=== PATIENT | female | born 1965 | race Caucasian/White ===

== ENCOUNTER 2016-11-12 08:26 | Inpatient (IN) | payer BC ==
[2016-11-12] MEDS ORDERED: HYDROmorphone 1 MG/ML 1 ML SYRINGE IVP STA ×2 (08:47→10:12)
[2016-11-12] MEDS ORDERED: SODIUM CHLORIDE 0.9% 1,000 ML IV STA ×2 (08:47)
[2016-11-12] MEDS ORDERED: ONDANSETRON 4 MG/2 ML VIAL IVP STA (08:47)
--- NOTE | 2016-11-12 08:52 | ED ---
Abdominal Pain HPI - General Chief Complaint: Abdominal Pain Stated Complaint: Abd pain Time Seen by Provider: 11/12/16 08:39 Source: patient, RN notes reviewed Mode of arrival: wheelchair Limitations: no limitations - History of Present Illness Initial Comments: Patient is a 50-year-old female who presents emergency room today with chief complaint of abdominal pain 3 days. She does admit to episodes of nausea vomiting. Admits to pain in the epigastric left upper quadrant that radiates to the back. Patient unable to describe the pain but states it is constant. Patient does admit that it reminds her of pain returns that she's had in the past. Does admit to a history of cholecystectomy. Patient denies any recent fever, chills, shortness of breath, chest pain, back pain, numbness or tingling , dysuria or hematuria, constipation or diarrhea, headaches or visual changes, or any other complaints. - Related Data Home Medications Medication Instructions Recorded Confirmed Loratadine [Claritin] 10 mg PO DAILY 03/20/14 05/04/14 RABEprazole SODIUM [Aciphex] 20 mg PO DAILY 03/20/14 05/04/14 Ovcon 35 1 tab PO QAM 04/30/14 05/04/14 Allergies Allergy/AdvReac Type Severity Reaction Status Date / Time No Known Allergies Allergy Verified 11/12/16 08:37 Review of Systems ROS Statement: Those systems with pertinent positive or pertinent negative responses have been documented in the HPI. ROS Other: All systems not noted in ROS Statement are negative. Past Medical History Past Medical History: GERD/Reflux Additional Past Medical History / Comment(s): pancreatitis History of Any Multi-Drug Resistant Organisms: None Reported Past Surgical History: Appendectomy, Cholecystectomy Past Anesthesia/Blood Transfusion Reactions: No Reported Reaction Past Psychological History: No Psychological Hx Reported Smoking Status: Never smoker Past Alcohol Use History: None Reported Past Drug Use History: None Reported - Past Family History Sister(s) Family Medical History: Cancer Additional Family Medical History / Comment(s): COLON General Exam - General Exam Comments Initial Comments: General: The patient is awake and alert, in no distress, and does not appear acutely ill. Eye: Pupils are equal, round and reactive to light, extra-ocular movements are intact. No nystagmus. There is normal conjunctiva bilaterally. No signs of icterus. Ears, nose, mouth and throat: There are moist mucous membranes and no oral lesions. Neck: The neck is supple, there is no tenderness or JVD. Cardiovascular: There is a regular rate and rhythm. No murmur, rub or gallop is appreciated. Respiratory: Lungs are clear to auscultation, respirations are non-labored, breath sounds are equal. No wheezes, stridor, rales, or rhonchi. Gastrointestinal: No appearance abdomen. Normal bowel sounds. Abdomen soft on palpation. Patient does have mild tenderness in epigastric left upper quadrant. No rebound tenderness. No guarding. No CVA tenderness. Musculoskeletal: Normal ROM, no tenderness. Strength 5/5. Sensation intact. Pulses equal bilaterally 2+. Neurological: A&O x 3. CN II-XII intact, There are no obvious motor or sensory deficits. Coordination appears grossly intact. Speech is normal. Skin: Skin is warm and dry and no rashes or lesions are noted. Psychiatric: Cooperative, appropriate mood & affect, normal judgment. Limitations: no limitations Course Vital Signs 11/12/16 11/12/16 08:36 11:31 Temperature 97.4 F L 98.4 F Pulse Rate 101 H 90 Respiratory 20 16 Rate Blood Pressure 153/86 142/86 O2 Sat by Pulse 98 93 L Oximetry Medical Decision Making - Medical Decision Making Patient's CT does show findings consistent with acute finger tenderness with no areas of decreased enhancement to suggest necrotizing pinky tenderness. 2. Numerous hypoattenuated lesions within the spleen that are too small to accurately characterize and could be artifactual related to phase of enhancement. Case discussed with attending physician to discuss case with admitting physician Dr. Washington - Lab Data Result diagrams: 11/12/16 09:25 11/12/16 09:25 Lab Results 11/12/16 11/12/16 11/12/16 Range/Units 09:14 09:14 09:25 WBC (3.8-10.6) k/uL RBC (3.80-5.40) m/uL Hgb (11.4-16.0) gm/dL Hct (34.0-46.0) % MCV (80.0-100.0) fL MCH (25.0-35.0) pg MCHC (31.0-37.0) g/dL RDW (11.5-15.5) % Plt Count (150-450) k/uL Neutrophils % % Lymphocytes % % Monocytes % % Eosinophils % % Basophils % % Neutrophils # (1.3-7.7) k/uL Lymphocytes # (1.0-4.8) k/uL Monocytes # (0-1.0) k/uL Eosinophils # (0-0.7) k/uL Basophils # (0-0.2) k/uL Sodium 139 (137-145) mmol/L Potassium 3.5 (3.5-5.1) mmol/L Chloride 101 (98-107) mmol/L Carbon Dioxide 22 (22-30) mmol/L Anion Gap 16 mmol/L BUN 10 (7-17) mg/dL Creatinine 0.87 (0.52-1.04) mg/dL Est GFR (MDRD) Af Amer >60 (>60 ml/min/1.73 sqM) Est GFR (MDRD) Non-Af >60 (>60 ml/min/1.73 sqM) Glucose 82 (74-99) mg/dL Calcium 9.4 (8.4-10.2) mg/dL Total Bilirubin 0.6 (0.2-1.3) mg/dL AST 13 L (14-36) U/L ALT 18 (9-52) U/L Alkaline Phosphatase 87 (38-126) U/L Total Protein 7.6 (6.3-8.2) g/dL Albumin 4.0 (3.5-5.0) g/dL Amylase 107 (30-110) U/L Lipase 161 (23-300) U/L Urine Color Yellow Urine Appearance Cloudy H (Clear) Urine pH 5.5 (5.0-8.0) Ur Specific Equality 1.013 (1.001-1.035) Urine Protein Trace H (Negative) Urine Glucose (UA) Negative (Negative) Urine Ketones 4+ H (Negative) Urine Blood Small H (Negative) Urine Nitrite Negative (Negative) Urine Bilirubin Negative (Negative) Urine Urobilinogen <2.0 (<2.0) mg/dL Ur Leukocyte Esterase Moderate H (Negative) Urine RBC 4 (0-5) /hpf Urine WBC 26 H (0-5) /hpf Ur Squamous Epith Cells 7 H (0-4) /hpf Urine Bacteria Many H (None) /hpf Hyaline Casts 4 H (0-2) /lpf Urine Mucus Rare H (None) /hpf Urine HCG, Qual Not Detected (Not Detectd) 11/12/16 Range/Units 09:25 WBC 21.2 H (3.8-10.6) k/uL RBC 4.93 (3.80-5.40) m/uL Hgb 14.8 (11.4-16.0) gm/dL Hct 43.8 (34.0-46.0) % MCV 88.8 (80.0-100.0) fL MCH 30.1 (25.0-35.0) pg MCHC 33.9 (31.0-37.0) g/dL RDW 13.9 (11.5-15.5) % Plt Count 201 (150-450) k/uL Neutrophils % 91 % Lymphocytes % 4 % Monocytes % 3 % Eosinophils % 1 % Basophils % 0 % Neutrophils # 19.3 H (1.3-7.7) k/uL Lymphocytes # 0.8 L (1.0-4.8) k/uL Monocytes # 0.7 (0-1.0) k/uL Eosinophils # 0.2 (0-0.7) k/uL Basophils # 0.0 (0-0.2) k/uL Sodium (137-145) mmol/L Potassium (3.5-5.1) mmol/L Chloride (98-107) mmol/L Carbon Dioxide (22-30) mmol/L Anion Gap mmol/L BUN (7-17) mg/dL Creatinine (0.52-1.04) mg/dL Est GFR (MDRD) Af Amer (>60 ml/min/1.73 sqM) Est GFR (MDRD) Non-Af (>60 ml/min/1.73 sqM) Glucose (74-99) mg/dL Calcium (8.4-10.2) mg/dL Total Bilirubin (0.2-1.3) mg/dL AST (14-36) U/L ALT (9-52) U/L Alkaline Phosphatase (38-126) U/L Total Protein (6.3-8.2) g/dL Albumin (3.5-5.0) g/dL Amylase (30-110) U/L Lipase (23-300) U/L Urine Color Urine Appearance (Clear) Urine pH (5.0-8.0) Ur Specific Equality (1.001-1.035) Urine Protein (Negative) Urine Glucose (UA) (Negative) Urine Ketones (Negative) Urine Blood (Negative) Urine Nitrite (Negative) Urine Bilirubin (Negative) Urine Urobilinogen (<2.0) mg/dL Ur Leukocyte Esterase (Negative) Urine RBC (0-5) /hpf Urine WBC (0-5) /hpf Ur Squamous Epith Cells (0-4) /hpf Urine Bacteria (None) /hpf Hyaline Casts (0-2) /lpf Urine Mucus (None) /hpf Urine HCG, Qual (Not Detectd) Disposition Clinical Impression: Acute pancreatitis Disposition: ADMITTED IP TO THIS HOSP Condition: Good Time of Disposition: 11:43
[2016-11-12 09:43] LABS: Appearance,Urine Cloudy (Clear); Bacteria,Urine Many /hpf; Bilirubin,Urine Negative (Negative); Glucose,Urine (UA) Negative (Negative); Ketones,Urine 4+ (Negative); Leukocyte Esterase,Urine Moderate (Negative); Mucus,Urine Rare /hpf; Nitrite,Urine Negative (Negative); PH, Urine 5.5 (5.0-8.0); Particle Count 17122; Protein,Urine Trace (Negative); RBC,Urine 4 /hpf (0-5); Specific Gravity,Urine 1.013 (1.001-1.035); Squamous Epithelial Cell,Urine 7 /hpf (0-4); UA Billing (MACRO vs. MICRO) MICRO; Urobilinogen,Urine <2.0 mg/dL (<2.0); WBC,Urine 26 /hpf (0-5)
[2016-11-12 09:45] LABS: Basophils % (A) 0 %; CH 30.1; Eosinophils # (A) 0.2 k/uL (0-0.7); Eosinophils % (A) 1 %; HCT 43.8 % (34.0-46.0); HDW 2.76; HGB 14.8 gm/dL (11.4-16.0); Luc # (Auto) 0.22; Luc % (Auto) 1; Lymphocytes # (A) 0.8 k/uL (1.0-4.8); Lymphocytes % (A) 4 %; MCH 30.1 pg (25.0-35.0); MCHC 33.9 g/dL (31.0-37.0); MCV 88.8 fL (80.0-100.0); Mean Platelet Volume 6.8; Monocytes # (A) 0.7 k/uL (0-1.0); Monocytes % (A) 3 %; Neutrophils # (A) 19.3 k/uL (1.3-7.7); Neutrophils % (A) 91 %; RBC 4.93 m/uL (3.80-5.40); RDW 13.9 % (11.5-15.5); WBC 21.2 k/uL (3.8-10.6); WBC (Perox) 20.14
[2016-11-12 09:54] LABS: ALT 18 U/L (9-52); AST 13 U/L (14-36); Alkaline Phosphatase 87 U/L (38-126); Amylase 107 U/L (30-110); Anion Gap 16 mmol/L; Blood Urea Nitrogen 10 mg/dL (7-17); Calcium 9.4 mg/dL (8.4-10.2); Carbon Dioxide 22 mmol/L (22-30); Chloride 101 mmol/L (98-107); Glucose 82 mg/dL (74-99); Non-African American GFR(MDRD) >60 (>60 ml/min/1.73 sqM); Potassium 3.5 mmol/L (3.5-5.1); Sodium 139 mmol/L (137-145); Total Bilirubin 0.6 mg/dL (0.2-1.3); Total Protein 7.6 g/dL (6.3-8.2)
--- NOTE | 2016-11-12 10:03 | XR ---
EXAMINATION TYPE: XR KUB DATE OF EXAM: 11/12/2016 9:39 AM COMPARISON: 03/20/2014 HISTORY: Abdominal pain and vomiting with associated anorexia. History of cholecystectomy. TECHNIQUE: Upright and supine abdominal radiograph were obtained. FINDINGS: Cholecystectomy clips are seen within the right upper quadrant as well as dropped clip over lying the right iliac crest. Bowel gas pattern is nonobstructive with air noted throughout the colon as well as rectum. No dilated bowel or differential air-fluid levels are visualized. No abnormal calc ifications are seen within the abdomen or pelvis. No gross evidence for organomegaly. Liver length is noted within the right low pelvis. IMPRESSION: Nonobstructive bowel gas pattern with no acute intra-abdominal pathology.
[2016-11-12] MEDS ORDERED: RX INFO: IV CONTRAST WAS GIVEN 1 EACH MISC MISCELLANE PRN (10:12)
--- NOTE | 2016-11-12 11:12 | CT ---
EXAMINATION TYPE: CT abdomen pelvis w con DATE OF EXAM: 11/12/2016 10:46 AM HISTORY: Abdominal pain for 3 days. History of pancreatitis. Surgical history includes appendectomy and cholecystectomy. CT DLP: 885.70mGycm Automated Exposure Control for Dose Reduction was Utilized. CONTRAST: CT scan of the abdomen and pelvis is performed with IV Contrast, patient injected with 100 ml mL of O mnipaque 300. COMPARISON: None. FINDINGS: LUNG BASES: Minimal bibasilar subsegmental atelectasis is noted.. LIVER/GB: 1.5 cm hypoattenuated hepatic lesion within the hepatic dome represents a benign hepatic cy st. Remainder of the hepatic parenchyma enhances homogeneously. Cholecystectomy clips reside within t he right upper quadrant. Dropped clip is noted along the right lateral conal fascia. PANCREAS: The pancreas is diffusely enlarged and slightly hypoattenuated with no focal areas of decre ased enhancement. No pancreatic ductal dilation is evident. Mild generalized peripancreatic fat stran ding is seen most pronounced near the lesser curvature of the stomach inferiorly. No peripancreatic f ocal fluid collections are seen. Portal venous vasculature appears patent. No splenic artery pseudoan eurysm is evident. SPLEEN: Numerous areas of hypoattenuation are seen within the spleen that are subcentimeter and too s mall to accurately characterize. The largest of these measures approximately 7 mm and does not measur e Hounsfield units compatible with fluid. ADRENALS: No significant abnormality is seen. KIDNEYS: No significant abnormality is seen. BOWEL: Numerous colonic diverticula are noted without pericolonic fat stranding. UTERUS/ADNEXA: The uterus is lobulated and enlarged with numerous exophytic hypoattenuated masses the largest measuring up to 6.7 cm emanating from the right lateral fundal myometrium. Central high dens ity in the right adnexa may relate to hemorrhage ovarian follicle or be contained within the most sup erior aspect of a pedunculated uterine leiomyoma. This is seen on image 68 of 98 on series 3. LYMPH NODES: No greater than 1cm abdominal or pelvic lymph nodes are appreciated. Few prominent but n ot enlarged periaortic lymph nodes are present. OSSEOUS STRUCTURES: No significant abnormality is seen. No suspicious osseous lesions are seen. OTHER: Diastases recti with a small fat filled umbilical hernia are seen. IMPRESSION: 1. Findings compatible with acute pancreatitis with no areas of decreased enhancement to suggest necr otizing pancreatitis. No focal fluid collections, splenoportal thrombosis, or splenic arterial pseudo aneurysms are present. 2. Numerous hypoattenuated lesions within the spleen that are too small to accurately characterize an d could be artifactual related to phase of enhancement. Correlate with white blood cell count. 3. Macrolobulated uterus, presumably relating to uterine fibroids with focal area of hyperattenuation along the right adnexa. This may relate to hemorrhagic cyst or be contained within a pedunculated ut erine leiomyoma. Pelvic ultrasound could be performed for further evaluation if clinically warranted.
[2016-11-12] MEDS ORDERED: ACETAMINOPHEN TAB 325 MG TAB PO PRN (11:44)
[2016-11-12] MEDS ORDERED: NALOXONE 0.4 MG/ML 1 ML VIAL IV PRN (11:44)
[2016-11-12] MEDS ORDERED: SODIUM CHLORIDE 0.9% 1,000 ML IV ONE (11:44)
[2016-11-12] MEDS ORDERED: ONDANSETRON 4 MG/2 ML VIAL IVP PRN (11:44)
[2016-11-12] MEDS: HYDROmorphone 1 MG/ML 1 ML SYRINGE IV PRN ×3 (14:10→21:39)
[2016-11-12] MEDS ORDERED: ENOXAPARIN 40 MG/0.4 ML SYRINGE SQ SCH (21:00)
[2016-11-12] MEDS: SODIUM CHLORIDE 0.9% 1,000 ML IV SCH (21:10)
[2016-11-13] MEDS: HYDROmorphone 1 MG/ML 1 ML SYRINGE IV PRN (02:35)
[2016-11-13] MEDS: SODIUM CHLORIDE 0.9% 1,000 ML IV SCH ×4 (03:49→21:00)
--- NOTE | 2016-11-13 05:22 | HP ---
DATE OF ADMISSION: 11/12/2016 PRESENTING COMPLAINT: Abdominal pain. HISTORY OF PRESENTING COMPLAINT: This is a very pleasant 50-year-old patient of Dr. Brower. Patient's chronic stable medical conditions include GERD, uterine fibroids, menorrhagia. Patient had a previous episode of pancreatitis, was found to have some gallbladder sludge. Did have a cholecystectomy. Patient for 3 days started having increasing abdominal pain in the epigastric, mid abdomen level. Pain going to the back, nausea or vomiting and finally decided to come in. CT scan confirmed acute pancreatitis. Patient admitted for the same. Denies any alcohol, maybe 1 or 2 drinks a year. Put on IV fluids. REVIEW OF SYSTEMS: CONSTITUTIONAL: Tired. HEENT: None. RESPIRATORY: None. CARDIOVASCULAR: None. GASTROINTESTINAL: As above. GENITOURINARY: Patient has menorrhagia. DERMATOLOGIC: None. HEMATOLOGIC: None. LYMPHATICS: None. PSYCHIATRY: None. NEUROLOGICAL: None. Past history of pancreatitis, GERD, uterine fibroids, menorrhagia. PAST SURGICAL HISTORY: Appendectomy, cholecystectomy, uterine fibroid removal. SOCIAL HISTORY: No smoking. No alcohol. 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 . Family history of colon cancer. HOME MEDICATIONS: 1. AcipHex 20 mg p.o. daily. 2. Ovcon 35 one tablet p.o. daily. 3. Claritin 10 mg daily. ALLERGIES: None. . On examination, temperature 97.9, pulse 86, respiration 19, blood pressure 123/73, pulse ox 95% on room air. GENERAL APPEARANCE: Average built, lying in bed, not in distress. EYES: Pupils equal. Conjunctivae normal. HEENT: Oral cavity normal. NECK: JVD not raised. Mass not palpable. RESPIRATORY: Effort normal. LUNGS: Clear. CARDIOVASCULAR: First and second sounds normal. No edema. ABDOMEN: Epigastric tenderness. No guarding or rigidity. Liver and spleen not palpable. LYMPHATIC: No lymph nodes palpable in neck or axillae. PSYCHIATRY: Alert and oriented x3. Mood and affect normal. NEUROLOGICAL: Pupils equal. Cranial nerves grossly intact. Power and sensation grossly intact. INVESTIGATIONS: White count 21.2, hemoglobin 14.9, increased neutrophils. Potassium 3.5. UA noted. CT scan of the abdomen reporting acute pancreatitis like picture. ASSESSMENT: 1. Acute pancreatitis in a patient who has had prior episode, no precipitating cause. Patient's amylase and lipase was normal, which is ( ) unusual because patient does not have symptoms of chronic pancreatitis, otherwise. 2. Leukocytosis from above. 3. Asymptomatic bacteriuria in ( ) samples and no specific urine symptoms. 4. Chronic gastroesophageal reflux disease. 5. Chronic uterine fibroids. 6. Chronic menorrhagia from fibroids. PLAN: At this point, the patient will be given IV fluids, made n.p.o. except for ice chips. Repeat labs in the morning. Care was discussed in detail with the patient and at bedside. Questions were answered.
[2016-11-13 08:27] LABS: Basophils % (A) 0 %; CH 30.2; CHCM 33.6; Eosinophils # (A) 0.2 k/uL (0-0.7); Eosinophils % (A) 1 %; HCT 36.8 % (34.0-46.0); HDW 2.79; HGB 11.9 gm/dL (11.4-16.0); Luc # (Auto) 0.25; Luc % (Auto) 2; Lymphocytes % (A) 6 %; MCH 29.1 pg (25.0-35.0); MCHC 32.2 g/dL (31.0-37.0); MCV 90.3 fL (80.0-100.0); Mean Platelet Volume 7.1; Monocytes # (A) 0.8 k/uL (0-1.0); Monocytes % (A) 5 %; Neutrophils # (A) 13.9 k/uL (1.3-7.7); Neutrophils % (A) 86 %; RBC 4.08 m/uL (3.80-5.40); RDW 13.9 % (11.5-15.5); WBC 16.1 k/uL (3.8-10.6); WBC (Perox) 17.19
[2016-11-13 08:39] LABS: AST 10 U/L (14-36); Alkaline Phosphatase 68 U/L (38-126); Amylase 37 U/L (30-110); Anion Gap 9 mmol/L; Blood Urea Nitrogen 8 mg/dL (7-17); Calcium 8.1 mg/dL (8.4-10.2); Carbon Dioxide 26 mmol/L (22-30); Chloride 102 mmol/L (98-107); Glucose 92 mg/dL (74-99); Non-African American GFR(MDRD) >60 (>60 ml/min/1.73 sqM); Potassium 3.1 mmol/L (3.5-5.1); Sodium 137 mmol/L (137-145); Total Bilirubin 0.6 mg/dL (0.2-1.3); Total Protein 6.2 g/dL (6.3-8.2)
[2016-11-13 08:46] LABS: ALT 21 U/L (9-52)
[2016-11-13] MEDS: KETOROLAC 30 MG/ML 1 ML VIAL IVP PRN (11:21)
[2016-11-13] MEDS ORDERED: POTASSIUM CHLORIDE ER 20 MEQ TAB.ER PO STA (19:33)
--- NOTE | 2016-11-13 20:12 | CONS ---
DATE OF CONSULTATION: 11/13/2016 REASON FOR CONSULTATION: Abdominal pain. HISTORY OF PRESENT ILLNESS: The patient is a 50-year-old pleasant lady admitted to the hospital because of severe epigastric pain for the last 4 days' duration. The pain continued to progressively get worse, associated with some nausea and vomiting, and yesterday she came into the emergency room and subsequently was admitted to the hospital for further evaluation. She had a similar episode of pain about 3 years ago, at which time she was diagnosed with acute pancreatitis. In the ER she had amylase and lipase done that were within normal limits, but she had a CT of the abdomen and pelvis done that showed the pancreas to be diffusely enlarged with hypoattenuation and mild generalized peripancreatic stranding consistent with acute pancreatitis. This morning she still has some pain, which is better. No further episodes of nausea or vomiting. Her past medical history is significant for: 1. Prior history of pancreatitis 3 years ago. 2. History of gastroesophageal reflux disease, on AcipHex. PAST SURGICAL HISTORY: 1. Appendectomy. 2. Cholecystectomy. MEDICATIONS AT HOME: 1. AcipHex. 2. Claritin. 3. Ovcon. ALLERGIES: NONE. SOCIAL HISTORY: No smoking. Occasional alcohol use. FAMILY HISTORY: Unremarkable. REVIEW OF SYSTEMS: CARDIOPULMONARY: No chest pain or shortness of breath. GENITOURINARY: No dysuria or hematuria. MUSCULOSKELETAL: Unremarkable. SKIN: Unremarkable. ENDOCRINE: Unremarkable. PSYCHIATRIC: Unremarkable. NEUROLOGY: Unremarkable. ENT/VISION: Unremarkable. CONSTITUTIONAL: No recent weight loss. No fever, chills, night sweats. On physical examination, she appears comfortable, in no apparent distress. Vital signs are stable. Blood pressure is 133/65, pulse rate 88, temperature 98.1. HEENT EXAMINATION: Unremarkable. Conjunctivae pink. Sclerae anicteric. Oral cavity with no lesions. NECK: No JVD or lymph node enlargement. Chest was clear to auscultation. HEART: Regular rate and rhythm. ABDOMEN: Soft. There was mild tenderness in the epigastric area. Bowel sounds are positive. No organomegaly. EXTREMITIES: No pedal edema. SKIN: No rashes. NEURO: She is alert and oriented x3. No focal deficits. LABS DONE AT THE TIME OF ADMISSION TO THE HOSPITAL: Amylase and lipase are within normal limits. WBC was 21.2 and today it is 16.1. Hemoglobin is normal. Platelets are normal. ALT, AST, T-bili and alkaline phosphatase are normal. Amylase is 37. Lipase is 80. CT of the abdomen showed pancreas to be diffusely enlarged, consistent with acute pancreatitis. IMPRESSION: This is a lady who presents with severe epigastric pain for the last 4 days' duration and noted to have normal amylase and lipase; however, CT scan did show changes consistent with acute pancreatitis. She had a similar episode about 3 years ago and, according to the patient, she was diagnosed with severe pancreatitis needing 5 days of hospitalization. No history of alcohol abuse. Her serum transaminases are within normal limits. She is status post gallbladder surgery 3 years ago with sludge in the gallbladder. Etiology of pancreatitis at this time is unclear. RECOMMENDATIONS: 1. Start her on clear liquid diet. 2. Repeat labs today. 3. If her symptoms continue to improve, she can be discharged home tomorrow with an outpatient workup for acute recurrent pancreatitis in the near future. In the meantime, I have requested fasting serum triglycerides and IgG4 levels to evaluate for autoimmune pancreatitis. Will follow the patient closely during her hospital stay. Thank you for this consultation.
[2016-11-13] MEDS ORDERED: ENOXAPARIN 40 MG/0.4 ML SYRINGE SQ SCH (21:00)
[2016-11-14] MEDS: KETOROLAC 30 MG/ML 1 ML VIAL IVP PRN (04:32)
--- NOTE | 2016-11-14 05:16 | PN ---
DATE OF SERVICE: 11/13/2016 PRESENTING COMPLAINT: Abdominal pain. INTERVAL HISTORY: This is a 50-year-old female who presented to the emergency department on 11/12/2016 with complaints of increasing abdominal pain in the epigastric and abdominal area for the previous 3 days. Pain described as going to her back, nausea and vomiting. CT scan confirmed acute pancreatitis. Today the patient and patient's at the bedside. Patient appears comfortable, lying in bed, sitting with knees drawn to her chest. No particular reason. No acute distress noted or voiced. Patient say she took some IV pain medications from her nurse for increasing pain to her abdominal area. Review of systems done for constitutional, cardiovascular, GI, pulmonary, with relevant findings as above. CURRENT MEDICATIONS: Acetaminophen, enoxaparin, hydromorphone, ketorolac, ondansetron, normal saline IV fluids. PHYSICAL EXAM: VITAL SIGNS: Temperature 98.6, pulse 82, respirations 19, blood pressure 104/85, oxygen saturation 90% on room air. GENERAL APPEARANCE: Patient lying in bed, appears comfortable. Complains of mild epigastric and left upper quadrant pain. EYES: Pupils equal. Conjunctivae normal. NECK: JVD not raised. Mass not palpable. LUNGS: Breath sounds clear to auscultation bilaterally. RESPIRATORY: Effort normal. Unlabored. CARDIOVASCULAR: S1, S2 normal. Trace edema noted to bilateral feet and legs. ABDOMEN: Soft, tender to palpation to the left upper quadrant, mid epigastric area. PSYCHIATRIC: Alert and oriented x3. Mood and affect normal. INVESTIGATIONS: White blood cell count 16.1, down from 21.2. Potassium 3.1. Calcium 8.1. AST 10. Total protein 6.2. Albumin 3.0. ASSESSMENT: 1. Acute pancreatitis in a patient who has had a prior episode with no precipitating cause. Patient's amylase and lipase is normal, which is somewhat unusual because the patient does not have symptoms of chronic pancreatitis, otherwise. 2. Leukocytosis from above. 3. Asymptomatic ( ) in urine samples and no specific urine symptoms. 4. Chronic gastroesophageal reflux disease. 5. Chronic uterine fibroids. 6. Chronic menorrhagia from fibroids. PLAN: Patient continues to receive IV fluids. Diet has been advanced to clear liquids to be advanced further if patient can tolerate to soft bland, low fat diet. Labs to be repeated in the a.m. Plan of care was discussed in detail with both the patient and the patient's .
[2016-11-14] MEDS: SODIUM CHLORIDE 0.9% 1,000 ML IV SCH (05:45)
[2016-11-14 07:35] VITALS: BP 121/75; PULSE 72; RESP 19; TEMP 97.3
[2016-11-14 09:35] LABS: CH 30.2; CHCM 33.3; HCT 38.5 % (34.0-46.0); HDW 2.94; HGB 12.2 gm/dL (11.4-16.0); MCH 28.8 pg (25.0-35.0); MCHC 31.7 g/dL (31.0-37.0); RBC 4.23 m/uL (3.80-5.40); RDW 13.9 % (11.5-15.5); WBC 9.2 k/uL (3.8-10.6)
[2016-11-14 10:10] LABS: Anion Gap 12 mmol/L; Blood Urea Nitrogen 8 mg/dL (7-17); Calcium 8.3 mg/dL (8.4-10.2); Carbon Dioxide 22 mmol/L (22-30); Chloride 107 mmol/L (98-107); Glucose 146 mg/dL (74-99); Non-African American GFR(MDRD) >60 (>60 ml/min/1.73 sqM); Potassium 3.1 mmol/L (3.5-5.1); Sodium 141 mmol/L (137-145); Triglycerides 75 mg/dL (<150)
--- NOTE | 2016-11-14 12:06 | P.PN ---
Subjective Principal diagnosis: 50 year old admitted with midepigastric upper abdominal pain with normal amylase /lipase LFTs. History of pancreatitis 3 years ago. Radiographic features suggestive of acute pancreatitis. Feels better today. Minimal pain. Triglycerides not elevated. IgG sublass pending. Afebrile. Objective - Vital Signs Vital signs: Vital Signs Temp 97.3 F L 11/14/16 07:00 Pulse 72 11/14/16 07:00 Resp 19 11/14/16 07:00 BP 121/75 11/14/16 07:00 Pulse Ox 95 11/14/16 07:00 Intake & Output 11/13/16 11/14/16 11/14/16 18:59 06:59 18:59 Other: # Voids 1 1 1 # Bowel Movements 0 - Exam General appearance: The patient is alert, oriented, in no acute distress. HET: Head is normocephalic and atraumatic. Pupils are equal and reactive. Oropharynx is clear without lesions. Neck: Supple without lymphadenopathy. Trachea midline. Heart: S1 S2. Regular rate and rhythm. Lungs: No crackles or wheezes are heard. Abdomen: Soft, nontender, nondistended with bowel sounds. No peritoneal signs. No palpable organomegaly or masses. Extremities: Normal skin color and turgor. No cyanosis, rash, ulceration, clubbing, or edema. Radial and pedal pulses are 2/4 bilaterally. Neurological: No focal deficits. Strength and sensation are grossly intact. - Labs CBC & Chem 7: 11/14/16 08:32 11/14/16 08:32 Labs: Abnormal Lab Results - Last 24 Hours (Table) 11/14/16 Range/Units 08:32 Potassium 3.1 L (3.5-5.1) mmol/L Glucose 146 H (74-99) mg/dL Calcium 8.3 L (8.4-10.2) mg/dL Assessment and Plan (1) Acute pancreatitis Narrative/Plan: Radiographic evidence to suggest acute pancreatitis biochemically amylase lipase LFTs within normal limits with history of pancreatitis. Possible autoimmune pancreatitis Status: Acute Plan: 1. Advance diet. 2. Agreeable for DC. 3. RTO 1 week for reevaluation. Assessment and plan of care discussed with Dr. Hardin.
--- NOTE | 2016-11-14 13:47 | PN ---
DATE OF SERVICE: 11/13/2016 ATTENDING NOTE: This patient was seen and examined by me yesterday on 11/13/2016. I agree with the note of my nurse practitioner, Ms. Duenas with changes as below. This is a patient admitted with acute pancreatitis, cause unknown. Overall feeling better. Did tolerate some clear liquids, up to the bathroom. On exam, ABDOMEN: Epigastric mild tenderness. No guarding or rigidity. INVESTIGATIONS: Amylase, lipase was normal. White count is down to 16.1. ASSESSMENT: 1. Acute pancreatitis, idiopathic, leukocytosis is improving. 2. Asymptomatic bacteriuria. PLAN: Care was discussed with the patient. Diet will be slowly advanced. Overall doing better. Questions were answered.
[2016-11-15 11:23] LABS: IgG Subclass 3 20.3 mg/dL (11.0-85.0); IgG Subclass 4 84.2 mg/dL (3.0-175.0)
--- NOTE | 2016-11-15 12:45 | DS ---
DATE OF ADMISSION: 11/12/2016 DATE OF DISCHARGE: 11/14/2016 FINAL DIAGNOSES: 1. Acute idiopathic pancreatitis, present on admission. 2. Leukocytosis from above. 3. Asymptomatic bacteriuria. 4. Chronic gastroesophageal reflux disease. 5. Chronic uterine fibroids. 6. Chronic menorrhagia from fibroids. HOSPITAL COURSE: This patient presented with acute pancreatitis shown by CT scan and doing much better by the time of discharge. Care was discussed in detail with the patient. Patient numbers were good at the time of discharge. Care was discussed in detail including prognosis. The patient will see Dr. Shahbaz Hardin as an outpatient. On examination, lungs are clear. CARDIOVASCULAR: First and second sounds normal. ABDOMEN: Soft, nontender. DISCHARGE MEDICATIONS: 1. AcipHex 20 mg daily. 2. Ovcon 35 one tablet p.o. daily. 3. Claritin 10 mg p.o. daily. DIET: Soft, low-fat. Follow with Dr. Shahbaz Hardin on 12/06/2016. Follow with Dr. Mina Brower on 2016. Discharge planning more than 35 minutes.
== END 2016-11-14 13:57 | disposition home or self-care (01) | DRG 440 ==
LOC: EC 08:26 → 4MS4W 11:41
PROVIDERS: ADMIT Hospitalist; ATTEND Hospitalist
DX: K85.90 Acute pancreatitis without necrosis or infection, unspecified (principal); D25.9 Leiomyoma of uterus, unspecified; K21.9 Gastro-esophageal reflux disease without esophagitis; N92.0 Excessive and frequent menstruation with regular cycle; Z80.0 Family history of malignant neoplasm of digestive organs; Z79.899 Other long term (current) drug therapy
CPT/HCPCS: 36415; 74000; 74177; 80048; 80053; 81001; 81025; 82150; 82787; 83690; 84478; 85025; 85027; 96361; 96374; 96375; 96376; 99285

== ENCOUNTER 2016-12-24 07:53 | Inpatient (IN) | payer BC ==
[2016-12-24] MEDS ORDERED: HYDROmorphone 1 MG/ML 1 ML SYRINGE IVP STA (08:26)
[2016-12-24] MEDS ORDERED: SODIUM CHLORIDE 0.9% 1,000 ML IV STA (08:26)
[2016-12-24] MEDS ORDERED: ONDANSETRON 4 MG/2 ML VIAL IVP STA (08:26)
--- NOTE | 2016-12-24 08:30 | ED ---
Abdominal Pain HPI - General Source: patient, RN notes reviewed Mode of arrival: wheelchair Limitations: no limitations <Key Valadez - Last Filed: 12/24/16 09:25> <Jose G Gomez - Last Filed: 12/24/16 09:32> - General Chief Complaint: Abdominal Pain Stated Complaint: abd pain Time Seen by Provider: 12/24/16 08:22 - History of Present Illness Initial Comments: 51-year-old female presents to the emergency department with a chief of abdominal pain. Patient states she started to develop this abdominal pain on Sunday. Patient states is in the center of her abdomen and radiates to the back. Patient states she has a long history of pancreatitis there currently trying to figure out why she is getting it. Patient states her pain feels much like that so she was concerned. Patient states she's had nausea vomiting with this. Patient denies any diarrhea any fevers. Patient states that she was concerned due to her pain so she thought that she should be evaluated. Patient denies any cough cold or runny nose. Patient states she has had her gallbladder and her appendix removed.Patient denies any recent fever, chills, shortness of breath, chest pain, back pain, numbness or tingling, dysuria or hematuria, constipation or diarrhea, headaches or visual changes, or any other current symptoms. (Key Valadez) - Related Data Home Medications Medication Instructions Recorded Confirmed Loratadine [Claritin] 10 mg PO DAILY 03/20/14 12/24/16 RABEprazole SODIUM [Aciphex] 20 mg PO DAILY 03/20/14 12/24/16 Ovcon 35 1 tab PO QAM 04/30/14 12/24/16 HYDROcodone/APAP 5-325MG [[place] 1 tab PO Q6H PRN 12/24/16 12/24/16 5-325] Ibuprofen [Motrin] 600 mg PO Q6HR PRN 12/24/16 12/24/16 Allergies Allergy/AdvReac Type Severity Reaction Status Date / Time No Known Allergies Allergy Verified 12/24/16 08:32 Review of Systems ROS Other: All systems not noted in ROS Statement are negative. <Key Valadez - Last Filed: 12/24/16 09:25> ROS Other: All systems not noted in ROS Statement are negative. <Jose G Gomez - Last Filed: 12/24/16 09:32> ROS Statement: Those systems with pertinent positive or pertinent negative responses have been documented in the HPI. Past Medical History Past Medical History: GERD/Reflux Additional Past Medical History / Comment(s): pancreatitis History of Any Multi-Drug Resistant Organisms: None Reported Past Surgical History: Appendectomy, Cholecystectomy Additional Past Surgical History / Comment(s): uterine fibroid removed Past Anesthesia/Blood Transfusion Reactions: No Reported Reaction Past Psychological History: No Psychological Hx Reported Smoking Status: Never smoker Past Alcohol Use History: None Reported Past Drug Use History: None Reported - Past Family History Sister(s) Family Medical History: Cancer Additional Family Medical History / Comment(s): COLON <Key Valadez - Last Filed: 12/24/16 09:25> General Exam Limitations: no limitations <Key Valadez - Last Filed: 12/24/16 09:25> <JasonJose G - Last Filed: 12/24/16 09:32> - General Exam Comments Initial Comments: General: The patient is awake and alert, in no distress, and does not appear acutely ill. Eye: Pupils are equal, round and reactive to light, extra-ocular movements are intact; there is normal conjunctiva bilaterally. No signs of icterus. Ears, nose, mouth and throat: There are moist mucous membranes and no oral lesions. Neck: The neck is supple, there is no tenderness. Cardiovascular: There is a regular rate and rhythm. No murmur, rub or gallop is appreciated. Respiratory: Lungs are clear to auscultation, respirations are non-labored, breath sounds are equal. No wheezes, stridor, rales, or rhonchi. Gastrointestinal: Soft, non-distended, epigastric tenderness of the abdomen without masses or organomegaly noted. There is no rebound or guarding present. No CVA tenderness. Bowel sounds are unremarkable. Back: There is no tenderness to palpation in the midline. There is no obvious deformity. No rashes noted. Musculoskeletal: Normal ROM, no tenderness, There is no pedal edema. There is no calf tenderness or swelling. Sensation intact. Pulses equal bilaterally 2+. Neurological: CN II-XII intact, There are no obvious motor or sensory deficits. Coordination appears grossly intact. Speech is normal. Skin: Skin is warm and dry and no rashes or lesions are noted. Psychiatric: Cooperative, appropriate mood & affect, normal judgment. (Key Valadez) Medical Decision Making - Lab Data Result diagrams: 12/24/16 08:20 12/24/16 08:20 - Radiology Data Radiology results: report reviewed, image reviewed <Key Valadez - Last Filed: 12/24/16 09:25> - Lab Data Result diagrams: 12/24/16 08:20 12/24/16 08:20 <Jose G Gomez - Last Filed: 12/24/16 09:32> - Medical Decision Making 51-year-old female presents to the emergency department chief complaint of abdominal pain. At this time patient does appear to have acute pancreatitis. This and we will admit the patient. We did order an ultrasound to be followed up upon by the admitting team. Patient is in agreement with plan. She is feeling better with the medication she had received. We did discuss all her questions. (Key Valadez) Patient reevaluated by myself, Dr. Gomez. Abdomen soft with minimal tenderness at this time. Lab and x-ray reviewed. Case discussed with petition her mother , who will admit for Dr. tanner, covering for . Patient was updated on results and plan. (Jose G Gomez) - Lab Data Lab Results 12/24/16 12/24/16 12/24/16 Range/Units 08:20 08:20 08:20 WBC 21.2 H (3.8-10.6) k/uL RBC 5.00 (3.80-5.40) m/uL Hgb 14.8 (11.4-16.0) gm/dL Hct 44.6 (34.0-46.0) % MCV 89.2 (80.0-100.0) fL MCH 29.6 (25.0-35.0) pg MCHC 33.1 (31.0-37.0) g/dL RDW 14.3 (11.5-15.5) % Plt Count 206 (150-450) k/uL Neutrophils % 92 % Lymphocytes % 5 % Monocytes % 2 % Eosinophils % 1 % Basophils % 0 % Neutrophils # 19.4 H (1.3-7.7) k/uL Lymphocytes # 1.0 (1.0-4.8) k/uL Monocytes # 0.5 (0-1.0) k/uL Eosinophils # 0.2 (0-0.7) k/uL Basophils # 0.0 (0-0.2) k/uL Sodium 138 (137-145) mmol/L Potassium 3.8 (3.5-5.1) mmol/L Chloride 101 (98-107) mmol/L Carbon Dioxide 25 (22-30) mmol/L Anion Gap 12 mmol/L BUN 10 (7-17) mg/dL Creatinine 0.81 (0.52-1.04) mg/dL Est GFR (MDRD) Af Amer >60 (>60 ml/min/1.73 sqM) Est GFR (MDRD) Non-Af >60 (>60 ml/min/1.73 sqM) Glucose 103 H (74-99) mg/dL Calcium 9.1 (8.4-10.2) mg/dL Total Bilirubin 0.7 (0.2-1.3) mg/dL AST 20 (14-36) U/L ALT 19 (9-52) U/L Alkaline Phosphatase 104 (38-126) U/L Total Protein 7.5 (6.3-8.2) g/dL Albumin 4.2 (3.5-5.0) g/dL Amylase 684 H* (30-110) U/L Lipase 2921 H (23-300) U/L Urine Color Yellow Urine Appearance Cloudy H (Clear) Urine pH 5.5 (5.0-8.0) Ur Specific [place] 1.022 (1.001-1.035) Urine Protein Trace H (Negative) Urine Glucose (UA) Negative (Negative) Urine Ketones 2+ H (Negative) Urine Blood Trace H (Negative) Urine Nitrite Negative (Negative) Urine Bilirubin Negative (Negative) Urine Urobilinogen <2.0 (<2.0) mg/dL Ur Leukocyte Esterase Trace H (Negative) Urine RBC 4 (0-5) /hpf Urine WBC 4 (0-5) /hpf Ur Squamous Epith Cells 11 H (0-4) /hpf Urine Bacteria Few H (None) /hpf Urine Mucus Rare H (None) /hpf Disposition Time of Disposition: :26 Decision Date: 12/24/16 Decision Time: : <Key Valadez - Last Filed: 12/24/16 09:25> <Jose G Gomez - Last Filed: 12/24/16 09:32> Clinical Impression: Acute pancreatitis Disposition: ADMITTED IP TO THIS HOSP Condition: Stable Referrals: Mina Brower MD [Primary Care Provider] - 1-2 days
[2016-12-24 08:37] LABS: Basophils % (A) 0 %; CH 30.4; CHCM 34.2; Eosinophils # (A) 0.2 k/uL (0-0.7); Eosinophils % (A) 1 %; HCT 44.6 % (34.0-46.0); HDW 2.67; HGB 14.8 gm/dL (11.4-16.0); Luc # (Auto) 0.14; Luc % (Auto) 1; Lymphocytes % (A) 5 %; MCH 29.6 pg (25.0-35.0); MCHC 33.1 g/dL (31.0-37.0); MCV 89.2 fL (80.0-100.0); Mean Platelet Volume 7.2; Monocytes # (A) 0.5 k/uL (0-1.0); Monocytes % (A) 2 %; Neutrophils # (A) 19.4 k/uL (1.3-7.7); Neutrophils % (A) 92 %; RDW 14.3 % (11.5-15.5); WBC 21.2 k/uL (3.8-10.6); WBC (Perox) 20.21
[2016-12-24 08:40] LABS: Appearance,Urine Cloudy (Clear); Bacteria,Urine Few /hpf; Bilirubin,Urine Negative (Negative); Glucose,Urine (UA) Negative (Negative); Ketones,Urine 2+ (Negative); Leukocyte Esterase,Urine Trace (Negative); Mucus,Urine Rare /hpf; Nitrite,Urine Negative (Negative); PH, Urine 5.5 (5.0-8.0); Particle Count 8621; Protein,Urine Trace (Negative); RBC,Urine 4 /hpf (0-5); Specific Gravity,Urine 1.022 (1.001-1.035); Squamous Epithelial Cell,Urine 11 /hpf (0-4); UA Billing (MACRO vs. MICRO) MICRO; Urobilinogen,Urine <2.0 mg/dL (<2.0); WBC,Urine 4 /hpf (0-5)
[2016-12-24 08:55] LABS: ALT 19 U/L (9-52); AST 20 U/L (14-36); Alkaline Phosphatase 104 U/L (38-126); Anion Gap 12 mmol/L; Blood Urea Nitrogen 10 mg/dL (7-17); Calcium 9.1 mg/dL (8.4-10.2); Carbon Dioxide 25 mmol/L (22-30); Chloride 101 mmol/L (98-107); Glucose 103 mg/dL (74-99); Non-African American GFR(MDRD) >60 (>60 ml/min/1.73 sqM); Potassium 3.8 mmol/L (3.5-5.1); Sodium 138 mmol/L (137-145); Total Bilirubin 0.7 mg/dL (0.2-1.3); Total Protein 7.5 g/dL (6.3-8.2)
[2016-12-24 09:04] LABS: Amylase 684 U/L (30-110)
--- NOTE | 2016-12-24 09:09 | XR ---
EXAMINATION TYPE: XR abdomen 2V DATE OF EXAM: 12/24/2016 COMPARISON: NONE HISTORY: Epigastric TECHNIQUE: 2 abdominal series FINDINGS: The osseous structures are intact. The bowel gas pattern is nonspecific. Lung bases are clear. Calc ifications in the pelvis are likely vascular. Arthropathy of the hips. Surgical clips in the gallblad halley fossa. IMPRESSION: 1. Nonspecific abdomen.
[2016-12-24] MEDS ORDERED: NALOXONE 0.4 MG/ML 1 ML VIAL IV PRN (09:26)
--- NOTE | 2016-12-24 10:14 | US ---
EXAMINATION TYPE: US gallbladder DATE OF EXAM: 12/24/2016 COMPARISON: NONE CLINICAL HISTORY: Pain. hx: cholecystectomy EXAM MEASUREMENTS: Liver Length: 17.8 cm Gallbladder Wall: Surgically absent CBD: 0.5 cm Right Kidney: 10.2 x 4.3 x 5.3 cm Limited due to bowel gas. Pancreas: wnl Liver: wnl Gallbladder: Surgically absent Evidence for sonographic Sanches's sign: No CBD: wnl Right Kidney: wnl IMPRESSION: Postcholecystectomy changes.
[2016-12-24] MEDS: SODIUM CHLORIDE 0.9% 1,000 ML IV SCH ×2 (10:15→21:03)
[2016-12-24 10:44] VITALS: BMI 28.0
[2016-12-24] MEDS: HYDROmorphone 1 MG/ML 1 ML SYRINGE IV PRN ×4 (11:21→20:59)
[2016-12-24] MEDS: ONDANSETRON 4 MG/2 ML VIAL IVP PRN (16:42)
[2016-12-25] MEDS: ONDANSETRON 4 MG/2 ML VIAL IVP PRN ×3 (00:31→17:23)
[2016-12-25] MEDS: HYDROmorphone 1 MG/ML 1 ML SYRINGE IV PRN ×7 (00:32→23:29)
--- NOTE | 2016-12-25 03:39 | P.CONS ---
History of Present Illness - Reason for Consult Consult date: 12/24/16 - History of Present Illness The patient is a 51-year-old female who presented to the emergency department with a chief of abdominal pain. Patient states she started to develop this abdominal pain on SundayDecember 22. Patient states the pain is felt in the center of her abdomen and radiates to the back. She had nausea and vomiting as well. The patient was found to have elevated amylase and lipase and was admitted for further management of her pancreatitis. The patient had 2 prior episodes of pancreatitis. One around 3 years ago and a recent episode in November of this year. On this last hospitalization, her amylase and lipase were normal but the CT of the abdomen showed evidence of pancreatitis and she had clinical symptoms. The patient was subsequently referred as outpatient to the [facility] where she met one day prior to this admission Dr Surya Hampton for has scheduled her for an endoscopic ultrasound on 01/16/2017 further workup of possible autoimmune pancreatitis. The patient had normal IgG 4 levels in November at 84.2 and he is considering the possibility of type II autoimmune pancreatitis. The patient had prior cholecystectomy and there is no history of alcohol dependency and has not been exposed to any new medications. She denied any fevers, chills or any chest pains or shortness of breath. Review of Systems General: Denied fever, chills or unintentional weight loss Neurologic: Denies headaches, double vision or other neurologic complaints Cardiopulmonary: No chest pains, shortness of breath or palpitations Gastrointestinal: See present illness above, has history of reflux Endocrine: No diabetes or thyroid disease Genitourinary: No hematuria, dysuria or frequency Musculoskeletal: History of fibromyalgia Hematologic: No anemia or bleeding tendency Psychiatric: No anxiety or depression Past Medical History Past Medical History: Blood Disorder, Eye Disorder, GERD/Reflux, Pneumonia Additional Past Medical History / Comment(s): pancreatitis, low platelet counts , 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 Pylori History of Any Multi-Drug Resistant Organisms: None Reported Past Surgical History: Appendectomy, Breast Surgery, Cholecystectomy Additional Past Surgical History / Comment(s): uterine fibroid removed, lumpectomy left benign Past Anesthesia/Blood Transfusion Reactions: No Reported Reaction Past Psychological History: No Psychological Hx Reported Smoking Status: Never smoker - Past Family History Father Family Medical History: Cancer Additional Family Medical History / Comment(s): esophageal Mother Family Medical History: CVA/TIA Sister(s) Family Medical History: Cancer Additional Family Medical History / Comment(s): COLON Medications and Allergies Home Medications Medication Instructions Recorded Confirmed Type Loratadine [Claritin] 10 mg PO DAILY 03/20/14 12/24/16 History RABEprazole SODIUM [Aciphex] 20 mg PO DAILY 03/20/14 12/24/16 History Ovcon 35 1 tab PO QAM 04/30/14 12/24/16 History HYDROcodone/APAP 5-325MG [[place] 1 tab PO Q6H PRN 12/24/16 12/24/16 History 5-325] Ibuprofen [Motrin] 600 mg PO Q6HR PRN 12/24/16 12/24/16 History Allergies Allergy/AdvReac Type Severity Reaction Status Date / Time No Known Allergies Allergy Verified 12/24/16 08:32 Physical Exam Vitals: Vital Signs Temp Pulse Resp BP Pulse Ox 12/24/16 10:13 98.3 F 72 18 138/83 100 12/24/16 07:55 97.8 F 82 20 142/89 98 Intake and Output 12/23/16 12/24/16 12/24/16 22:59 06:59 14:59 Other: Voiding Method Toilet Weight 83.5 kg Patient Weight 12/25/16 06:59 Weight 83.5 kg General: Appears stated age, very pleasant in no acute distress Head and neck: Normocephalic and atraumatic, conjunctivae pink and sclerae not icteric, mucous membranes moist and pink. No masses in the neck or tracheal shifts Lungs: Clear to auscultation with no dullness to percussion Heart: Regular, no abnormal sounds, murmurs, gallops or friction rubs Abdomen: Soft. Mild tenderness in epigastric area on deep palpation. No guarding or rebound. Bowel sounds present Extremities: No clubbing, cyanosis or edema Neurologic: Alert and oriented 3, cranial nerves grossly intact. No gross sensory or motor abnormalities Results CBC & Chem 7: 12/24/16 08:20 12/24/16 08:20 Labs: Abnormal Lab Results - Last 24 Hours (Table) 12/24/16 12/24/16 12/24/16 Range/Units 08:20 08:20 08:20 WBC 21.2 H (3.8-10.6) k/uL Neutrophils # 19.4 H (1.3-7.7) k/uL Glucose 103 H (74-99) mg/dL Amylase 684 H* (30-110) U/L Lipase 2921 H (23-300) U/L Urine Appearance Cloudy H (Clear) Urine Protein Trace H (Negative) Urine Ketones 2+ H (Negative) Urine Blood Trace H (Negative) Ur Leukocyte Esterase Trace H (Negative) Ur Squamous Epith Cells 11 H (0-4) /hpf Urine Bacteria Few H (None) /hpf Urine Mucus Rare H (None) /hpf Assessment and Plan Plan: This 51-year-old female has chronic pancreatitis possibly autoimmune in nature despite her normal IgG4. Her workup is in progress and is scheduled for endoscopic ultrasound next month for the purposes of obtaining biopsies. The patient's condition appears to be improving with current supportive measures. I agree with your current management. No suggestion of complicated course and I anticipate that she will continue her recovery and be discharged to have further workup completed as outpatient. I will continue to follow do with interest.
[2016-12-25] MEDS: SODIUM CHLORIDE 0.9% 1,000 ML IV SCH ×2 (06:41→16:22)
--- NOTE | 2016-12-25 06:44 | HP ---
DATE OF ADMISSION: 12/24/2016 PRESENTING COMPLAINT: Abdominal pain, nausea, vomiting. HISTORY OF PRESENTING COMPLAINT: This is a very pleasant 51-year-old patient of Dr. Brower. Chronic stable medical conditions include GERD, uterine fibroids, menorrhagia. Patient has had previous episodes of pancreatitis and autoimmune pancreatitis was ruled out. Patient also had a cholecystectomy. Patient around midnight yesterday started to have severe epigastric pain, nausea, vomiting, found again to have acute pancreatitis. Admitted for the same. Patient recently was at [facility], saw a specialist there and patient is supposed to have endoscopic ultrasound on January 16. The patient's pain controlled with IV pain medications, IV fluids. at the bedside. The patient rarely drinks alcohol. REVIEW OF SYSTEMS: CONSTITUTIONAL: Tired. HEENT: None. RESPIRATORY: None. CARDIOVASCULAR: None. GASTROINTESTINAL: As above. GENITOURINARY: Menorrhagia. DERMATOLOGICAL: None. HEMATOLOGICAL: None. LYMPHATIC: None. PSYCHIATRY: None. NEUROLOGICAL: None. Past history of pancreatitis, GERD, uterine fibroids, menorrhagia. PAST SURGICAL HISTORY: Appendectomy, cholecystectomy, uterine fibroid. SOCIAL HISTORY: No smoking. No alcohol. 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 . Family history of colon cancer. HOME MEDICATIONS: 1. AcipHex 20 mg a day. 2. Ovcon-35 one tablet p.o. daily. 3. Claritin 10 mg p.o. daily. 4. Motrin 600 mg q.6 p.r.n. 5. [place] 5 one tablet q.6 p.r.n. ALLERGIES: None. ON EXAMINATION: VITAL SIGNS ON PRESENTATION: Temperature 97.8, pulse 82, respirations 20, blood pressure 142/89, pulse ox 98% on room air. GENERAL APPEARANCE: Average build, lying in bed, uncomfortable. EYES: Pupils equal. Conjunctivae normal. HENT: Oral cavity normal. NECK: JVD not raised. Mass not palpable. RESPIRATORY: Effort normal. Lungs are clear. CARDIOVASCULAR: First and second sounds normal. No edema. ABDOMEN: Epigastric tenderness. No guarding or rigidity. Liver and spleen not palpable. LYMPHATIC: No lymph node palpable in neck or axillae. PSYCHIATRY: Alert and oriented x3. Mood and affect slightly anxious appearing. NEUROLOGICAL: Pupils equal. Cranial nerves grossly intact. Power and sensation grossly intact. INVESTIGATIONS: White count 21.2, hemoglobin 14.8. Potassium 3.8. Amylase 684, lipase 2921. ASSESSMENT: 1. Acute severe recurrent pancreatitis in whom autoimmune pancreatitis was ruled out previously. Patient is due for endoscopic ultrasound at [facility] on January 16. 2. Leukocytosis from above. 3. Gastroesophageal reflux disease. 4. Chronic uterine fibroids. 5. Menorrhagia from fibroids. PLAN: Patient getting IV fluids. Follow labs closely. Care was discussed with the patient and . GI was consulted.
[2016-12-25] MEDS: ENOXAPARIN 40 MG/0.4 ML SYRINGE SQ SCH (07:50)
[2016-12-25] MEDS: LORATADINE 10 MG TAB PO SCH (07:50)
[2016-12-25] MEDS: PANTOPRAZOLE 40 MG TABLET PO SCH (07:50)
[2016-12-25] MEDS: NORETHINDRONE PO SCH (07:51)
[2016-12-25] MEDS: ETHINYL ESTRADIOL PO SCH (07:51)
[2016-12-25 07:57] LABS: Basophils % (A) 0 %; CH 30.8; CHCM 33.7; Eosinophils # (A) 0.2 k/uL (0-0.7); Eosinophils % (A) 1 %; HCT 40.2 % (34.0-46.0); HDW 2.64; HGB 13.3 gm/dL (11.4-16.0); Luc # (Auto) 0.19; Luc % (Auto) 1; Lymphocytes # (A) 0.9 k/uL (1.0-4.8); Lymphocytes % (A) 5 %; MCH 30.2 pg (25.0-35.0); MCV 91.7 fL (80.0-100.0); Mean Platelet Volume 6.9; Monocytes # (A) 0.5 k/uL (0-1.0); Monocytes % (A) 3 %; Neutrophils # (A) 16.9 k/uL (1.3-7.7); Neutrophils % (A) 90 %; RBC 4.38 m/uL (3.80-5.40); WBC 18.7 k/uL (3.8-10.6)
[2016-12-25 08:20] LABS: ALT 20 U/L (9-52); AST 16 U/L (14-36); Alkaline Phosphatase 83 U/L (38-126); Amylase 134 U/L (30-110); Anion Gap 13 mmol/L; Blood Urea Nitrogen 9 mg/dL (7-17); Calcium 8.4 mg/dL (8.4-10.2); Carbon Dioxide 21 mmol/L (22-30); Chloride 102 mmol/L (98-107); Glucose 82 mg/dL (74-99); Non-African American GFR(MDRD) >60 (>60 ml/min/1.73 sqM); Potassium 3.6 mmol/L (3.5-5.1); Sodium 136 mmol/L (137-145); Total Bilirubin 0.7 mg/dL (0.2-1.3); Total Protein 6.5 g/dL (6.3-8.2)
--- NOTE | 2016-12-25 22:56 | P.PN ---
Progress Note - Text DATE OF SERVICE: 12/25/2016 PRESENTING COMPLAINT: Abdominal pain nausea vomiting INTERVAL HISTORY: This patient was admitted with acute severe recurrent pancreatitis. Today appears comfortable, lying in bed at the bedside. States pain wells is well controlled on current medications. Having less pain and not having to use much pain medication. Asking about starting a diet. REVIEW OF SYSTEMS: Done for constitutional ,cardiovascular, GI, pulmonary with relevant findings as above. CURRENT MEDICATIONS Lovenox, Dilaudid, Claritin, Zofran, Protonix. PHYSICAL EXAM VITAL SIGNS: Temperature 98.3, pulse 96, respiratory rate 14, blood pressure 126/72, oxygen saturation 95% on room air. GENERAL APPEARANCE: . Lying in bed, not in distress. EYES: Pupils equal. Conjunctiva normal. NECK: JVD not raised. Mass not palpable. RESPIRATORY: Respiratory effort normal. Lungs clear to auscultation. CARDIOVASCULAR: First and second sounds normal. No edema. ABDOMEN: Soft. Liver and spleen not palpable. Tenderness to the right upper quadrant and midepigastric area. No mass palpable. PSYCHIATRY: Alert and oriented x3. Mood and affect normal. INVESTIGATIONS: CBC 18.7, sodium 136, amylase 134, lipase 166. ASSESSMENT: Acute severe recurrent pancreatitis in a patient who autoimmune pancreatitis was ruled out previously. Plan for endoscopic ultrasound at [facility] on January 16. Leukocytosis from above. Gastroesophageal reflux disease. Chronic uterine fibroids. Menorrhagia from fibroids. PLAN: Continue IV fluids and pain medication, amylase and lipase have essentially normalized. GI services is in agreement with the current treatment plan. We will advance diet as patient can tolerate and continue to follow labs. Discharge planning in the next 24-48 hours. We'll continue to monitor closely CASING TESTER statement: Patient was seen and examined by nurse practitioner Angela Duenas and all elements of the case discussed with attending Dr. Washington
[2016-12-26] MEDS: SODIUM CHLORIDE 0.9% 1,000 ML IV SCH ×3 (02:01→21:08)
[2016-12-26] MEDS: HYDROmorphone 1 MG/ML 1 ML SYRINGE IV PRN ×5 (04:37→23:09)
[2016-12-26] MEDS: ONDANSETRON 4 MG/2 ML VIAL IVP PRN ×3 (04:37→21:10)
[2016-12-26] MEDS: ENOXAPARIN 40 MG/0.4 ML SYRINGE SQ SCH (08:16)
[2016-12-26] MEDS: PANTOPRAZOLE 40 MG TABLET PO SCH (08:16)
[2016-12-26] MEDS: LORATADINE 10 MG TAB PO SCH (08:16)
[2016-12-26] MEDS: NORETHINDRONE PO SCH (08:16)
[2016-12-26] MEDS: ETHINYL ESTRADIOL PO SCH (08:16)
[2016-12-26 09:06] LABS: Anion Gap 13 mmol/L; Blood Urea Nitrogen 8 mg/dL (7-17); Calcium 8.3 mg/dL (8.4-10.2); Carbon Dioxide 23 mmol/L (22-30); Chloride 99 mmol/L (98-107); Glucose 130 mg/dL (74-99); Non-African American GFR(MDRD) >60 (>60 ml/min/1.73 sqM); Potassium 3.2 mmol/L (3.5-5.1); Sodium 135 mmol/L (137-145)
--- NOTE | 2016-12-26 12:09 | PN ---
DATE OF SERVICE: 12/25/2016 ATTENDING NOTE: This patient was seen and examined by me. I reviewed the note of my nurse practitioner, Ms. Duenas. Discussed, reviewed additional findings as below. This is a patient with presented with acute severe recurrent pancreatitis, abdominal pain is better, up in the hallway, did sit up in lounger, tried some clear liquids. at the bedside. ( ). On examination: ABDOMEN: Soft. Mild tenderness. Lungs are clear. INVESTIGATIONS: Amylase 134, lipase 166. ASSESSMENT: Acute severe recurrent pancreatitis in a patient who previously autoimmune pancreatitis was ruled out, pending further workup at [facility]. PLAN: Patient will be advanced to full liquids. Care was discussed with the patient and . Continue to encourage, see how the patient does. Hopefully can be discharged in 24 hours.
[2016-12-26] MEDS: POTASSIUM CHLORIDE ER 20 MEQ TAB.ER PO SCH ×2 (18:08→21:08)
--- NOTE | 2016-12-26 20:11 | P.PN ---
Progress Note - Text DATE OF SERVICE: 12/26/2016 PRESENTING COMPLAINT: Abdominal pain nausea vomiting INTERVAL HISTORY: This patient was admitted with acute severe recurrent pancreatitis. Today appears uncomfortable complaining of more acute abdominal pain than yesterday as well as epigastric pain, lying in bed at the bedside. Has tried not to take IV pain medications but just had a dose. Has some difficulty tolerating her diet today. Ambulatory in the room and [address]. REVIEW OF SYSTEMS: Done for constitutional ,cardiovascular, GI, pulmonary with relevant findings as above. CURRENT MEDICATIONS Lovenox, Dilaudid, Claritin, Zofran, Protonix. PHYSICAL EXAM VITAL SIGNS: Temperature 97.1, pulse 87, respiratory rate 18, blood pressure 126/78, oxygen saturation 97% on room air. GENERAL APPEARANCE: . Lying in bed, uncomfortable. EYES: Pupils equal. Conjunctiva normal. NECK: JVD not raised. Mass not palpable. RESPIRATORY: Respiratory effort normal. Lungs clear to auscultation. CARDIOVASCULAR: First and second sounds normal. No edema. ABDOMEN: Soft. Liver and spleen not palpable. Tenderness to the right upper quadrant and midepigastric area. No mass palpable. PSYCHIATRY: Alert and oriented x3. Mood and affect normal. INVESTIGATIONS: Sodium 135, potassium 3.2 Accu-Cheks noted. ASSESSMENT: Acute severe recurrent pancreatitis in a patient who autoimmune pancreatitis was ruled out previously. Plan for endoscopic ultrasound at [facility] on January 16. Leukocytosis from above. Gastroesophageal reflux disease. Chronic uterine fibroids. Menorrhagia from fibroids. PLAN: Continue IV fluids and pain medication, awaiting today's amylase and lipase values. GI services is in agreement with the current treatment plan. We will advance diet as patient can tolerate and continue to follow labs. Discharge planning in the next 24-48 hours. We'll continue to monitor closely BUSINESS PROCESS ARCHITECT statement: Patient was seen and examined by nurse practitioner Anegla Duenas and all elements of the case discussed with attending Dr. Washington
[2016-12-26 21:12] LABS: Amylase <30 U/L (30-110); Potassium 3.3 mmol/L (3.5-5.1)
[2016-12-27 01:53] VITALS: PULSE 80
[2016-12-27] MEDS: HYDROmorphone 1 MG/ML 1 ML SYRINGE IV PRN ×2 (02:46→06:49)
[2016-12-27] MEDS: ONDANSETRON 4 MG/2 ML VIAL IVP PRN (06:51)
[2016-12-27 07:36] VITALS: BP 120/71; RESP 16; TEMP 97.3
[2016-12-27] MEDS: ETHINYL ESTRADIOL PO SCH (07:40)
[2016-12-27] MEDS: SODIUM CHLORIDE 0.9% 1,000 ML IV SCH (07:40)
[2016-12-27] MEDS: ENOXAPARIN 40 MG/0.4 ML SYRINGE SQ SCH (07:40)
[2016-12-27] MEDS: PANTOPRAZOLE 40 MG TABLET PO SCH (07:40)
[2016-12-27] MEDS: NORETHINDRONE PO SCH (07:40)
[2016-12-27] MEDS: LORATADINE 10 MG TAB PO SCH (07:40)
[2016-12-27 08:27] LABS: Basophils % (A) 0 %; CH 30.6; CHCM 33.6; Eosinophils # (A) 0.4 k/uL (0-0.7); Eosinophils % (A) 3 %; HCT 38.9 % (34.0-46.0); HDW 2.87; HGB 12.6 gm/dL (11.4-16.0); Luc # (Auto) 0.23; Luc % (Auto) 2; Lymphocytes # (A) 1.3 k/uL (1.0-4.8); Lymphocytes % (A) 11 %; MCH 29.5 pg (25.0-35.0); MCHC 32.3 g/dL (31.0-37.0); MCV 91.4 fL (80.0-100.0); Mean Platelet Volume 7.1; Monocytes # (A) 0.6 k/uL (0-1.0); Monocytes % (A) 5 %; Neutrophils # (A) 8.8 k/uL (1.3-7.7); Neutrophils % (A) 78 %; RBC 4.25 m/uL (3.80-5.40); RDW 14.1 % (11.5-15.5); WBC 11.3 k/uL (3.8-10.6); WBC (Perox) 11.65
[2016-12-27 08:43] LABS: Amylase <30 U/L (30-110); Anion Gap 9 mmol/L; Blood Urea Nitrogen 6 mg/dL (7-17); Calcium 8.4 mg/dL (8.4-10.2); Carbon Dioxide 26 mmol/L (22-30); Chloride 102 mmol/L (98-107); Glucose 116 mg/dL (74-99); Non-African American GFR(MDRD) >60 (>60 ml/min/1.73 sqM); Potassium 3.6 mmol/L (3.5-5.1); Sodium 137 mmol/L (137-145)
--- NOTE | 2016-12-27 11:20 | P.PN ---
Subjective Principal diagnosis: Pancreatitis 51 year old female with recurrent pancreatitis felt to be possibly autoimmune in nature. Scheduled to be evaluated a tertiary center [facility] next month for EUS. Feels better today. Anticipating discharge. Afebrile. Lipase amylase within normal limits. Objective - Vital Signs Vital signs: Vital Signs Temp 97.3 F L 12/27/16 07:00 Pulse 80 12/27/16 07:00 Resp 16 12/27/16 07:00 BP 120/71 12/27/16 07:00 Pulse Ox 95 12/27/16 07:00 Intake & Output 12/26/16 12/27/16 12/27/16 18:59 06:59 18:59 Intake Total 250 925 Balance 250 925 Intake: Oral 250 925 Other: Voiding Method Toilet # Voids 3 2 - Exam General appearance: The patient is alert, oriented, in no acute distress. HET: Head is normocephalic and atraumatic. Pupils are equal and reactive. Oropharynx is clear without lesions. Neck: Supple without lymphadenopathy. Trachea midline. Heart: S1 S2. Regular rate and rhythm. Lungs: No crackles or wheezes are heard. Abdomen: Soft, mild midepigastric tenderness, nondistended with bowel sounds. No peritoneal signs. No palpable organomegaly or masses. Extremities: Normal skin color and turgor. No cyanosis, rash, ulceration, clubbing, or edema. Radial and pedal pulses are 2/4 bilaterally. Neurological: No focal deficits. Strength and sensation are grossly intact. - Labs CBC & Chem 7: 12/27/16 07:54 12/27/16 07:54 Labs: Abnormal Lab Results - Last 24 Hours (Table) 12/26/16 12/27/16 12/27/16 Range/Units 20:35 07:54 07:54 WBC 11.3 H (3.8-10.6) k/uL Neutrophils # 8.8 H (1.3-7.7) k/uL Potassium 3.3 L (3.5-5.1) mmol/L BUN 6 L (7-17) mg/dL Glucose 116 H (74-99) mg/dL Amylase <30 L <30 L (30-110) U/L Assessment and Plan (1) Acute pancreatitis Narrative/Plan: Possible autoimmune Status: Acute Plan: 1. Discharge per medicine. No further workup at this time. Follow up at [facility] January 16 for EUS. Assessment and plan a care discussed with Dr. Berman
--- NOTE | 2016-12-27 16:19 | PN ---
DATE OF SERVICE: 12/26/2016 ATTENDING NOTE: This patient was seen and examined by me on 12/26/16. I reviewed the note of my nurse practitioner Ms. Duenas, discussed and reviewed. Additional findings below. Patient was admitted with acute severe recurrent pancreatitis; had been doing well, but today patient's feels more abdominal discomfort and nausea. Patient was put on a full-liquid diet. is at the bedside. On examination, abdomen is tender. Patient not feeling well. ASSESSMENT: Acute recurrent pancreatitis. When I saw the patient, the patient's pancreatic labs were pending. I told the patient to back off on the diet. Will have GI reevaluate the patient and hold off the discharge.
--- NOTE | 2016-12-29 15:54 | DS ---
DATE OF ADMISSION: 12/24/2016 DATE OF DISCHARGE: 12/27/2016 FINAL DIAGNOSES: 1. Acute recurrent pancreatitis rule out autoimmune pancreatitis. 2. Plan for endoscopic ultrasound at [facility]. 3. Leukocytosis. 4. History of gastroesophageal reflux disease. 5. Chronic uterine fibroids. 6. Menorrhagia from fibroids. DISCHARGE DISPOSITION: The patient will be discharged in a stable condition with guarded prognosis. HISTORY OF PRESENT ILLNESS: This 51 -year-old woman was admitted with features of acute severe pancreatitis, recurrent in nature. The patient apparently had an evaluation at [facility] including endoscopic ultrasound and possible biopsy. The patient improved significantly. On exam vital signs stable. CARDIOVASCULAR: S1, S2. Abdomen soft. Central nervous system: No focal deficits. Amylase, lipase levels were normalized at less than 30 and 58. The patient will be discharged in stable condition with guarded prognosis with the following advice and medications: 1. Diet is cardiac low-fat. 2. Follow with Dr. Brower in two to three days. 3. Follow up with [facility] as recommended. 4. Hydrocodone 5 mg q.6 p.r.n. 5. Claritin 10 mg daily. 6. Zofran 4 mg q.8 p.r.n. 7. Ovcon 1 tablet in the morning. 8. Protonix 40 mg daily.
== END 2016-12-27 14:12 | disposition home or self-care (01) | DRG 440 ==
LOC: EC 07:53 → 4MS4W 09:29
PROVIDERS: ADMIT Hospitalist; ATTEND Hospitalist
DX: K85.90 Acute pancreatitis without necrosis or infection, unspecified (principal); D25.9 Leiomyoma of uterus, unspecified; K21.9 Gastro-esophageal reflux disease without esophagitis; K86.1 Other chronic pancreatitis; N92.0 Excessive and frequent menstruation with regular cycle; Z79.899 Other long term (current) drug therapy
CPT/HCPCS: 36415; 74020; 76705; 80048; 80053; 81001; 82150; 83690; 84132; 85025; 87086; 96361; 96374; 96375; 99285

== ENCOUNTER 2017-01-18 05:11 | Inpatient (IN) | payer BC ==
[2017-01-18] MEDS ORDERED: ONDANSETRON 4 MG/2 ML VIAL IVP STA ×2 (05:37→06:25)
[2017-01-18 05:40] LABS: Basophils % (A) 0 %; CH 29.4; CHCM 34.3; Eosinophils # (A) 0.3 k/uL (0-0.7); Eosinophils % (A) 2 %; HCT 40.5 % (34.0-46.0); HDW 2.92; HGB 14.1 gm/dL (11.4-16.0); Luc # (Auto) 0.18; Luc % (Auto) 1; Lymphocytes # (A) 1.5 k/uL (1.0-4.8); Lymphocytes % (A) 8 %; MCH 29.9 pg (25.0-35.0); MCHC 34.8 g/dL (31.0-37.0); Mean Platelet Volume 7.6; Monocytes # (A) 0.7 k/uL (0-1.0); Monocytes % (A) 4 %; Neutrophils % (A) 85 %; RBC 4.72 m/uL (3.80-5.40); RDW 14.2 % (11.5-15.5); WBC 17.6 k/uL (3.8-10.6); WBC (Perox) 18.09
[2017-01-18 05:42] LABS: MCV 85.9 fL (80.0-100.0)
[2017-01-18 05:49] LABS: Appearance,Urine Clear (Clear); Bacteria,Urine Occasional /hpf; Bilirubin,Urine Negative (Negative); Glucose,Urine (UA) Negative (Negative); Ketones,Urine 2+ (Negative); Leukocyte Esterase,Urine Negative (Negative); Mucus,Urine Rare /hpf; Nitrite,Urine Negative (Negative); PH, Urine 5.5 (5.0-8.0); Particle Count 3890; Protein,Urine Negative (Negative); RBC,Urine 1 /hpf (0-5); Specific Gravity,Urine 1.012 (1.001-1.035); Squamous Epithelial Cell,Urine 3 /hpf (0-4); UA Billing (MACRO vs. MICRO) MICRO; Urobilinogen,Urine <2.0 mg/dL (<2.0); WBC,Urine 1 /hpf (0-5)
[2017-01-18 06:00] LABS: ALT 26 U/L (9-52); AST 18 U/L (14-36); Alkaline Phosphatase 81 U/L (38-126); Anion Gap 12 mmol/L; Blood Urea Nitrogen 8 mg/dL (7-17); Calcium 9.2 mg/dL (8.4-10.2); Carbon Dioxide 24 mmol/L (22-30); Chloride 103 mmol/L (98-107); Glucose 95 mg/dL (74-99); Non-African American GFR(MDRD) >60 (>60 ml/min/1.73 sqM); Potassium 3.8 mmol/L (3.5-5.1); Sodium 139 mmol/L (137-145)
[2017-01-18 06:07] LABS: Amylase 543 U/L (30-110)
[2017-01-18] MEDS ORDERED: SODIUM CHLORIDE 0.9% 500 ML IV STA (06:25)
[2017-01-18] MEDS ORDERED: HYDROmorphone 1 MG/ML 1 ML SYRINGE IVP STA (06:25)
--- NOTE | 2017-01-18 06:32 | ED ---
Abdominal Pain HPI - General Chief Complaint: Abdominal Pain Stated Complaint: ABD PAIN Time Seen by Provider: 01/18/17 05:22 Source: patient Mode of arrival: wheelchair Limitations: no limitations - History of Present Illness Initial Comments: This patient is a 51-year-old woman with history of previous pancreatitis who presents with pain that she states similar previous episodes. The pain is located in the epigastric area, aching, severe intensity. She has not noted any relieving factors or worsening. she did try her prescription analgesics without much relief. She has also had some dry heaves tonight. Patient states she has not had a bowel movement since Sunday but she has not had much to eat either. She has not noted any change in urination. No vaginal discharge. The patient did have an endoscopic ultrasound with pancreas biopsy performed on January 16 at the [facility]. Complaint: abdominal pain -: hour(s) Location: epigastric Radiation: none Migration to: no migration Severity: severe Quality: aching Consistency: constant Improves With: nothing Worsens With: nothing Associated Symptoms: nausea, vomiting Treatments Prior to Arrival: prescription analgesics - Related Data Home Medications Medication Instructions Recorded Confirmed Loratadine [Claritin] 10 mg PO DAILY 03/20/14 01/18/17 Ovcon 35 1 tab PO QAM 04/30/14 01/18/17 Previous Rx's Medication Instructions Recorded HYDROcodone/APAP 5-325MG [Harris 1 tab PO Q6H PRN #20 12/27/16 5-325] Ondansetron [Zofran] 4 mg PO Q8HR PRN #30 tab 12/27/16 Pantoprazole [Protonix] 40 mg PO AC-BRKFST #30 tab 12/27/16 Allergies Allergy/AdvReac Type Severity Reaction Status Date / Time No Known Allergies Allergy Verified 01/18/17 05:17 Review of Systems ROS Statement: Those systems with pertinent positive or pertinent negative responses have been documented in the HPI. ROS Other: All systems not noted in ROS Statement are negative. Constitutional: Denies: fever, chills Respiratory: Denies: cough, dyspnea Cardiovascular: Denies: chest pain, palpitations, edema, syncope Gastrointestinal: Reports: as per HPI, abdominal pain, nausea, vomiting, constipation. Denies: diarrhea, melena, hematochezia Genitourinary: Denies: dysuria, frequency, hematuria, discharge Musculoskeletal: Denies: back pain Skin: Denies: rash Neurological: Denies: headache Past Medical History Past Medical History: Blood Disorder, Eye Disorder, GERD/Reflux, Pneumonia Additional Past Medical History / Comment(s): pancreatitis, low platelet counts , 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 Pylori History of Any Multi-Drug Resistant Organisms: None Reported Past Surgical History: Appendectomy, Breast Surgery, Cholecystectomy Additional Past Surgical History / Comment(s): uterine fibroid removed, lumpectomy left benign Past Anesthesia/Blood Transfusion Reactions: No Reported Reaction Past Psychological History: No Psychological Hx Reported Smoking Status: Never smoker Past Alcohol Use History: None Reported Past Drug Use History: None Reported - Past Family History Father Family Medical History: Cancer Additional Family Medical History / Comment(s): esophageal Mother Family Medical History: CVA/TIA Sister(s) Family Medical History: Cancer Additional Family Medical History / Comment(s): COLON General Exam Limitations: no limitations General appearance: alert, in no apparent distress Head exam: Present: atraumatic, normocephalic Eye exam: Present: normal appearance. Absent: scleral icterus, conjunctival injection Respiratory exam: Present: normal lung sounds bilaterally. Absent: respiratory distress, wheezes, rales, rhonchi, stridor Cardiovascular Exam: Present: regular rate, normal rhythm, normal heart sounds. Absent: systolic murmur, diastolic murmur, rubs, gallop GI/Abdominal exam: Present: soft, tenderness, normal bowel sounds. Absent: distended, guarding, rebound, rigid, mass, pulsatile mass, hernia Extremities exam: Present: normal inspection, normal capillary refill. Absent: pedal edema, calf tenderness Back exam: Present: normal inspection. Absent: CVA tenderness (R), CVA tenderness (L) Skin exam: Present: warm, dry, intact, normal color. Absent: rash Course Vital Signs 01/18/17 01/18/17 05:15 06:31 Temperature 98.7 F Pulse Rate 89 71 Respiratory 18 17 Rate Blood Pressure 139/87 128/81 O2 Sat by Pulse 99 Oximetry Medical Decision Making - Lab Data Result diagrams: 01/18/17 05:29 01/18/17 05:29 Lab Results 01/18/17 01/18/17 01/18/17 Range/Units 05:29 05:29 05:30 WBC 17.6 H (3.8-10.6) k/uL RBC 4.72 (3.80-5.40) m/uL Hgb 14.1 (11.4-16.0) gm/dL Hct 40.5 (34.0-46.0) % MCV 85.9 D (80.0-100.0) fL MCH 29.9 (25.0-35.0) pg MCHC 34.8 (31.0-37.0) g/dL RDW 14.2 (11.5-15.5) % Plt Count 167 (150-450) k/uL Neutrophils % 85 % Lymphocytes % 8 % Monocytes % 4 % Eosinophils % 2 % Basophils % 0 % Neutrophils # 15.0 H (1.3-7.7) k/uL Lymphocytes # 1.5 (1.0-4.8) k/uL Monocytes # 0.7 (0-1.0) k/uL Eosinophils # 0.3 (0-0.7) k/uL Basophils # 0.0 (0-0.2) k/uL Sodium 139 (137-145) mmol/L Potassium 3.8 (3.5-5.1) mmol/L Chloride 103 (98-107) mmol/L Carbon Dioxide 24 (22-30) mmol/L Anion Gap 12 mmol/L BUN 8 (7-17) mg/dL Creatinine 0.90 (0.52-1.04) mg/dL Est GFR (MDRD) Af Amer >60 (>60 ml/min/1.73 sqM) Est GFR (MDRD) Non-Af >60 (>60 ml/min/1.73 sqM) Glucose 95 (74-99) mg/dL Calcium 9.2 (8.4-10.2) mg/dL Total Bilirubin 1.0 (0.2-1.3) mg/dL AST 18 (14-36) U/L ALT 26 (9-52) U/L Alkaline Phosphatase 81 (38-126) U/L Total Protein 7.0 (6.3-8.2) g/dL Albumin 3.9 (3.5-5.0) g/dL Amylase 543 H* (30-110) U/L Lipase 3836 H (23-300) U/L Urine Color Yellow Urine Appearance Clear (Clear) Urine pH 5.5 (5.0-8.0) Ur Specific [place] 1.012 (1.001-1.035) Urine Protein Negative (Negative) Urine Glucose (UA) Negative (Negative) Urine Ketones 2+ H (Negative) Urine Blood Trace H (Negative) Urine Nitrite Negative (Negative) Urine Bilirubin Negative (Negative) Urine Urobilinogen <2.0 (<2.0) mg/dL Ur Leukocyte Esterase Negative (Negative) Urine RBC 1 (0-5) /hpf Urine WBC 1 (0-5) /hpf Ur Squamous Epith Cells 3 (0-4) /hpf Urine Bacteria Occasional H (None) /hpf Urine Mucus Rare H (None) /hpf Disposition Clinical Impression: Acute pancreatitis Disposition: ADMITTED IP TO THIS HOSP Condition: Fair Referrals: Mina Brower MD [Primary Care Provider] - 1-2 days
[2017-01-18] MEDS ORDERED: NALOXONE 0.4 MG/ML 1 ML VIAL IV PRN (06:45)
[2017-01-18] MEDS ORDERED: HYDROcodone/APAP 5-325MG 1 EACH TAB PO PRN (06:45)
[2017-01-18] MEDS ORDERED: ONDANSETRON 4 MG/2 ML VIAL IVP PRN (06:45)
[2017-01-18] MEDS: SODIUM CHLORIDE 0.9% 1,000 ML IV SCH ×2 (07:57→14:40)
[2017-01-18] MEDS ORDERED: OVCON PO SCH (09:00)
[2017-01-18] MEDS: PANTOPRAZOLE 40 MG TABLET PO SCH (09:39)
[2017-01-18] MEDS: FAMOTIDINE 20 MG TAB PO SCH ×2 (09:39→21:05)
[2017-01-18] MEDS: LORATADINE 10 MG TAB PO SCH (09:39)
[2017-01-18] MEDS: ENOXAPARIN 40 MG/0.4 ML SYRINGE SQ SCH (09:40)
[2017-01-18] MEDS: HYDROmorphone 1 MG/ML 1 ML SYRINGE IV PRN ×5 (09:40→22:44)
[2017-01-18 09:52] VITALS: BMI 26.6
--- NOTE | 2017-01-18 10:24 | P.CONS ---
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 Recently evaluated at [facility] on 01/16/2017 status post EUS biopsies pending. White count 17.6. Hemoglobin 14.1. Hematocrit 40.5. BUN 8. Creatinine 0.9. CO2 24. Calcium 9.2. LFTs normal. Amylase 543. Lipase 3836. Denies fever chills hematemesis hematochezia melena. Review of Systems General: Denied fever, chills or unintentional weight loss Neurologic: Denies headaches, double vision or other neurologic complaints Cardiopulmonary: No chest pains, shortness of breath or palpitations Gastrointestinal: See present illness above, has history of reflux Endocrine: No diabetes or thyroid disease Genitourinary: No hematuria, dysuria or frequency Musculoskeletal: History of fibromyalgia Hematologic: No anemia or bleeding tendency Psychiatric: No anxiety or depression All systems: negative (The HPI) Past Medical History Past Medical History: Blood Disorder, Eye Disorder, GERD/Reflux, Pneumonia Additional Past Medical History / Comment(s): pancreatitis, low platelet counts , 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 Pylori History of Any Multi-Drug Resistant Organisms: None Reported Past Surgical History: Appendectomy, Breast Surgery, Cholecystectomy Additional Past Surgical History / Comment(s): uterine fibroid removed, lumpectomy left benign Past Anesthesia/Blood Transfusion Reactions: No Reported Reaction Past Psychological History: No Psychological Hx Reported Smoking Status: Never smoker Past Alcohol Use History: None Reported Past Drug Use History: None Reported - Past Family History Father Family Medical History: Cancer Additional Family Medical History / Comment(s): esophageal Mother Family Medical History: CVA/TIA Sister(s) Family Medical History: Cancer Additional Family Medical History / Comment(s): COLON Medications and Allergies Home Medications Medication Instructions Recorded Confirmed Type Loratadine [Claritin] 10 mg PO DAILY 03/20/14 01/18/17 History Ovcon 35 1 tab PO QAM 04/30/14 01/18/17 History Ascorbic Acid [Vitamin C] 500 mg PO DAILY 01/18/17 01/18/17 History Cholecalciferol [Vitamin D3] 1,000 unit PO DAILY 01/18/17 01/18/17 History Curcumin 1 tab PO DAILY 01/18/17 01/18/17 History Cyanocobalamin [Vitamin B-12] 500 mcg PO DAILY 01/18/17 01/18/17 History Grape Seed Oil 1 cap PO DAILY 01/18/17 01/18/17 History RABEprazole SODIUM [Aciphex] 20 mg PO DAILY 01/18/17 01/18/17 History Allergies Allergy/AdvReac Type Severity Reaction Status Date / Time No Known Allergies Allergy Verified 01/18/17 07:16 Physical Exam Vitals: Vital Signs Temp Pulse Pulse Resp BP BP Pulse Ox 01/18/17 08:01 98.3 F 73 16 139/81 93 L 01/18/17 06:31 71 17 128/81 01/18/17 05:15 98.7 F 89 18 139/87 99 Intake and Output 01/17/17 01/18/17 01/18/17 22:59 06:59 14:59 Other: Weight 79.379 kg 79.379 kg Patient Weight 01/19/17 06:59 Weight 79.379 kg NGeneral appearance: The patient is alert, oriented, in no acute distress. HET: Head is normocephalic and atraumatic. Pupils are equal and reactive. Oropharynx is clear without lesions. Neck: Supple without lymphadenopathy. Trachea midline. Heart: S1 S2. Regular rate and rhythm. Lungs: No crackles or wheezes are heard. Abdomen: Soft, midepigastric tenderness, nondistended with bowel sounds. No peritoneal signs. No palpable organomegaly or masses. Extremities: Normal skin color and turgor. No cyanosis, rash, ulceration, clubbing, or edema. Radial and pedal pulses are 2/4 bilaterally. Neurological: No focal deficits. 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 Status: Acute Plan: 1. Symptomatic and supportive measures. We'll follow with you. 2. Ultrasound abdomen rule out pseudocyst. Thank you for this kind referral and the opportunity to participate in the care of your patient. This consultation was discussed with Dr. Berman. The impression and plan of care have been directed as dictated.
--- NOTE | 2017-01-18 11:49 | US ---
EXAMINATION TYPE: US abdomen limited DATE OF EXAM: 01/18/2017 COMPARISON: Gallbladder ultrasound December 24, 2016. CT abdomen and pelvis November 12, 2016. CLINICAL HISTORY: pancreatitis r/o pseudocyst. Pancreatitis, epigastric pain, nausea and vomiting, ch olecystectomy EXAM MEASUREMENTS: Liver Length: 16.7 cm Gallbladder Wall: Surgically absent CBD: 0.5 cm Right Kidney: 10.1 x 3.9 x 4.3 cm Pancreas: tail obscured by overlying bowel Liver: heterogeneous Gallbladder: Surgically absent Evidence for sonographic Sanches's sign: no CBD: appears wnl Right Kidney: no evidence of hydronephrosis or mass Visualized portion of pancreas shows no worrisome mass or ductal dilatation. A 1.2 cm low dense lesio n probable simple cyst left hepatic dome on CT is not clearly seen on ultrasound. Gallbladder is surg ically absent. IMPRESSION: Visualized portion of pancreas is unremarkable on ultrasound.
[2017-01-18] MEDS: METOCLOPRAMIDE 5 MG/ML 2 ML VIAL IVP PRN ×2 (14:39→21:05)
--- NOTE | 2017-01-18 18:04 | P.HPIM ---
<Angela Duenas - Last Filed: 01/18/17 17:39> History of Present Illness H&P Date: 01/18/17 Chief Complaint: Abdominal pain, nausea This is a very pleasant 51-year-old female patient of Dr. Brower. Chronic stable medical conditions include GERD, uterine fibroids, menorrhagia. Patient has had previous episodes of pancreatitis.last was about a month ago. Patient presented to the emergency department with acute abdominal pain for the past day with elevated pancreatic enzymes. Patient was recently evaluated at [facility] on 01/16/2017 status post UES biopsies are pending to rule out type II autoimmune pancreatitis. Review of Systems GEN.: [None] EYES: [None] HEENT: [None] NECK: [None] RESPIRATORY: [None] CARDIOVASCULAR: [None] GASTROINTESTINAL: [Nausea vomiting abdominal pain GENITOURINARY: [None] MUSCULOSKELETAL: [None] LYMPHATICS: [None] HEMATOLOGICAL: [None] PSYCHIATRY: [None] NEUROLOGICAL: [None] Past Medical History Past Medical History: Blood Disorder, Eye Disorder, GERD/Reflux, Pneumonia Additional Past Medical History / Comment(s): pancreatitis, low platelet counts , 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 Pylori History of Any Multi-Drug Resistant Organisms: None Reported Past Surgical History: Appendectomy, Breast Surgery, Cholecystectomy Additional Past Surgical History / Comment(s): uterine fibroid removed, lumpectomy left benign Past Anesthesia/Blood Transfusion Reactions: No Reported Reaction Past Psychological History: No Psychological Hx Reported Smoking Status: Never smoker Past Alcohol Use History: None Reported Past Drug Use History: None Reported - Past Family History Father Family Medical History: Cancer Additional Family Medical History / Comment(s): esophageal Mother Family Medical History: CVA/TIA Sister(s) Family Medical History: Cancer Additional Family Medical History / Comment(s): COLON Medications and Allergies Home Medications Medication Instructions Recorded Confirmed Type Loratadine [Claritin] 10 mg PO DAILY 03/20/14 01/18/17 History Ovcon 35 1 tab PO QAM 04/30/14 01/18/17 History Ascorbic Acid [Vitamin C] 500 mg PO DAILY 01/18/17 01/18/17 History Cholecalciferol [Vitamin D3] 1,000 unit PO DAILY 01/18/17 01/18/17 History Curcumin 1 tab PO DAILY 01/18/17 01/18/17 History Cyanocobalamin [Vitamin B-12] 500 mcg PO DAILY 01/18/17 01/18/17 History Grape Seed Oil 1 cap PO DAILY 01/18/17 01/18/17 History RABEprazole SODIUM [Aciphex] 20 mg PO DAILY 01/18/17 01/18/17 History Allergies Allergy/AdvReac Type Severity Reaction Status Date / Time No Known Allergies Allergy Verified 01/18/17 07:16 Physical Exam Vitals: Vital Signs Temp Pulse Pulse Resp BP BP Pulse Ox 01/18/17 16:00 87 18 01/18/17 15:00 99.0 F 87 18 137/83 96 01/18/17 08:01 98.3 F 73 16 139/81 93 L 01/18/17 06:31 71 17 128/81 01/18/17 05:15 98.7 F 89 18 139/87 99 Intake and Output 01/18/17 01/18/17 01/18/17 06:59 14:59 22:59 Other: # Voids 1 1 Weight 79.379 kg 79.379 kg 79.379 kg Patient Weight 01/19/17 06:59 Weight 79.379 kg VITAL SIGNS: [Temperature 98.3, pulse 73, respiratory rate 16, blood pressure 139/81, oxygen saturation 93% on room air. BMI noted] GENERAL: [Average built, sitting up, uncomfortable ]. EYES: [Pupils equal. Conjunctiva rudolph]l. HEENT: [External appearance of nose and ears normal, oral cavity grossly normal] . NECK: [JVD not raised; masses not palpable]. HEART: [First and second heart sounds are normal; no edema]. LUNGS:[ Respiratory rate normal; clear to auscultation]. ABDOMEN: [Soft, tenderness to mid epigastric area and right upper quadrant and , liver spleen not palpable, no masses palpable]. LYMPHATICS: [No lymph nodes palpable in the axilla and neck]. PSYCH: [Alert and oriented x3; mood and affect rudolph]l. NEUROLOGICAL: [Cranial nerves grossly intact; no facial asymmetry, power and sensation grossly intact]. Results CBC & Chem 7: 01/18/17 05:29 01/18/17 05:29 Labs: Abnormal Lab Results - Last 24 Hours (Table) 01/18/17 01/18/1701/18/17 Range/Units 05:29 05:29 05:30 WBC 17.6 H (3.8-10.6) k/uL Neutrophils # 15.0 H (1.3-7.7) k/uL Amylase 543 H* (30-110) U/L Lipase 3836 H (23-300) U/L Urine Ketones 2+ H (Negative) Urine Blood Trace H (Negative) Urine Bacteria Occasional H (None) /hpf Urine Mucus Rare H (None) /hpf Thrombosis Risk Factor Assmnt - DVT/VTE Prophylaxis DVT/VTE Prophylaxis: Contraindicated - See note - Choose All That Apply Each Factor Represents 1 point: Age 41-60 years, Obesity (BMI >25) Thrombosis Risk Factor Assessment Total Risk Factor Score: 2 Thrombosis Risk Factor Assessment Level: Low Risk Assessment and Plan Plan: ASSESSMENT: -Acute severe recurrent pancreatitis in a patient where autoimmune pancreatitis was ruled out previously, recent [facility] evaluation 01/16/2017 -Leukocytosis secondary to #1 -Gastroesophageal reflux disease -Chronic uterine fibroids -Menorrhagia from fibroids. PLAN: Continue IV pain medication, IV fluids, nothing by mouth status. Abdominal ultrasound to rule out pseudocyst. Plan of care discussed with patient the bedside she is in agreement. We'll continue to follow closely <Odilon Washington - Last Filed: 01/18/17 23:31> Physical Exam Vitals: Vital Signs Temp Pulse Pulse Resp BP BP Pulse Ox 01/18/17 16:00 87 18 01/18/17 15:00 99.0 F 87 18 137/83 96 01/18/17 08:01 98.3 F 73 16 139/81 93 L 01/18/17 06:31 71 17 128/81 01/18/17 05:15 98.7 F 89 18 139/87 99 Intake and Output 01/18/17 01/18/17 01/19/17 14:59 22:59 06:59 Other: # Voids 1 1 Weight 79.379 kg 79.379 kg Patient Weight 01/19/17 06:59 Weight 79.379 kg Results CBC & Chem 7: 01/18/17 05:29 01/18/17 05:29 Labs: Abnormal Lab Results - Last 24 Hours (Table) 07/13/17 07/13/17 07/13/17 Range/Units 05:29 05:29 05:30 WBC 17.6 H (3.8-10.6) k/uL Neutrophils # 15.0 H (1.3-7.7) k/uL Amylase 543 H* (30-110) U/L Lipase 3836 H (23-300) U/L Urine Ketones 2+ H (Negative) Urine Blood Trace H (Negative) Urine Bacteria Occasional H (None) /hpf Urine Mucus Rare H (None) /hpf Assessment and Plan Plan: Attending note: Date of service-01/18/2017 This patient was seen and examined by me. Reviewed the H&P off bypatient was Henrique. Discussed additional finding as below This is a patient with recurrent pancreatitis just had ultrasonic ultrasound endoscopy of the pancreas at [facility]. Following that started with increasing abdominal pain nausea vomiting. Found to have acute pancreatitis On examination Afebrile, pulse 83, respiration 18, blood pressure 139/81, pulse of 92% room air Abdomen epigastric tenderness no guarding or rigidity, psych AO 3 Investigations Amylase 543, lipase 3836 Assessment and plan: -Acute pancreatitis following endoscopic ultrasound of the pancreas in a patient known to have recurrent peritonitis -Leukocytosis secondary to #1 GERD Chronic uterine fibroids causing menorrhagia Plan patient made nothing by mouth. Getting IV fluids, pain control and place. Care was discussed with patient.
[2017-01-18] MEDS: ONDANSETRON 4 MG/2 ML VIAL IVP PRN (18:33)
[2017-01-19] MEDS: SODIUM CHLORIDE 0.9% 1,000 ML IV SCH ×3 (00:11→18:11)
[2017-01-19] MEDS: ONDANSETRON 4 MG/2 ML VIAL IVP PRN ×4 (00:11→21:18)
[2017-01-19] MEDS: METOCLOPRAMIDE 5 MG/ML 2 ML VIAL IVP PRN ×3 (04:55→18:06)
[2017-01-19] MEDS: HYDROmorphone 1 MG/ML 1 ML SYRINGE IV PRN ×6 (04:56→21:18)
[2017-01-19] MEDS: FAMOTIDINE 20 MG TAB PO SCH ×2 (08:11→21:18)
[2017-01-19] MEDS: PANTOPRAZOLE 40 MG TABLET PO SCH (08:11)
[2017-01-19] MEDS: ENOXAPARIN 40 MG/0.4 ML SYRINGE SQ SCH (08:12)
[2017-01-19] MEDS: LORATADINE 10 MG TAB PO SCH (08:12)
--- NOTE | 2017-01-19 10:01 | P.PN ---
Subjective Principal diagnosis: Pancreatitis 51-year-old female admitted with acute on chronic pancreatitis possible type II autoimmune. Recent EUS 01/16/2017 at [facility]. Still reports abdominal pain somewhat improved. Unable to tolerate clear liquids without increased nausea or emesis. Afebrile. Lipase improved 832. Objective - Vital Signs Vital signs: Vital Signs Temp 97.9 F 01/19/17 07:00 Pulse 83 01/19/17 07:00 Resp 16 01/19/17 07:00 BP 134/79 01/19/17 07:00 Pulse Ox 96 01/18/17 23:00 Intake & Output 01/18/17 01/19/17 01/19/17 18:59 06:59 18:59 Weight 79.379 kg Other: # Voids 1 1 - Exam General appearance: The patient is alert, oriented, in no acute distress. HET: Head is normocephalic and atraumatic. Pupils are equal and reactive. Oropharynx is clear without lesions. Neck: Supple without lymphadenopathy. Trachea midline. Heart: S1 S2. Regular rate and rhythm. Lungs: No crackles or wheezes are heard. Abdomen: Soft, midepigastric tenderness, nondistended with bowel sounds. No peritoneal signs. No palpable organomegaly or masses. Extremities: Normal skin color and turgor. No cyanosis, rash, ulceration, clubbing, or edema. Radial and pedal pulses are 2/4 bilaterally. Neurological: No focal deficits. Strength and sensation are grossly intact. 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 Status: Acute Plan: 1. Supportive measures. IV hydration. Continue clear liquids and advance as tolerated. Patient will follow-up [facility] for biopsy results. Assessment and plan a care discussed with Dr. Berman
[2017-01-19 11:02] LABS: Basophils % (A) 0 %; CH 28.9; CHCM 33.5; Eosinophils # (A) 0.3 k/uL (0-0.7); Eosinophils % (A) 2 %; HCT 34.8 % (34.0-46.0); HDW 2.92; HGB 12.2 gm/dL (11.4-16.0); Luc # (Auto) 0.21; Luc % (Auto) 1; Lymphocytes # (A) 1.2 k/uL (1.0-4.8); Lymphocytes % (A) 8 %; MCH 30.3 pg (25.0-35.0); MCV 86.6 fL (80.0-100.0); Mean Platelet Volume 8.3; Monocytes # (A) 0.7 k/uL (0-1.0); Monocytes % (A) 5 %; Neutrophils # (A) 12.9 k/uL (1.3-7.7); Neutrophils % (A) 84 %; RBC 4.02 m/uL (3.80-5.40); RDW 14.2 % (11.5-15.5); WBC 15.4 k/uL (3.8-10.6); WBC (Perox) 16.69
--- NOTE | 2017-01-19 17:56 | P.PN ---
<Angela Duenas - Last Filed: 01/19/17 17:56> Progress Note - Text DATE OF SERVICE: 01/19/2017 PRESENTING COMPLAINT: Abdominal pain, nausea INTERVAL HISTORY: 51-year-old female who presented with acute abdominal pain secondary to pancreatitis. 01/19/2017: Patient continues to complain of nausea, unable to tolerate clear liquid diet, tenderness to abdomen, pain medication helps as does antinausea medication. REVIEW OF SYSTEMS: Done for constitutional ,cardiovascular, GI, pulmonary with relevant findings as above. CURRENT MEDICATIONS Lovenox, Pepcid, Dilaudid, Claritin, Reglan, Zofran, Protonix. PHYSICAL EXAM VITAL SIGNS: Temperature 97.9, pulse 83, respiratory rate 16, blood pressure 134/79, oxygen saturation 97% on room air. GENERAL APPEARANCE: Lying in bed, not in distress however appears uncomfortable. EYES: Pupils equal. Conjunctiva normal. NECK: JVD not raised. Mass not palpable. RESPIRATORY: Respiratory effort normal. Lungs clear to auscultation. CARDIOVASCULAR: First and second sounds normal. No edema. ABDOMEN: Soft. Tenderness noted to right upper quadrant and midepigastric area ,Liver and spleen not palpable. No tenderness. No mass palpable. PSYCHIATRY: Alert and oriented x3. Mood and affect normal. INVESTIGATIONS: White blood cell count 15.4, lipase 832 ASSESSMENT: -Acute severe recurrent pancreatitis in a patient where autoimmune pancreatitis was ruled out previously, recent [facility] evaluation 01/16/2017 -Leukocytosis secondary to #1 -Gastroesophageal reflux disease -Chronic uterine fibroids, menorrhagia from fibroids. PLAN: We will continue clear liquid diet, and IV fluids pain control, encourage patient to move about. Plan of care discussed with patient and questions were answered we'll follow closely. LOOM CHANGEOVER OPERATOR statement: Patient was seen and examined by nurse practitioner Angela Duenas and all elements of the case discussed with attending Dr. Washington <Odilon Washington - Last Filed: 01/19/17 19:59> Progress Note - Text Attending note. Date of service-01/19/2017 This patient was seen and examined by me . I reviewed the note of my nurse practitioner, Ms. Duenas. Discussed with her, additional findings as below. Abdominal pain is better. Some nausea still present. Has been out of bed. Did tolerate some clear liquids. On examination: Afebrile, decreased epigastric tenderness, no guarding or rigidity Investigations: White count 15.4, platelets is 138, lipase a 32 Assessment and plan: Acute severe recurrent pancreatitis in a patient status post endoscopic ultrasound followed by another episode, with clinical improvement. Told the patient to be up and about, continue with fluids. Advance diet as tolerated
[2017-01-20] MEDS: METOCLOPRAMIDE 5 MG/ML 2 ML VIAL IVP PRN ×2 (00:47→08:45)
[2017-01-20] MEDS: HYDROmorphone 1 MG/ML 1 ML SYRINGE IV PRN ×4 (00:47→12:17)
[2017-01-20] MEDS: ONDANSETRON 4 MG/2 ML VIAL IVP PRN ×2 (05:22→12:17)
[2017-01-20] MEDS: SODIUM CHLORIDE 0.9% 1,000 ML IV SCH ×3 (05:30→17:03)
[2017-01-20] MEDS: FAMOTIDINE 20 MG TAB PO SCH ×2 (08:44→20:39)
[2017-01-20] MEDS: PANTOPRAZOLE 40 MG TABLET PO SCH (08:44)
[2017-01-20] MEDS: LORATADINE 10 MG TAB PO SCH (08:44)
[2017-01-20] MEDS: ENOXAPARIN 40 MG/0.4 ML SYRINGE SQ SCH (08:45)
[2017-01-20 09:07] LABS: ALT 24 U/L (9-52); AST 14 U/L (14-36); Alkaline Phosphatase 71 U/L (38-126); Amylase 48 U/L (30-110); Anion Gap 12 mmol/L; Blood Urea Nitrogen 5 mg/dL (7-17); Calcium 8.3 mg/dL (8.4-10.2); Carbon Dioxide 21 mmol/L (22-30); Chloride 102 mmol/L (98-107); Glucose 61 mg/dL (74-99); Non-African American GFR(MDRD) >60 (>60 ml/min/1.73 sqM); Potassium 3.3 mmol/L (3.5-5.1); Sodium 135 mmol/L (137-145); Total Bilirubin 0.9 mg/dL (0.2-1.3); Total Protein 5.7 g/dL (6.3-8.2)
[2017-01-20] MEDS ORDERED: POTASSIUM CHLORIDE ER 20 MEQ TAB.ER PO STA (12:30)
[2017-01-20] MEDS ORDERED: traMADol 50 MG TAB PO PRN (13:02)
[2017-01-20] MEDS: traMADol 50 MG TAB PO PRN ×3 (16:02→23:12)
--- NOTE | 2017-01-20 19:00 | P.PN ---
Progress Note - Text DATE OF SERVICE: 01/20/2017 PRESENTING COMPLAINT: Abdominal pain, nausea INTERVAL HISTORY: 51-year-old female who presented with acute abdominal pain secondary to pancreatitis. 01/19/2017: Patient continues to complain of nausea, unable to tolerate clear liquid diet, tenderness to abdomen, pain medication helps as does antinausea medication. 01/20/2017: Patient complains of pain and nausea, is now able to tolerate some clear liquids, encourage patient to be up ambulating as this will help her feel better, amylase and lipase are normalized, patient also instructed to be off of the IV pain meds and to try orals. REVIEW OF SYSTEMS: Done for constitutional ,cardiovascular, GI, pulmonary with relevant findings as above. CURRENT MEDICATIONS Lovenox, Pepcid, Claritin, Reglan, Zofran, Protonix. PHYSICAL EXAM VITAL SIGNS: Temperature 98.5, pulse 92, respiratory rate 16, blood pressure 141/80, oxygen saturation 98% on room air. GENERAL APPEARANCE: Lying in bed, not in distress however appears uncomfortable. EYES: Pupils equal. Conjunctiva normal. NECK: JVD not raised. Mass not palpable. RESPIRATORY: Respiratory effort normal. Lungs clear to auscultation. CARDIOVASCULAR: First and second sounds normal. No edema. ABDOMEN: Soft. Tenderness noted to right upper quadrant and midepigastric area ,Liver and spleen not palpable. No tenderness. No mass palpable. PSYCHIATRY: Alert and oriented x3. Mood and affect normal. INVESTIGATIONS: Sodium 135, potassium 3.3, amylase 48, lipase 63. ASSESSMENT: -Acute severe recurrent pancreatitis in a patient status post endoscopic ultrasound followed by another episode with clinical improvement -Leukocytosis secondary to #1 -Gastroesophageal reflux disease -Chronic uterine fibroids, menorrhagia from fibroids. -Hypokalemia secondary to vomiting/GI losses. PLAN: We will continue clear liquid diet, advance as tolerated and IV fluids oral pain control, potassium supplemented encourage patient to move about. Plan of care discussed with patient and questions were answered we'll follow closely. LITHOGRAPHIC PRESS OPERATOR statement: Patient was seen and examined by nurse practitioner Angela Duenas and all elements of the case discussed with attending Dr. Washington
[2017-01-21] MEDS: SODIUM CHLORIDE 0.9% 1,000 ML IV SCH ×2 (04:21→08:37)
--- NOTE | 2017-01-21 08:19 | P.PN ---
Subjective The patient is a 51-year-old female who was admitted with pancreatitis few days after having had an EUS with pancreas biopsy part of the workup of chronic relapsing pancreatitis. She had elevated amylase and lipase and normal pancreas on US. The patient had 3 prior episodes of pancreatitis. One around 3 years ago and two recent episode in November and December of this year. On her hospitalization in November , her amylase and lipase were normal but the CT of the abdomen showed evidence of pancreatitis and she had clinical symptoms. The patient was subsequently referred as outpatient to the [facility] where she was seen by Dr Surya Hampton who has scheduled her for an endoscopic ultrasound on 01/16/2017 further workup of possible autoimmune pancreatitis. The patient had normal IgG 4 levels in November at 84.2 and he was considering the possibility of type II autoimmune pancreatitis. The patient had prior cholecystectomy and there is no history of alcohol dependency and has not been exposed to any new medications. The patient found out through the portal that her biopsy was not consistent with autoimmune hepatitis. She has some nausea today, but tolerating liquids. No vomiting. Objective - Vital Signs Vital signs: Vital Signs Temp 98.5 F 01/20/17 07:00 Pulse 92 01/20/17 07:00 Resp 16 01/20/17 07:00 BP 141/80 01/20/17 07:00 Pulse Ox 98 01/20/17 07:00 Intake & Output 01/19/17 01/20/17 01/20/17 18:59 06:59 18:59 Other: Voiding Method Toilet # Voids 2 1 1 - Exam General appearance: The patient is alert, oriented, in no acute distress. HET: Head is normocephalic and atraumatic. Pupils are equal and reactive. Oropharynx is clear without lesions. Neck: Supple without lymphadenopathy. Trachea midline. Heart: S1 S2. Lungs: No crackles or wheezes are heard. Abdomen: Soft, nontender, nondistended with bowel sounds. No peritoneal signs. No palpable organomegaly or masses. Extremities: Normal skin color and turgor. No cyanosis, rash, ulceration, clubbing, or edema. Radial and pedal pulses are 2/4 bilaterally. Neurological: No focal deficits. Strength and sensation are grossly intact. - Labs CBC & Chem 7: 01/19/17 07:18 01/20/17 07:46 Labs: Abnormal Lab Results - Last 24 Hours (Table) 01/19/17 01/20/17 Range/Units 07:18 07:46 WBC 15.4 H (3.8-10.6) k/uL Plt Count 138 L (150-450) k/uL Neutrophils # 12.9 H (1.3-7.7) k/uL Sodium 135 L (137-145) mmol/L Potassium 3.3 L (3.5-5.1) mmol/L Carbon Dioxide 21 L (22-30) mmol/L BUN 5 L (7-17) mg/dL Glucose 61 L (74-99) mg/dL Calcium 8.3 L (8.4-10.2) mg/dL Total Protein 5.7 L (6.3-8.2) g/dL Albumin 3.0 L (3.5-5.0) g/dL Assessment and Plan Plan: 51-year old female with chronic relapsing pancreatitis, probably idiopathic in light of the negative biopsy for autoimmune hepatitis. Will continue supportive measures and follow with interest.
[2017-01-21] MEDS: PANTOPRAZOLE 40 MG TABLET PO SCH (08:36)
[2017-01-21] MEDS: ENOXAPARIN 40 MG/0.4 ML SYRINGE SQ SCH (08:36)
[2017-01-21] MEDS: FAMOTIDINE 20 MG TAB PO SCH (08:36)
[2017-01-21] MEDS: LORATADINE 10 MG TAB PO SCH (08:36)
[2017-01-21] MEDS: traMADol 50 MG TAB PO PRN (08:37)
[2017-01-21 09:27] LABS: Basophils % (A) 0 %; CH 29.8; CHCM 33.5; Eosinophils # (A) 0.7 k/uL (0-0.7); Eosinophils % (A) 9 %; HCT 35.7 % (34.0-46.0); HDW 3.01; HGB 11.9 gm/dL (11.4-16.0); Luc # (Auto) 0.19; Luc % (Auto) 3; Lymphocytes # (A) 1.2 k/uL (1.0-4.8); Lymphocytes % (A) 16 %; MCH 29.7 pg (25.0-35.0); MCHC 33.2 g/dL (31.0-37.0); MCV 89.3 fL (80.0-100.0); Mean Platelet Volume 7.7; Monocytes # (A) 0.4 k/uL (0-1.0); Monocytes % (A) 5 %; Neutrophils # (A) 4.9 k/uL (1.3-7.7); Neutrophils % (A) 67 %; RDW 14.4 % (11.5-15.5); WBC 7.4 k/uL (3.8-10.6); WBC (Perox) 7.45
[2017-01-21 09:30] LABS: Amylase <30 U/L (30-110); Anion Gap 7 mmol/L; Blood Urea Nitrogen 4 mg/dL (7-17); Calcium 8.4 mg/dL (8.4-10.2); Carbon Dioxide 26 mmol/L (22-30); Chloride 105 mmol/L (98-107); Glucose 124 mg/dL (74-99); Non-African American GFR(MDRD) >60 (>60 ml/min/1.73 sqM); Potassium 3.5 mmol/L (3.5-5.1); Sodium 138 mmol/L (137-145)
--- NOTE | 2017-01-21 10:02 | PN ---
DATE OF SERVICE: 01/20/2017 ATTENDING NOTE: This patient seen and examined by me. Reviewed the note of my nurse practitioner, Ms. Multani. Discussed her findings below. The patient is status post pancreatitis, falling, endoscopic ultrasound. Abdominal pain is much improved. Amylase and lipase nearly back to normal. On exam, decreased abdominal tenderness. Patient doing better. The patient's sister and are at the bedside. INVESTIGATIONS: Amylase and lipase normal. ASSESSMENT: Acute pancreatitis secondary to endoscopic ultrasound. Patient does inform me today that she was told it is not the immunological type. PLAN: Patient will be switched over from IV Dilaudid to p.o. Ultram as that itself may be causing nausea. Patient encouraged to be up and about. Diet will be advanced to soft bland, see how she fairs. AMARI
[2017-01-21] MEDS ORDERED: POTASSIUM CHLORIDE ER 20 MEQ TAB.ER PO STA (13:08)
[2017-01-21 14:13] VITALS: BP 151/74; PULSE 82; RESP 16; TEMP 98.5
--- NOTE | 2017-01-22 12:21 | DS ---
DATE OF ADMISSION: 01/18/2017 DATE OF DISCHARGE: 01/21/2017 FINAL DIAGNOSES: 1. Acute severe recurrent pancreatitis in a patient status post endoscopic ultrasound. 2. Leukocytosis secondary to #1. 3. Gastroesophageal reflux disease. 4. Chronic uterine fibroids causing menorrhagia. 5. Hypokalemia secondary to vomiting. HOSPITAL COURSE: This is a patient who is having pancreatitis worked up at [facility], just underwent an endoscopic ultrasound as expected, underwent a bout of acute pancreatitis. Amylase, lipase was 543 and 3836 at the time of admission. Did come down to normal by the time of discharge. Patient is tolerating her soft bland diet by the time of discharge. On examination, abdomen soft, nontender. Patient is afebrile. Normal white count. Care was discussed with the patient and family at the bedside. DISCHARGE MEDICATIONS: 1. Claritin 10 mg p.o. daily. 2. Ovcon 35 mg tablet daily. 3. Vitamin 3 five hundred mg daily. 4. Vitamin D3 one thousand units p.o. daily. 5. Curcumin 1 tablet p.o. daily. 6. Vitamin B12 five hundred mcg p.o. daily. 7. Grapeseed oil 1 capsule p.o. daily. 8. Aciphex 20 mg p.o. daily. Follow up with Dr. Brower in 3 days. Patient is to follow up with her GI specialist in [place] as scheduled. [facility]
== END 2017-01-21 15:08 | disposition home or self-care (01) | DRG 440 ==
LOC: EC 05:11 → 4MS4W 06:45
PROVIDERS: ADMIT Hospitalist; ATTEND Hospitalist
DX: K85.90 Acute pancreatitis without necrosis or infection, unspecified (principal); D25.9 Leiomyoma of uterus, unspecified; K21.9 Gastro-esophageal reflux disease without esophagitis; K86.1 Other chronic pancreatitis; E87.6 Hypokalemia; N92.0 Excessive and frequent menstruation with regular cycle; Z87.11 Personal history of peptic ulcer disease; Z90.49 Acquired absence of other specified parts of digestive tract; Z79.899 Other long term (current) drug therapy
CPT/HCPCS: 36415; 76705; 80048; 80053; 81001; 82150; 83690; 85025

== ENCOUNTER 2018-03-13 13:06 | Inpatient (IN) | payer BC, OTHER ==
--- NOTE | 2018-03-13 14:15 | XR ---
EXAMINATION TYPE: XR KUB DATE OF EXAM: 03/13/2018 CLINICAL DATA: 52-year-old female with abdominal pain, [facility] COMPARISON: 11/12/2016 FINDINGS: Lung bases are clear. No evidence for free intraperitoneal air. There are small mid abdominal small bowel air-fluid levels. No dilated bowel loops. Air and stool is present throughout the colon extending distally to the rectum. Mild overall stool burden. Cholecystectomy clips. A dropped clip in the right abdomen. Vascular calcifications in the pelvis are unchanged. IMPRESSION: 1. Mild stool burden. A few small air-fluid levels in the mid abdomen probably transient or could rep resent a regional ileus/enteritis. 2.No evidence of bowel obstruction or free intraperitoneal air.
[2018-03-13] MEDS ORDERED: SODIUM CHLORIDE 0.9% 1,000 ML IV STA ×2 (14:19→16:50)
[2018-03-13] MEDS ORDERED: MORPHINE SULFATE 4 MG/ML SYRINGE IV STA (14:19)
[2018-03-13] MEDS ORDERED: ONDANSETRON 4 MG/2 ML VIAL IVP STA (14:19)
[2018-03-13] MEDS ORDERED: FAMOTIDINE 20 MG/2 ML VIAL IV STA (14:19)
--- NOTE | 2018-03-13 14:21 | ED ---
General Adult HPI - General Chief complaint: Abdominal Pain Stated complaint: abd pain Time Seen by Provider: 03/13/18 13:56 Source: patient, family, RN notes reviewed Mode of arrival: wheelchair Limitations: no limitations - History of Present Illness Initial comments: Patient's a 52-year-old female significant past medical history for pancreatitis does come presented to the emergency room today with a chief complaint of increased abdominal pain that started yesterday. Patient does admit that she's had episodes of nausea vomiting. Does admit to pain in the epigastric area. She states the symptoms are consistent with pancreatitis that she's had in the past. She states she's been to specialist and they have not been able to diagnose the cause of finger tenderness. Patient states her last flareup was approximately a year ago. Patient denies any other complaints or symptoms. Patient denies any recent fever, chills, shortness of breath, chest pain, numbness or tingling, dysuria or hematuria, constipation or diarrhea, headaches or visual changes, or any other complaints. - Related Data Home Medications Medication Instructions Recorded Confirmed Loratadine [Claritin] 10 mg PO DAILY 03/20/14 03/13/18 Ascorbic Acid [Vitamin C] 500 mg PO DAILY 01/18/17 03/13/18 Cholecalciferol [Vitamin D3] 1,000 unit PO DAILY 01/18/17 03/13/18 Cyanocobalamin [Vitamin B-12] 500 mcg PO DAILY 01/18/17 03/13/18 RABEprazole SODIUM [Aciphex] 20 mg PO DAILY 01/18/17 03/13/18 Estradiol [Divigel] 1 packet TOPICAL DAILY 03/13/18 03/13/18 Ibuprofen [Motrin Ib] 800 mg PO Q6H PRN 03/13/18 03/13/18 Ondansetron [Zofran] 4 mg PO Q8HR PRN 03/13/18 03/13/18 Allergies Allergy/AdvReac Type Severity Reaction Status Date / Time No Known Allergies Allergy Verified 03/13/18 14:10 Review of Systems ROS Statement: Those systems with pertinent positive or pertinent negative responses have been documented in the HPI. ROS Other: All systems not noted in ROS Statement are negative. 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 Pylori History of Any Multi-Drug Resistant Organisms: None Reported Past Surgical History: Appendectomy, Breast Surgery, Cholecystectomy, Hysterectomy Additional Past Surgical History / Comment(s): uterine fibroid removed, lumpectomy left benign Past Anesthesia/Blood Transfusion Reactions: No Reported Reaction Past Psychological History: No Psychological Hx Reported Smoking Status: Never smoker Past Alcohol Use History: None Reported Past Drug Use History: None Reported - Past Family History Father Family Medical History: Cancer Additional Family Medical History / Comment(s): esophageal Mother Family Medical History: CVA/TIA Sister(s) Family Medical History: Cancer Additional Family Medical History / Comment(s): COLON General Exam - General Exam Comments Initial Comments: General: The patient is awake and alert, in no distress, and does not appear acutely ill. Eye: Pupils are equal, round and reactive to light. Extra-ocular movements are intact. No nystagmus. There is normal conjunctiva bilaterally. No signs of icterus. Ears, nose, mouth and throat: There are moist mucous membranes and no oral lesions. Neck: The neck is supple, there is no tenderness or JVD. Cardiovascular: There is a regular rate and rhythm. No murmur, rub or gallop is appreciated. Respiratory: Lungs are clear to auscultation, respirations are non-labored, breath sounds are equal. No wheezes, stridor, rales, or rhonchi. Gastrointestinal: Abdomen soft on palpation. Patient does have tenderness epigastric. No rebound, guarding or CVA tenderness. Musculoskeletal: Normal ROM, no tenderness. Sensation intact. Strength 5/5. Pulses equal bilaterally 2+. Neurological: A&O x 3. CN II-XII intact, There are no obvious motor or sensory deficits. Coordination appears grossly intact. Speech is normal. Skin: Skin is warm and dry and no rashes or lesions are noted. Psychiatric: Cooperative, appropriate mood & affect, normal judgment. Limitations: no limitations Course Vital Signs 03/13/18 03/13/18 13:38 15:36 Temperature 98.7 F 98.4 F Pulse Rate 76 63 Respiratory 18 18 Rate Blood Pressure 122/80 130/69 O2 Sat by Pulse 100 99 Oximetry Medical Decision Making - Medical Decision Making Patient reexamined at this time does admit to improvement after medications given here in the emergency room. Still experiencing some discomfort to the epigastric area. Patient states is symptoms are consistent with her pancreatitis. Patient labs been reviewed and showed 19,000 white count. Lipase is mildly elevated in the 400s. Patient's CT the abdomen and pelvis does reveal evidence 1. Hypodense head and proximal body of the pancreas. Mild pericarditis should be considered. Intracranial mass is considered less likely as read by radiologist a troponin. Patient unable to tolerate by mouth liquids. Will be admitted to hospitalist doctor, - Lab Data Result diagrams: 03/13/18 14:01 03/13/18 14:01 Lab Results 03/13/18 03/13/18 03/13/18 Range/Units 14: 14:01 14:39 WBC 19.5 H (3.8-10.6) k/uL RBC 4.94 (3.80-5.40) m/uL Hgb 14.4 (11.4-16.0) gm/dL Hct 44.2 (34.0-46.0) % MCV 89.5 (80.0-100.0) fL MCH 29.2 (25.0-35.0) pg MCHC 32.6 (31.0-37.0) g/dL RDW 13.5 (11.5-15.5) % Plt Count 152 (150-450) k/uL Neutrophils % 89 % Lymphocytes % 6 % Monocytes % 4 % Eosinophils % 1 % Basophils % 0 % Neutrophils # 17.2 H (1.3-7.7) k/uL Lymphocytes # 1.1 (1.0-4.8) k/uL Monocytes # 0.8 (0-1.0) k/uL Eosinophils # 0.2 (0-0.7) k/uL Basophils # 0.0 (0-0.2) k/uL Sodium 135 L (137-145) mmol/L Potassium 4.7 (3.5-5.1) mmol/L Chloride 98 (98-107) mmol/L Carbon Dioxide 26 (22-30) mmol/L Anion Gap 11 mmol/L BUN 9 (7-17) mg/dL Creatinine 0.65 (0.52-1.04) mg/dL Est GFR (CKD-EPI)AfAm >90 (>60 ml/min/1.73 sqM) Est GFR (CKD-EPI)NonAf >90 (>60 ml/min/1.73 sqM) Glucose 100 H (74-99) mg/dL Calcium 8.8 (8.4-10.2) mg/dL Total Bilirubin 0.9 (0.2-1.3) mg/dL AST 35 (14-36) U/L ALT 24 (9-52) U/L Alkaline Phosphatase 75 (38-126) U/L Total Protein 7.7 (6.3-8.2) g/dL Albumin 4.2 (3.5-5.0) g/dL Amylase 134 H (30-110) U/L Lipase 417 H (23-300) U/L Urine Color Yellow Urine Appearance Clear (Clear) Urine pH 6.5 (5.0-8.0) Ur Specific [place] 1.014 (1.001-1.035) Urine Protein Negative (Negative) Urine Glucose (UA) Negative (Negative) Urine Ketones 1+ H (Negative) Urine Blood Negative (Negative) Urine Nitrite Negative (Negative) Urine Bilirubin Negative (Negative) Urine Urobilinogen <2.0 (<2.0) mg/dL Ur Leukocyte Esterase Trace H (Negative) Urine RBC 7 H (0-5) /hpf Urine WBC 1 (0-5) /hpf Ur Squamous Epith Cells 2 (0-4) /hpf Urine Bacteria Rare H (None) /hpf Urine Mucus Occasional H (None) /hpf Disposition Clinical Impression: Acute pancreatitis Disposition: ADMITTED IP TO THIS [facility] Condition: Good Is patient prescribed a controlled substance at d/c from ED?: No Referrals: Mina Brower MD [Primary Care Provider] - 1-2 days Time of Disposition: 16:24
[2018-03-13 14:24] LABS: Basophils % (A) 0 %; Eosinophils # (A) 0.2 k/uL (0-0.7); Eosinophils % (A) 1 %; HCT 44.2 % (34.0-46.0); HGB 14.4 gm/dL (11.4-16.0); Lymphocytes # (A) 1.1 k/uL (1.0-4.8); Lymphocytes % (A) 6 %; MCH 29.2 pg (25.0-35.0); MCHC 32.6 g/dL (31.0-37.0); MCV 89.5 fL (80.0-100.0); Mean Platelet Volume 7.3; Monocytes # (A) 0.8 k/uL (0-1.0); Monocytes % (A) 4 %; Neutrophils # (A) 17.2 k/uL (1.3-7.7); Neutrophils % (A) 89 %; Platelet Count 152 k/uL (150-450); RBC 4.94 m/uL (3.80-5.40); RDW 13.5 % (11.5-15.5); WBC 19.5 k/uL (3.8-10.6)
[2018-03-13 14:34] LABS: ALT 24 U/L (9-52); AST 35 U/L (14-36); Albumin 4.2 g/dL (3.5-5.0); Alkaline Phosphatase 75 U/L (38-126); Amylase 134 U/L (30-110); Anion Gap 11 mmol/L; Blood Urea Nitrogen 9 mg/dL (7-17); Calcium 8.8 mg/dL (8.4-10.2); Carbon Dioxide 26 mmol/L (22-30); Chloride 98 mmol/L (98-107); Glucose 100 mg/dL (74-99); Lipase 417 U/L (23-300); Sodium 135 mmol/L (137-145); Total Bilirubin 0.9 mg/dL (0.2-1.3); Total Protein 7.7 g/dL (6.3-8.2)
[2018-03-13 14:50] LABS: Potassium 4.7 mmol/L (3.5-5.1)
[2018-03-13 14:50] LABS: Appearance,Urine Clear (Clear); Bacteria,Urine Rare /hpf; Bilirubin,Urine Negative (Negative); Blood,Urine Negative (Negative); Color,Urine Yellow; Glucose,Urine (UA) Negative (Negative); Ketones,Urine 1+ (Negative); Leukocyte Esterase,Urine Trace (Negative); Mucus,Urine Occasional /hpf; Nitrite,Urine Negative (Negative); PH, Urine 6.5 (5.0-8.0); Protein,Urine Negative (Negative); RBC,Urine 7 /hpf (0-5); Specific Gravity,Urine 1.014 (1.001-1.035); Squamous Epithelial Cell,Urine 2 /hpf (0-4); Urobilinogen,Urine <2.0 mg/dL (<2.0); WBC,Urine 1 /hpf (0-5)
--- NOTE | 2018-03-13 15:44 | CT ---
EXAMINATION TYPE: CT abdomen pelvis w con DATE OF EXAM: 03/13/2018 COMPARISON: 11/12/2016 INDICATION: Abdominal pain, history of pancreatitis DLP: 509.0 mGycm, Automated exposure control for dose reduction was used. CONTRAST: 100 mL of Isovue 300. Study performed without Oral Contrast TECHNIQUE: Axial images were obtained from above the diaphragm to the pubic rami in the axial plane a t 5 mm thick sections. Reconstructed images are reviewed on the computer in the coronal plane. FINDINGS: Limited CT sections are obtained the lung bases. Mild infiltrate is at the right lung base most like ly compressive atelectasis.. CT ABDOMEN: Liver: There is a 1.9 cm cyst in the superior right lobe liver measuring 15 Hounsfield units. Liver o therwise appears unremarkable. Spleen: Subtle hypodensity within the mid spleen Pancreas: Head and proximal body the pancreas is slightly hypodense in relation to the remaining port ions of the spleen. Correlate for acute pancreatitis. Inflammatory changes adjacent are not identifie d. Underlying mass is not excluded. However, no biliary dilatation is identified. No pancreatic duct dilatation is evident. Adrenal glands: The adrenal glands are normal. Gallbladder: Surgically absent Kidneys: No masses are evident. No hydronephrosis is present. No cysts are present. Delayed images were obtained through the kidneys, which remain unremarkable. Aorta: Normal Inferior vena cava: Normal. CT PELVIS: Loops of bowel within the abdomen and pelvis are normal. There are a few diverticuli within the s igmoid colon. Studies performed without oral contrast limiting bowel evaluation. Appendix: Not visualized Urinary bladder: Normal. Genitourinary structures: Uterus is absent. Adnexal regions appear unremarkable Osseous structures: No suspicious lytic or sclerotic lesions. There is a sclerotic area within the ri ght iliac wing sacroiliac joint. IMPRESSIONS: 1. Hypodense head and proximal body of the pancreas. Mild pancreatitis should be considered. Infiltr ative mass is considered less likely
[2018-03-13] MEDS ORDERED: NALOXONE 0.4 MG/ML 1 ML VIAL IV PRN (16:26)
[2018-03-13] MEDS ORDERED: ONDANSETRON 4 MG/2 ML VIAL IVP PRN (16:26)
[2018-03-13] MEDS: MORPHINE SULFATE 4 MG/ML SYRINGE IV PRN ×2 (16:54→21:08)
--- NOTE | 2018-03-13 22:32 | HP ---
HISTORY AND PHYSICAL DATE OF ADMISSION: 03/13/2018 DATE OF SERVICE: 03/13/2018. PRESENTING COMPLAINT: Abdominal pain. HISTORY OF PRESENTING COMPLAINT: This is a very pleasant 52-year-old patient of Dr. Brower. Chronic stable medical conditions include GERD and recurrent pancreatitis. The patient did go down to [facility] and had an endoscopic ultrasound and that did rule out autoimmune pancreatitis. She is now being labeled as idiopathic pancreatitis. Patient's last episode was about a year ago. Patient now presents with one day of increasing abdominal pain, nausea, vomiting, some chills; admitted for the same. Patient did get IV pain medication in the ER. REVIEW OF SYSTEMS: CONSTITUTIONAL: Tired, chills. HEENT: None. RESPIRATORY: None. CARDIOVASCULAR: None. GASTROINTESTINAL: As above. GENITOURINARY: None. MUSCULOSKELETAL: None. DERMATOLOGICAL: None. HEMATOLOGICAL: None. LYMPHATICS: None. PSYCHIATRY: None. NEUROLOGICAL: None. PAST MEDICAL HISTORY: 1. Idiopathic pancreatitis. 2. GERD. PAST SURGICAL HISTORY: 1. Appendectomy. 2. Cholecystectomy. 3. Hysterectomy for uterine fibroids. SOCIAL HISTORY: No smoking. No alcohol. 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 . FAMILY HISTORY: Colon cancer. HOME MEDICATIONS: 1. AcipHex 20 mg p.o. daily. 2. Zofran 4 mg q.8 p.r.n. 3. Claritin 10 mg p.o. daily. 4. Divigel 1 packet topically daily. 5. Vitamin B12 500 mcg p.o. daily. 6. Vitamin D3 1000 units p.o. daily. 7. Vitamin C 500 mg p.o. daily. ALLERGIES: NONE. PHYSICAL EXAMINATION: VITAL SIGNS ON PRESENTATION: Temperature 98.7, pulse 76, respiration 18, blood pressure 120/80, pulse ox 100% on room air. GENERAL APPEARANCE: Average build. Lying in bed, tired-appearing. EYES: Pupils equal. Conjunctivae normal. HEENT: External appearance of nose and ears normal. Oral cavity normal. NECK: JVD not raised. Mass not palpable. RESPIRATORY: Effort normal. Lungs are clear. CARDIOVASCULAR: First and second sounds normal. No edema. ABDOMEN: Epigastric tenderness. Liver and spleen not palpable. LYMPHATIC: No lymph node palpable in neck or axillae. PSYCHIATRY: Alert and oriented x3. Mood and affect normal. NEUROLOGICAL: Pupils equal. Cranial nerves grossly intact. Power and sensation grossly intact. INVESTIGATIONS: White count 19.5, hemoglobin 14.4, potassium 4.7. BUN and creatinine are normal. Amylase 134, lipase 417. CT scan of the abdomen and pelvis shows evidence of pancreatitis. ASSESSMENT: 1. Acute recurrent pancreatitis, now labeled as idiopathic. 2. Leukocytosis secondary to above. 3. Gastroesophageal reflux disease. PLAN: Patient is put on IV fluids, IV pain medications. Home medications will be resumed. Patient is currently n.p.o. Care was discussed with the patient. Questions were answered. MMODL / IJN: [id number] /
[2018-03-14] MEDS: MORPHINE SULFATE 4 MG/ML SYRINGE IV PRN ×6 (01:01→21:50)
[2018-03-14] MEDS: ONDANSETRON 4 MG/2 ML VIAL IVP PRN ×4 (01:09→18:57)
[2018-03-14] MEDS: ESTRADIOL TOPICAL SCH (08:06)
[2018-03-14] MEDS: PANTOPRAZOLE 40 MG TABLET PO SCH (08:07)
[2018-03-14] MEDS: ENOXAPARIN 40 MG/0.4 ML SYRINGE SQ SCH (08:07)
[2018-03-14 08:20] LABS: Basophils % (A) 0 %; Eosinophils # (A) 0.1 k/uL (0-0.7); Eosinophils % (A) 1 %; HCT 38.8 % (34.0-46.0); Lymphocytes # (A) 1.3 k/uL (1.0-4.8); Lymphocytes % (A) 8 %; MCH 30.2 pg (25.0-35.0); MCHC 33.5 g/dL (31.0-37.0); MCV 90.1 fL (80.0-100.0); Mean Platelet Volume 7.3; Monocytes # (A) 0.8 k/uL (0-1.0); Monocytes % (A) 5 %; Neutrophils # (A) 14.6 k/uL (1.3-7.7); Neutrophils % (A) 86 %; Platelet Count 142 k/uL (150-450); RBC 4.31 m/uL (3.80-5.40); RDW 13.5 % (11.5-15.5)
[2018-03-14 08:47] LABS: ALT 29 U/L (9-52); AST 22 U/L (14-36); Albumin 3.3 g/dL (3.5-5.0); Alkaline Phosphatase 65 U/L (38-126); Amylase 60 U/L (30-110); Anion Gap 9 mmol/L; Blood Urea Nitrogen 10 mg/dL (7-17); Calcium 8.3 mg/dL (8.4-10.2); Carbon Dioxide 24 mmol/L (22-30); Chloride 104 mmol/L (98-107); Glucose 85 mg/dL (74-99); Lipase 85 U/L (23-300); Potassium 3.7 mmol/L (3.5-5.1); Sodium 137 mmol/L (137-145); Total Bilirubin 0.5 mg/dL (0.2-1.3); Total Protein 6.1 g/dL (6.3-8.2)
--- NOTE | 2018-03-14 12:32 | P.CONS ---
History of Present Illness - Reason for Consult Consult date: 03/14/18 Pancreatitis Requesting physician: Odilon Washington - Chief Complaint abdominal pain - History of Present Illness 52-year-old female with a history of idiopathic pancreatitis first episode about 5 years ago 2012 when she underwent cholecystectomy for biliary dyskinesia HIDA 7 % unsure if she had gallbladder sludge or stones. Pancreatitis has been previously investigated at [facility] in 2017 w/ negative EUS. Admitted with acute upper back midepigastric abdominal pain 2 days with mild elevation of pancreatic enzymes. Last exacerbation of pancreatitis about 4 months ago at home did not require hospitalizatoin. Admission Lipase 417. Amylase 134. Today amylase and lipase have normalized. LFTs within normal limits. Denies fever chills hematemesis hematemesis or melena. White count 19.5 presently 17. Hemoglobin 13. Platelet 142. BUN 9. Creatinine 0.6. Calcium 8.8. In regards to [facility] evaluation last year ERCP was not advised and she is unsure if an MRI was ever performed. CT abdomen and pelvis hypodense head and proximal body of the pancreas mild pancreatic head should be considered. Infiltrative mass considered less likely. Review of Systems Constitutional: Denies fever, chills, sweats, weight gain, or loss. HEENT: Negative for migraines, blurred vision or loss, earaches, drainage, tinnitus, oral mucosal lesions, dysphagia, or odynophagia. CARDIAC: Negative for chest pain, arrhythmias, or palpitation. RESPIRATORY: Negative for shortness of breath, hemoptysis, cough, or sputum production. GI: See HPI for pertinent findings. : Negative for hematuria, urgency, frequency, polyuria, or dysuria. GYNc: Denies possibility of . Negative vaginal discharge. MUSCULOSKELETAL: Negative for muscle aches, swelling, arthritis, and arthralgias. NEUROLOGIC: Negative for stroke or TIA. ENDOCRINE: Negative for thyroid problems. SKIN: Negative for rash or itching. 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 Pylori History of Any Multi-Drug Resistant Organisms: None Reported Past Surgical History: Appendectomy, Breast Surgery, Cholecystectomy, Hysterectomy Additional Past Surgical History / Comment(s): uterine fibroid removed, lumpectomy left benign Past Anesthesia/Blood Transfusion Reactions: No Reported Reaction Past Psychological History: No Psychological Hx Reported Smoking Status: Never smoker Past Alcohol Use History: None Reported Past Drug Use History: None Reported - Past Family History Father Family Medical History: Cancer Additional Family Medical History / Comment(s): esophageal Mother Family Medical History: CVA/TIA Sister(s) Family Medical History: Cancer Additional Family Medical History / Comment(s): COLON Medications and Allergies Home Medications Medication Instructions Recorded Confirmed Type Loratadine [Claritin] 10 mg PO DAILY 03/20/14 03/13/18 History Ascorbic Acid [Vitamin C] 500 mg PO DAILY 01/18/17 03/13/18 History Cholecalciferol [Vitamin D3] 1,000 unit PO DAILY 01/18/17 03/13/18 History Cyanocobalamin [Vitamin B-12] 500 mcg PO DAILY 01/18/17 03/13/18 History RABEprazole SODIUM [Aciphex] 20 mg PO DAILY 01/18/17 03/13/18 History Estradiol [Divigel] 1 packet TOPICAL DAILY 03/13/18 03/13/18 History Ibuprofen [Motrin Ib] 800 mg PO Q6H PRN 03/13/18 03/13/18 History Ondansetron [Zofran] 4 mg PO Q8HR PRN 03/13/18 03/13/18 History Allergies Allergy/AdvReac Type Severity Reaction Status Date / Time No Known Allergies Allergy Verified 03/13/18 14:10 Physical Exam Vitals: Vital Signs Temp Pulse Pulse Resp BP BP Pulse Ox 03/14/18 06:10 99.6 F 78 16 117/66 96 03/13/18 23:00 98.6 F 73 16 117/66 96 03/13/18 20:35 98.7 F 68 14 118/70 98 03/13/18 17:24 98.4 F 66 16 126/79 99 03/13/18 16:52 98.4 F 62 16 146/90 99 03/13/18 15:36 98.4 F 63 18 130/69 99 03/13/18 13:38 98.7 F 76 18 122/80 100 Intake and Output 03/13/18 03/14/18 03/14/18 22:59 06:59 14:59 Other: Voiding Method Toilet # Voids 2 1 # Emeses 1 General appearance: The patient is alert, oriented, in no acute distress. HET: Head is normocephalic and atraumatic. Pupils are equal and reactive. Oropharynx is clear without lesions. Neck: Supple without lymphadenopathy. Trachea midline. Heart: S1 S2. Regular rate and rhythm. Lungs: No crackles or wheezes are heard. Abdomen: Soft, mild midepigastric tenderness, nondistended with bowel sounds. No peritoneal signs. No palpable organomegaly or masses. Extremities: Normal skin color and turgor. No cyanosis, rash, ulceration, clubbing, or edema. Radial and pedal pulses are 2/4 bilaterally. Neurological: No focal deficits. Strength and sensation are grossly intact. Results CBC & Chem 7: 03/14/18 08:00 03/14/18 08:00 Labs: Abnormal Lab Results - Last 24 Hours (Table) 03/13/18 03/13/18 03/13/18 Range/Units 14:01 14:01 14:39 WBC 19.5 H (3.8-10.6) k/uL Plt Count (150-450) k/uL Neutrophils # 17.2 H (1.3-7.7) k/uL Sodium 135 L (137-145) mmol/L Glucose 100 H (74-99) mg/dL Calcium (8.4-10.2) mg/dL Total Protein (6.3-8.2) g/dL Albumin (3.5-5.0) g/dL Amylase 134 H (30-110) U/L Lipase 417 H (23-300) U/L Urine Ketones 1+ H (Negative) Ur Leukocyte Esterase Trace H (Negative) Urine RBC 7 H (0-5) /hpf Urine Bacteria Rare H (None) /hpf Urine Mucus Occasional H (None) /hpf 03/14/18 03/14/18 Range/Units 08:00 08:00 WBC 17.0 H (3.8-10.6) k/uL Plt Count 142 L (150-450) k/uL Neutrophils # 14.6 H (1.3-7.7) k/uL Sodium (137-145) mmol/L Glucose (74-99) mg/dL Calcium 8.3 L (8.4-10.2) mg/dL Total Protein 6.1 L (6.3-8.2) g/dL Albumin 3.3 L (3.5-5.0) g/dL Amylase (30-110) U/L Lipase (23-300) U/L Urine Ketones (Negative) Ur Leukocyte Esterase (Negative) Urine RBC (0-5) /hpf Urine Bacteria (None) /hpf Urine Mucus (None) /hpf CT scan - abdomen: report reviewed (Dr. Dan) Assessment and Plan (1) Acute pancreatitis Narrative/Plan: 52-year-old female with a history of cholecystectomy for bilary dyskinesia questionable stones sludge, idiopathic pancreatitis previously investigated at [facility] with unremarkable EUS. Presents with 2 day history of upper abdominal mid epigastric abdominal pain with mild elevation of pancreatic enzymes since resolved with normal LFTs consistent with acute pancreatitis. Current Visit: Yes Status: Acute Code(s): K85.90 - ACUTE PANCREATITIS WITHOUT NECROSIS OR INFECTION, UNSP SNOMED Code(s): 391183817 Plan: 1. IV hydration 125 mL an hour. Clear liquid diet. Symptomatic supportive measures. Patient could benefit from outpatient MRI pancreas if one has not been previously done. Will follow with you. Thank you for this kind referral and the opportunity to participate in the care of your patient. This consultation was discussed with Dr. Dan. The impression and plan of care have been directed as dictated.
[2018-03-14] MEDS: SODIUM CHLORIDE 0.9% 1,000 ML IV SCH ×2 (14:08→21:52)
[2018-03-15] MEDS: ONDANSETRON 4 MG/2 ML VIAL IVP PRN (01:53)
[2018-03-15] MEDS: MORPHINE SULFATE 4 MG/ML SYRINGE IV PRN ×2 (01:55→12:05)
--- NOTE | 2018-03-15 05:57 | PN ---
PROGRESS NOTE DATE OF SERVICE: 03/14/2018 PRESENTING COMPLAINT: Abdominal pain. INTERVAL HISTORY: This patient presented with flare-up of acute recurrent pancreatitis, felt to be idiopathic. Patient did tolerate some clear liquids today. Some improvement of abdominal pain, less nausea. Has been out of bed. REVIEW OF SYSTEMS: Done for constitutional, cardiovascular, GI, pulmonary; relevant findings as above. CURRENT MEDICATIONS: Current medications are reviewed that include IV fluids. PHYSICAL EXAMINATION: On examination, afebrile, pulse 78, respiration 16, blood pressure 119/65, pulse ox 99% on room air. GENERAL APPEARANCE: Sitting up on bed, appears better. EYES: Pupils equal. Conjunctivae normal. HENT: External appearance of nose and ears normal. Oral cavity normal. NECK: JVD not raised. Mass not palpable. RESPIRATORY: Effort normal. Lungs are clear. CARDIOVASCULAR: First and second sounds normal. No edema. ABDOMEN: Epigastric tenderness decreased. No guarding or rigidity. Liver and spleen not palpable. PSYCHIATRY: Alert and oriented x3. Mood and affect normal. INVESTIGATIONS: White count 17, potassium 3.7. Amylase and lipase normal. ASSESSMENT: 1. Acute recurrent pancreatitis, now labeled as idiopathic with clinical improvement with down to normal. 2. Leukocytosis secondary to above. 3. Gastroesophageal reflux disease. PLAN: Continue current medication and treatment plan. The patient did start with clear liquids this afternoon, see how she does. Encouraged to ambulate. MMODL / IJN: [id number] /
[2018-03-15] MEDS: SODIUM CHLORIDE 0.9% 1,000 ML IV SCH ×2 (06:16→14:39)
[2018-03-15 07:10] VITALS: BP 110/77; PULSE 69; RESP 16; TEMP 97.5
[2018-03-15] MEDS: ENOXAPARIN 40 MG/0.4 ML SYRINGE SQ SCH (08:21)
[2018-03-15] MEDS: PANTOPRAZOLE 40 MG TABLET PO SCH (08:21)
[2018-03-15] MEDS: ESTRADIOL TOPICAL SCH (08:22)
--- NOTE | 2018-03-15 11:34 | P.PN ---
Subjective Progress Note Date: 03/15/18 Principal diagnosis: Acute on chronic idiopathic pancreatitis 52-year-old female with a history of long-standing acute on chronic idiopathic pancreatitis EUS 2017. Reports improvement in pain. Pancreatic enzymes normalized. Tolerating clear liquids. Objective - Vital Signs Vital signs: Vital Signs Temp 97.5 F L 03/15/18 07:00 Pulse 69 03/15/18 07:00 Resp 16 03/15/18 07:00 BP 110/77 03/15/18 07:00 Pulse Ox 99 03/15/18 07:00 Intake & Output 03/14/18 03/15/18 03/15/18 18:59 06:59 18:59 Other: Voiding Method Toilet # Voids 2 1 - Exam General appearance: The patient is alert, oriented, in no acute distress. HET: Head is normocephalic and atraumatic. Pupils are equal and reactive. Oropharynx is clear without lesions. Neck: Supple without lymphadenopathy. Trachea midline. Heart: S1 S2. Regular rate and rhythm. Lungs: No crackles or wheezes are heard. Abdomen: Soft, mild midepigastric tenderness, nondistended with bowel sounds. No peritoneal signs. No palpable organomegaly or masses. Extremities: Normal skin color and turgor. No cyanosis, rash, ulceration, clubbing, or edema. Radial and pedal pulses are 2/4 bilaterally. Neurological: No focal deficits. Strength and sensation are grossly intact. - Labs CBC & Chem 7: 03/14/18 08:00 03/14/18 08:00 Assessment and Plan (1) Acute pancreatitis Narrative/Plan: 52-year-old female with a history of cholecystectomy for bilary dyskinesia questionable stones sludge, idiopathic pancreatitis previously investigated at [facility] with unremarkable EUS. Presents with 2 day history of upper abdominal mid epigastric abdominal pain with mild elevation of pancreatic enzymes since resolved with normal LFTs consistent with acute pancreatitis. Current Visit: Yes Status: Acute Code(s): K85.90 - ACUTE PANCREATITIS WITHOUT NECROSIS OR INFECTION, UNSP SNOMED Code(s): 039601989 Plan: 1. Dr. Dan recommends inpatient MRI pancreas with and without contrast before discharge. Patient may be discharged after MRI is completed. Advance to low-fat diet after MRI. Return to office in 3-4 weeks for reevaluation. Assessment and plan a care discussed with Dr. Dan
--- NOTE | 2018-03-15 12:51 | CT ---
CT CHEST FOR PULMONARY EMBOLISM. EXAMINATION TYPE: CT angio chest DATE OF EXAM: 03/15/2018 INDICATION: SOB CT DLP: 302.6 mGycm, Automated exposure control for dose reduction was used. CONTRAST: Patient injected with 100 mL of Isovue 370. COMPARISON: CT abdomen pelvis 03/13/2018 TECHNIQUE: CT of the chest is performed on a spiral scan at 2 mm thick sections. Study is performed with intravenous contrast timed for evaluation for pulmonary embolism. This will limit additional po rtions of the evaluation. 3-D MIP images reconstructed by the technologist are reviewed on the compu ter in the coronal and sagittal planes. FINDINGS: No persistent filling defects are evident to suggest an acute pulmonary embolism. No mediastinal or hilar adenopathy enlarged by CT criteria is evident. The ascending aorta diameter at the level of the main pulmonary artery is 3.6 cm. The main pulmonary artery diameter at the bifur cation is 2.7 cm. No suspicious masses or consolidations are evident. Some mild compressive atelectasis appears to be t o within the dependent portions of the lung bases bilaterally. Limited CT sections are obtained through the upper abdomen. There is a 2.4 cm hypodensity within the superior medial right lobe liver measuring 22 Hounsfield units. IMPRESSIONS: 1. No acute pulmonary embolism. 2. Hepatic cyst previously identified.
--- NOTE | 2018-03-15 17:42 | MR ---
EXAMINATION TYPE: MR pancreas wo/w con DATE OF EXAM: 03/15/2018 COMPARISON: HISTORY: chronic pancreatitis CONTRAST: Standard multiplanar, multisequence MRI departmental protocol utilizing 7.5 mL intravenous Gadavist g adolinium contrast. FINDINGS: There is a 2 cm cystic area in the anterior right lobe of the liver.. Bile ducts are not di lated. There are numerous small cystic areas in the spleen. There is mild infiltrate and pleural reac tion at the right posterior lung base. There is no pericardial effusion. There is no pleural effusion . Pancreatic duct is not dilated. There is however some bulkiness of the posterior aspect of the panc reatic head that measures 3.3 cm. There is mixed signal pattern with areas of cystic change. These me asure up to 5 mm. There is slight increased enhancement of this area compared to the remainder of the pancreas. There is no adrenal mass. Kidneys have normal size and contour. There is no hydronephrosis. There is no sign of retroperitoneal adenopathy. IMPRESSION: There is some bulkiness of the posterior pancreatic head that is nonspecific. There is inhomogeneous enhancement and minimal cystic change. I would consider both focal pancreatitis as well as tumor. Fol low-up is recommended. The lack of any significant surrounding fluid is more suggestive of tumor. Mild pleural reaction at the right lung base.
--- NOTE | 2018-03-17 08:37 | DS ---
DISCHARGE SUMMARY DATE OF ADMISSION: 03/13/18. DATE OF DISCHARGE: 03/15/18. FINAL DIAGNOSES: 1. Acute recurrent pancreatitis now labeled as idiopathic. 2. Leukocytosis due to above. 3. Gastroesophageal reflux disease. HOSPITAL COURSE: This patient has had recurrent pancreatitis yet again with presentation as above. The patient has been down at [facility] where she had an ultrasound biopsy and ruled out idiopathic pancreatitis. The patient had a MRI before leaving that will be reviewed by Dr. Dan in the clinical context. Patient was doing better at the time of discharge. Abdomen pain had greatly resolved. Patient is tolerating a diet. On examination, afebrile. Blood pressure 110/77, pulse 69. Abdomen: Soft, nontender. The patient's pancreatic enzymes have come back to normal. Pancreatic MRI results will be done in the clinical context by Dr. Dan. DISCHARGE MEDICATIONS: 1. Claritin 10 mg a day. 2. Vitamin C 500 mg a day. 3. Vitamin D3 1000 units p.o. daily. 4. Vitamin B12 500 mcg p.o. daily. 5. AcipHex 20 mg p.o. daily. 6. Divigel 1 packet topical daily. 7. Motrin 800 mg q.6h p.r.n. 8. Zofran 4 mg q.8h p.r.n. Follow with Dr. Mina Brower in [place] on 03/18/18, Dr. William Dan on 04/09/18. Diet low-fat. Care was discussed with the patient and . MMODL / IJN: [id number] /
== END 2018-03-15 17:15 | disposition home or self-care (01) | DRG 440 ==
LOC: EC 13:06 → 4MS4W 16:25
PROVIDERS: ADMIT Hospitalist; ATTEND Hospitalist
DX: K85.00 Idiopathic acute pancreatitis without necrosis or infection (principal); K86.1 Other chronic pancreatitis; K21.9 Gastro-esophageal reflux disease without esophagitis; Z79.899 Other long term (current) drug therapy; Z87.01 Personal history of pneumonia (recurrent); Z87.11 Personal history of peptic ulcer disease; Z86.19 Personal history of other infectious and parasitic diseases; Z90.49 Acquired absence of other specified parts of digestive tract; Z90.710 Acquired absence of both cervix and uterus; Z80.0 Family history of malignant neoplasm of digestive organs; Z82.3 Family history of stroke
CPT/HCPCS: 36415; 71275; 74018; 74177; 74183; 80053; 81001; 82150; 83690; 85025; 93005; 96361; 96374; 96375; 96376; 99285

== ENCOUNTER → 2018-05-02 | Outpatient (CLI) | payer OTHER ==
[2018-05-02 15:53] LABS: Amylase 56 U/L (23-121); Lipase 27 U/L (14-63)
== END | disposition home or self-care (01) ==
LOC: LABWHC1 07:18
DX: K86.1 Other chronic pancreatitis (principal)
CPT/HCPCS: 36415; 82150; 83690; 86301

== ENCOUNTER → 2018-05-20 | Outpatient (CLI) | payer OTHER ==
--- NOTE | 2018-05-20 09:16 | MR ---
EXAMINATION TYPE: MR pancreas wo/w con DATE OF EXAM: 05/20/2018 COMPARISON: MRI pancreas March 15, 2018. CT abdomen and pelvis March 13, 2018 and older CTs. HISTORY: Chronic pancreatitis per order. CONTRAST: Standard multiplanar, multisequence MRI departmental protocol utilizing 8.5 mL intravenous Gadavist g adolinium contrast. FINDINGS: PANCREAS: There is marked improvement in size and definition of pancreas versus older CTs, there is l ess bulkiness and haziness of the margins. Pancreatic duct is visualized but not suspiciously enlarge d. Slight prominence in the head and uncinate process remains present with heterogeneity but no new s uspicious solid or cystic masses identified. There is stable thin-walled cyst or cystic lesion involv ing posterior aspect of the mid to distal body without abnormal enhancement measuring roughly 9 x 6 m m x 9 axial image 22 and coronal image 16. This is not significantly changed in size or appearance fr om prior MRI. No new suspicious lesions are evident. No new surrounding fluid or enhancement is noted . OTHER: There is redemonstration of 1.7 cm simple appearing cyst left hepatic lobe centrally axial danay ge 33. There is stable subcentimeter peripheral cyst right hepatic lobe axial image 31. Gallbladder i s noted surgically absent. No biliary dilatation is present. Lung bases are clear. Kidneys and both adrenal glands appear stable and unremarkable. Spleen overall redemonstrates heterogeneity with multiple T2 hyperintense lesions majority subcentime ter in size some demonstrate enhancement with filling suggesting hemangiomas some demonstrate nonenha ncement consistent with thin-walled cysts, there is a delayed rim-enhancing lesion in the posterior m edial aspect of uncertain etiology seen best area 701 image 320 measuring 1.1 cm. No suspicious bowel dilatation is present. No concerning abdominal fluid collection is seen. Osseous structures are intact. IMPRESSION: Improvement in overall diffuse bulkiness from 2014 CT. Some persistent fullness in the head region is unchanged from most recent studies. Correlate clinically for IgG4 related disease. Consider annual M RI surveillance. Nonspecific splenic lesions may be related to IgG4 process.
== END ==
LOC: RADMRIMAIN 05:56
DX: K86.1 Other chronic pancreatitis (principal)
CPT/HCPCS: 74183; A9585

== ENCOUNTER 2018-08-27 07:03 | Inpatient (IN) | payer OTHER ==
[2018-08-27] MEDS ORDERED: MORPHINE SULFATE 4 MG/ML SYRINGE IV STA ×2 (07:19→09:05)
[2018-08-27] MEDS ORDERED: SODIUM CHLORIDE 0.9% 1,000 ML IV STA (07:19)
[2018-08-27] MEDS ORDERED: ONDANSETRON 4 MG/2 ML VIAL IVP STA ×2 (07:19→09:05)
--- NOTE | 2018-08-27 07:22 | ED ---
General Adult HPI - General Chief complaint: Abdominal Pain Stated complaint: abd pain, vomiting Time Seen by Provider: 08/27/18 07:16 Source: patient, RN notes reviewed, old records reviewed Mode of arrival: wheelchair Limitations: no limitations - History of Present Illness Initial comments: Patient 52-year-old female significant past medical history of pink or tenderness, presented to the emergency room today with a chief complaint of abdominal pain that started last approximate 6 PM. Does admit to episodes nausea vomiting. Denies any signs of blood. Patient does admit that the symptoms feel consistent with pink or tenderness that she's had in the past. She states her last flare up was back in March 2018. Patient states history of idiopathic pancreatitis. She does admit to previous cholecystectomy. Denies any other complaints or symptoms at this time. Patient denies any recent fever, chills, shortness of breath, chest pain, back pain, numbness or tingling, headaches or visual changes, or any other complaints. - Related Data Home Medications Medication Instructions Recorded Confirmed Loratadine [Claritin] 10 mg PO DAILY 03/20/14 08/27/18 Ascorbic Acid [Vitamin C] 500 mg PO DAILY 01/18/17 08/27/18 Cholecalciferol [Vitamin D3] 1,000 unit PO DAILY 01/18/17 08/27/18 Cyanocobalamin [Vitamin B-12] 500 mcg PO DAILY 01/18/17 08/27/18 RABEprazole SODIUM [Aciphex] 20 mg PO DAILY 01/18/17 08/27/18 Estradiol [Divigel] 1 gm TOPICAL DAILY 03/13/18 08/27/18 Allergies Allergy/AdvReac Type Severity Reaction Status Date / Time No Known Allergies Allergy Verified 08/27/18 08:58 Review of Systems ROS Statement: Those systems with pertinent positive or pertinent negative responses have been documented in the HPI. ROS Other: All systems not noted in ROS Statement are negative. 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 Pylori History of Any Multi-Drug Resistant Organisms: None Reported Past Surgical History: Appendectomy, Breast Surgery, Cholecystectomy, Hysterectomy Additional Past Surgical History / Comment(s): uterine fibroid removed, lumpectomy left benign Past Anesthesia/Blood Transfusion Reactions: No Reported Reaction Past Psychological History: No Psychological Hx Reported Smoking Status: Never smoker Past Alcohol Use History: None Reported Past Drug Use History: None Reported - Past Family History Father Family Medical History: Cancer Additional Family Medical History / Comment(s): esophageal Mother Family Medical History: CVA/TIA Sister(s) Family Medical History: Cancer Additional Family Medical History / Comment(s): COLON General Exam - General Exam Comments Initial Comments: General: The patient is awake and alert, in no distress, and does not appear acutely ill. Eye: There is normal conjunctiva bilaterally. No signs of icterus. Ears, nose, mouth and throat: There are moist mucous membranes and no oral lesions. Neck: The neck is supple, there is no tenderness or JVD. Cardiovascular: There is a regular rate and rhythm. No murmur, rub or gallop is appreciated. Respiratory: Lungs are clear to auscultation, respirations are non-labored, breath sounds are equal. No wheezes, stridor, rales, or rhonchi. Gastrointestinal: Abdomen soft on palpation. Patient does have tenderness epigastric mild tenderness left upper quadrant. No rebound, guarding or CVA tenderness. Musculoskeletal: Normal ROM, no tenderness. Neurological: A&O x 3. CN II-XII intact, There are no obvious motor or sensory deficits. Coordination appears grossly intact. Speech is normal. Skin: Skin is warm and dry and no rashes or lesions are noted. Psychiatric: Cooperative, appropriate mood & affect, normal judgment. Limitations: no limitations Course Vital Signs 08/27/18 07:08 Temperature 97.8 F Pulse Rate 64 Respiratory 18 Rate Blood Pressure 121/86 O2 Sat by Pulse 99 Oximetry Medical Decision Making - Medical Decision Making Patient's amylase lipase are elevated here in the emergency room. She been diagnosed with pancreatitis in the past. Patient did have an MRI in May this past year. Patient's white count elevated 16,000. Pain is in the upper abdomen consistent with panic attacks that she's had before. Patient will be admitted to the hospital continued on IV fluids and pain medication. - Lab Data Result diagrams: 08/27/18 07:27 08/27/18 07:27 Lab Results 08/27/18 08/27/18 08/27/18 Range/Units 07:27 07:27 07:35 WBC 16.2 H (3.8-10.6) k/uL RBC 4.88 (3.80-5.40) m/uL Hgb 14.6 (11.4-16.0) gm/dL Hct 44.2 (34.0-46.0) % MCV 90.5 (80.0-100.0) fL MCH 29.9 (25.0-35.0) pg MCHC 33.1 (31.0-37.0) g/dL RDW 13.7 (11.5-15.5) % Plt Count 141 L (150-450) k/uL Neutrophils % 90 % Lymphocytes % 5 % Monocytes % 4 % Eosinophils % 1 % Basophils % 0 % Neutrophils # 14.6 H (1.3-7.7) k/uL Lymphocytes # 0.8 L (1.0-4.8) k/uL Monocytes # 0.6 (0-1.0) k/uL Eosinophils # 0.1 (0-0.7) k/uL Basophils # 0.0 (0-0.2) k/uL Sodium 139 (137-145) mmol/L Potassium 3.9 (3.5-5.1) mmol/L Chloride 102 (98-107) mmol/L Carbon Dioxide 27 (22-30) mmol/L Anion Gap 10 mmol/L BUN 16 (7-17) mg/dL Creatinine 0.72 (0.52-1.04) mg/dL Est GFR (CKD-EPI)AfAm >90 (>60 ml/min/1.73 sqM) Est GFR (CKD-EPI)NonAf >90 (>60 ml/min/1.73 sqM) Glucose 123 H (74-99) mg/dL Calcium 9.1 (8.4-10.2) mg/dL Total Bilirubin 0.7 (0.2-1.3) mg/dL AST 17 (14-36) U/L ALT 23 (9-52) U/L Alkaline Phosphatase 89 (38-126) U/L Total Protein 7.2 (6.3-8.2) g/dL Albumin 4.1 (3.5-5.0) g/dL Amylase 708 H* (30-110) U/L Lipase 5199 H (23-300) U/L Urine Color Yellow Urine Appearance Cloudy H (Clear) Urine pH 7.5 (5.0-8.0) Ur Specific [place] 1.025 (1.001-1.035) Urine Protein 1+ H (Negative) Urine Glucose (UA) Negative (Negative) Urine Ketones 1+ H (Negative) Urine Blood Negative (Negative) Urine Nitrite Negative (Negative) Urine Bilirubin Negative (Negative) Urine Urobilinogen <2.0 (<2.0) mg/dL Ur Leukocyte Esterase Small H (Negative) Urine WBC 4 (0-5) /hpf Ur Squamous Epith Cells 6 H (0-4) /hpf Urine Bacteria Occasional H (None) /hpf Urine Mucus Rare H (None) /hpf Disposition Clinical Impression: Acute pancreatitis Disposition: ADMITTED IP TO THIS HOSP Condition: Stable Is patient prescribed a controlled substance at d/c from ED?: No Referrals: Mina Brower MD [Primary Care Provider] - 1-2 days Time of Disposition: 09:05
[2018-08-27 07:52] LABS: Appearance,Urine Cloudy (Clear); Bacteria,Urine Occasional /hpf; Bilirubin,Urine Negative (Negative); Blood,Urine Negative (Negative); Color,Urine Yellow; Glucose,Urine (UA) Negative (Negative); Ketones,Urine 1+ (Negative); Leukocyte Esterase,Urine Small (Negative); Mucus,Urine Rare /hpf; Nitrite,Urine Negative (Negative); PH, Urine 7.5 (5.0-8.0); Protein,Urine 1+ (Negative); Specific Gravity,Urine 1.025 (1.001-1.035); Squamous Epithelial Cell,Urine 6 /hpf (0-4); Urobilinogen,Urine <2.0 mg/dL (<2.0); WBC,Urine 4 /hpf (0-5)
[2018-08-27 08:00] LABS: Basophils % (A) 0 %; Eosinophils # (A) 0.1 k/uL (0-0.7); Eosinophils % (A) 1 %; HCT 44.2 % (34.0-46.0); HGB 14.6 gm/dL (11.4-16.0); Lymphocytes # (A) 0.8 k/uL (1.0-4.8); Lymphocytes % (A) 5 %; MCH 29.9 pg (25.0-35.0); MCHC 33.1 g/dL (31.0-37.0); MCV 90.5 fL (80.0-100.0); Mean Platelet Volume 7.5; Monocytes # (A) 0.6 k/uL (0-1.0); Monocytes % (A) 4 %; Neutrophils # (A) 14.6 k/uL (1.3-7.7); Neutrophils % (A) 90 %; Platelet Count 141 k/uL (150-450); RBC 4.88 m/uL (3.80-5.40); RDW 13.7 % (11.5-15.5); WBC 16.2 k/uL (3.8-10.6)
[2018-08-27 08:20] LABS: ALT 23 U/L (9-52); AST 17 U/L (14-36); Albumin 4.1 g/dL (3.5-5.0); Alkaline Phosphatase 89 U/L (38-126); Anion Gap 10 mmol/L; Blood Urea Nitrogen 16 mg/dL (7-17); Calcium 9.1 mg/dL (8.4-10.2); Carbon Dioxide 27 mmol/L (22-30); Chloride 102 mmol/L (98-107); Glucose 123 mg/dL (74-99); Potassium 3.9 mmol/L (3.5-5.1); Sodium 139 mmol/L (137-145); Total Bilirubin 0.7 mg/dL (0.2-1.3); Total Protein 7.2 g/dL (6.3-8.2)
[2018-08-27 08:45] LABS: Amylase 708 U/L (30-110); Lipase 5199 U/L (23-300)
[2018-08-27] MEDS ORDERED: MORPHINE SULFATE 4 MG/ML SYRINGE IV PRN (09:13)
[2018-08-27] MEDS ORDERED: NALOXONE 0.4 MG/ML 1 ML VIAL IV PRN (09:13)
[2018-08-27] MEDS ORDERED: ONDANSETRON 4 MG/2 ML VIAL IVP PRN (09:13)
[2018-08-27] MEDS: SODIUM CHLORIDE 0.9% 1,000 ML IV ONE (09:30)
[2018-08-27] MEDS ORDERED: PANTOPRAZOLE 40 MG/10 ML VIAL IVP ONE (13:02)
[2018-08-27] MEDS: ONDANSETRON 4 MG/2 ML VIAL IVP PRN ×3 (13:59→21:10)
[2018-08-27] MEDS: HYDROmorphone 1 MG/ML 1 ML SYRINGE IVP PRN ×2 (13:59→18:59)
[2018-08-27 15:43] VITALS: BMI 30.6
--- NOTE | 2018-08-27 18:47 | P.HPIM ---
History of Present Illness H&P Date: 08/27/18 Chief Complaint: Abdominal pain with nausea and vomiting , history of recurrent pancreatitis The patient is a 52-year-old female with a past medical history of GERD and recurrent idiopathic pancreatitis presents to the ER via private vehicle with her with chief complaint of severe epigastric pain. The patient reports she began having moderate epigastric pain associated with nausea and vomiting yesterday gradually progressing in severity up to a 10 out of 10, the patient reports the inability to keep food or liquids down. She denies any history of alcohol intake or abuse, though she reports previously having her gallbladder removed. Apparently she has been previously worked up at the [facility] and had endoscopic ultrasound and was told to follow-up with her local GI DrBilly Oseguera. The patient has had several hospitalizations for recurrent pancreatitis. Review of records indicates patient's previous MRI of the pancreas indicated improvement in the overall bulkiness with some persistent fullness in the head region That was unchanged. Suggesting possible correlation for IGG related disease with consideration for annual MRI surveillance In the ER workup was consistent with elevated serum lipase of 5199. In a leukocytosis of 16.2. 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 Pylori History of Any Multi-Drug Resistant Organisms: None Reported Past Surgical History: Appendectomy, Breast Surgery, Cholecystectomy, Hysterectomy Additional Past Surgical History / Comment(s): uterine fibroid removed, lumpectomy left benign Past Anesthesia/Blood Transfusion Reactions: No Reported Reaction Past Psychological History: No Psychological Hx Reported Smoking Status: Never smoker Past Alcohol Use History: None Reported Past Drug Use History: None Reported - Past Family History Father Family Medical History: Cancer Additional Family Medical History / Comment(s): esophageal Mother Family Medical History: CVA/TIA Sister(s) Family Medical History: Cancer Additional Family Medical History / Comment(s): COLON Medications and Allergies Home Medications Medication Instructions Recorded Confirmed Type Loratadine [Claritin] 10 mg PO DAILY 03/20/14 08/27/18 History Ascorbic Acid [Vitamin C] 500 mg PO DAILY 01/18/17 08/27/18 History Cholecalciferol [Vitamin D3] 1,000 unit PO DAILY 01/18/17 08/27/18 History Cyanocobalamin [Vitamin B-12] 500 mcg PO DAILY 01/18/17 08/27/18 History RABEprazole SODIUM [Aciphex] 20 mg PO DAILY 01/18/17 08/27/18 History Estradiol [Divigel] 1 gm TOPICAL DAILY 03/13/18 08/27/18 History Allergies Allergy/AdvReac Type Severity Reaction Status Date / Time No Known Allergies Allergy Verified 08/27/18 13:21 Physical Exam Vitals: Vital Signs Temp Pulse Pulse Resp BP BP Pulse Ox 08/27/18 11:25 98.6 F 67 18 113/74 96 08/27/18 10:55 98.8 F 69 18 128/79 98 08/27/18 09:15 97.8 F 63 18 127/88 99 08/27/18 07:08 97.8 F 64 18 121/86 99 Intake and Output 08/26/18 08/27/18 08/27/18 22:59 06:59 14:59 Other: Weight 83.915 kg Constitutional: No acute distress, conversant, pleasant Eyes: Anicteric sclerae, moist conjunctiva, no lid-lag, PERRLA ENMT: NC/AT,Oropharynx clear, no erythema, exudates Neck:Supple, FROM, no masses, or JVD, No carotid bruits; No thyromegaly Lungs: Clear to auscultation, Clear to percussion, Normal respiratory effort, no accessory muscle use Cardiovascular: Heart regular in rate and rhythm, No murmurs, gallops, or rubs no peripheral edema Abdominal: Soft tender to palpation around the umbilicus up to the mid epigastrium, nom distended, no guarding, no rebound or rigidity, hypoactive bowel sounds Skin: Normal temperature, tone, texture, turgor, No induration No subcutaneous nodules, No rash, lesions, No ulcers Extremities:No digital cyanosis No clubbing, Pedal pulses intact and symmetrical Radial pulses intact and symmetrical Normal gait and station, No calf tenderness Psychiatric: Alert and oriented to person, place and time, Appropriate affect Intact judgement Neuro: Muscles Strength 5/5 in all 4 extremities, Sensation to light touch grossly present throughout, Cranial nerves II-XII grossly intact. No focal sensory deficits Results CBC & Chem 7: 08/28/18 07:04 08/28/18 07:04 Labs: Abnormal Lab Results - Last 24 Hours (Table) 08/27/18 08/27/18 08/27/18 Range/Units 07:27 07:27 07:35 WBC 16.2 H (3.8-10.6) k/uL Plt Count 141 L (150-450) k/uL Neutrophils # 14.6 H (1.3-7.7) k/uL Lymphocytes # 0.8 L (1.0-4.8) k/uL Glucose 123 H (74-99) mg/dL Amylase 708 H* (30-110) U/L Lipase 5199 H (23-300) U/L Urine Appearance Cloudy H (Clear) Urine Protein 1+ H (Negative) Urine Ketones 1+ H (Negative) Ur Leukocyte Esterase Small H (Negative) Ur Squamous Epith Cells 6 H (0-4) /hpf Urine Bacteria Occasional H (None) /hpf Urine Mucus Rare H (None) /hpf Assessment and Plan (1) Idiopathic acute pancreatitis Current Visit: Yes Status: Acute Code(s): K85.00 - IDIOPATHIC ACUTE PANCREATITIS WITHOUT NECROSIS OR INFECTION SNOMED Code(s): 334351831 (2) Leukocytosis Current Visit: Yes Status: Acute Code(s): D72.829 - ELEVATED WHITE BLOOD CELL COUNT, UNSPECIFIED SNOMED Code(s): 160039935 Plan: The patient is admitted anticipated greater than 2 midnight stay with acute recurrent idiopathic pancreatitis. The patient is made nothing by mouth started on IV fluids with supportive therapy with Zofran and IV Dilaudid for nausea and an analgesic therapy respectively. Serum lipase 5199 we'll continue to follow, previous MRI reviewed. Plan to consult GI Dr. Berman for any ongoing recommendations. Noted leukocytosis in the setting of acute pancreatitis likely due to acute phase stress response, patient currently afebrile. We'll continue to follow her clinical course and monitor. CODE STATUS Full code Anticipated discharge 2-3 days Discussed medical care with patient and DVT prophylaxis SCDs/Lovenox and GI prophylaxis Protonix IV
[2018-08-28] MEDS: SODIUM CHLORIDE 0.9% 1,000 ML IV ONE (00:31)
[2018-08-28] MEDS: ONDANSETRON 4 MG/2 ML VIAL IVP PRN ×4 (01:06→14:49)
[2018-08-28] MEDS: HYDROmorphone 1 MG/ML 1 ML SYRINGE IVP PRN ×7 (01:06→21:59)
[2018-08-28 07:33] LABS: Basophils % (A) 0 %; Eosinophils # (A) 0.1 k/uL (0-0.7); Eosinophils % (A) 0 %; HCT 39.9 % (34.0-46.0); HGB 13.3 gm/dL (11.4-16.0); Lymphocytes # (A) 0.7 k/uL (1.0-4.8); Lymphocytes % (A) 4 %; MCH 30.6 pg (25.0-35.0); MCHC 33.4 g/dL (31.0-37.0); MCV 91.4 fL (80.0-100.0); Mean Platelet Volume 7.7; Monocytes % (A) 5 %; Neutrophils # (A) 16.9 k/uL (1.3-7.7); Neutrophils % (A) 90 %; Platelet Count 126 k/uL (150-450); RBC 4.36 m/uL (3.80-5.40); RDW 13.7 % (11.5-15.5); WBC 18.8 k/uL (3.8-10.6)
[2018-08-28 07:46] LABS: ALT 23 U/L (9-52); AST 17 U/L (14-36); Albumin 3.3 g/dL (3.5-5.0); Alkaline Phosphatase 74 U/L (38-126); Anion Gap 7 mmol/L; Blood Urea Nitrogen 13 mg/dL (7-17); Calcium 8.2 mg/dL (8.4-10.2); Carbon Dioxide 25 mmol/L (22-30); Chloride 105 mmol/L (98-107); Glucose 86 mg/dL (74-99); Potassium 3.7 mmol/L (3.5-5.1); Sodium 137 mmol/L (137-145); Total Bilirubin 0.7 mg/dL (0.2-1.3); Total Protein 6.2 g/dL (6.3-8.2)
[2018-08-28 07:54] LABS: Lipase 2108 U/L (23-300)
[2018-08-28] MEDS: PANTOPRAZOLE 40 MG/10 ML VIAL IVP SCH (09:01)
[2018-08-28] MEDS: ENOXAPARIN 40 MG/0.4 ML SYRINGE SQ SCH (09:24)
--- NOTE | 2018-08-28 11:29 | P.PN ---
Subjective Progress Note Date: 08/28/18 Patient seen and examined at bedside, reporting that pain is only controlled for approximately 3 hours, reports that her vomiting has resolved but still having persistent nausea. Currently does not have an appetite. Denies any subjective fevers or chills. Objective - Vital Signs Vital signs: Vital Signs Temp 99.8 F H 08/28/18 08:07 Pulse 90 08/28/18 08:07 Resp 20 08/28/18 08:07 BP 105/64 08/28/18 08:07 Pulse Ox 94 L 08/28/18 08:07 Intake & Output 08/27/18 08/28/18 08/28/18 18:59 06:59 18:59 Output Total 60 Balance -60 Weight 83.915 kg Output: Emesis 60 Other: # Voids 2 - Exam Constitutional: No acute distress, conversant, pleasant Eyes: Anicteric sclerae, moist conjunctiva, no lid-lag, PERRLA ENMT: NC/AT,Oropharynx clear, no erythema, exudates Neck:Supple, FROM, no masses, or JVD, No carotid bruits; No thyromegaly Lungs: Clear to auscultation, Clear to percussion, Normal respiratory effort, no accessory muscle use Cardiovascular: Heart regular in rate and rhythm, No murmurs, gallops, or rubs no peripheral edema Abdominal: Soft ttp in epigastric area, hypoactive bowel sounds Skin: Normal temperature, tone, texture, turgor, No induration No subcutaneous nodules, No rash, lesions, No ulcers Extremities:No digital cyanosis No clubbing, Pedal pulses intact and symmetrical Radial pulses intact and symmetrical Normal gait and station, No calf tenderness Psychiatric: Alert and oriented to person, place and time, Appropriate affect Intact judgement Neuro: Muscles Strength 5/5 in all 4 extremities, Sensation to light touch grossly present throughout, Cranial nerves II-XII grossly intact. No focal sensory deficits - Labs CBC & Chem 7: 08/28/18 07:04 08/28/18 07:04 Labs: Abnormal Lab Results - Last 24 Hours (Table) 08/28/18 08/28/18 Range/Units 07:04 07:04 WBC 18.8 H (3.8-10.6) k/uL Plt Count 126 L (150-450) k/uL Neutrophils # 16.9 H (1.3-7.7) k/uL Lymphocytes # 0.7 L (1.0-4.8) k/uL Calcium 8.2 L (8.4-10.2) mg/dL Total Protein 6.2 L (6.3-8.2) g/dL Albumin 3.3 L (3.5-5.0) g/dL Lipase 2108 H (23-300) U/L Assessment and Plan (1) Idiopathic acute pancreatitis Narrative/Plan: * Continue current treatment and maintain nothing by mouth status lipase trending down from 5199 to 2108 * GI consult pending * Increased Dilaudid frequency to 1 mg every 3 hours when necessary * Continue with the Zofran and IV fluids Current Visit: Yes Status: Acute Code(s): K85.00 - IDIOPATHIC ACUTE PANCREATITIS WITHOUT NECROSIS OR INFECTION SNOMED Code(s): 505118683 (2) Leukocytosis Narrative/Plan: * Likely acute phase reactant patient afebrile we'll continue to monitor * We'll check a chest x-ray Current Visit: Yes Status: Acute Code(s): D72.829 - ELEVATED WHITE BLOOD CELL COUNT, UNSPECIFIED SNOMED Code(s): 427481512 Plan: Disposition * Continue current treatment plan lipase is trending in the right direction, plan to advance diet and patient's nausea has resolved * Anticipated discharge 1-2 days
[2018-08-28] MEDS: SODIUM CHLORIDE 0.9% 1,000 ML IV SCH ×2 (13:22→22:00)
[2018-08-28] MEDS ORDERED: SCOPOLAMINE 1.5MG/72HR PATCH TRANSDERM STA (15:20)
--- NOTE | 2018-08-28 15:21 | P.CONS ---
History of Present Illness - Reason for Consult Consult date: 08/28/18 Pancreatitis Requesting physician: Brandi Sellers - Chief Complaint Abdominal pain - History of Present Illness 52 year female with a history of long-standing acute on chronic idiopathic pancreatitis previously evaluated at [facility] with EUS, cholecystectomy admitted with acute abdominal pain elevated pancreatic enzymes. Lipase 5199. Amylase 708. LFTs normal. Presently lipase is 2108. White count 18.8. Hemoglobin 13.3. Platelet 126. BUN 16. Creatinine 0.7. Glucose 123. MRI pancreas May 2018 improvement in overall diffuse bulkiness from previous CT in 2013. Persistent fullness in the head region of the pancreas unchanged from previous studies. Correlate for IgG4 related disease. Review of Systems Constitutional: Denies fever, chills, sweats, weight gain, or loss. HEENT: Negative for migraines, blurred vision or loss, earaches, drainage, tinnitus, oral mucosal lesions, dysphagia, or odynophagia. CARDIAC: Negative for chest pain, arrhythmias, or palpitation. RESPIRATORY: Negative for shortness of breath, hemoptysis, cough, or sputum production. GI: See HPI for pertinent findings. : Negative for hematuria, urgency, frequency, polyuria, or dysuria. GYNc: Negative vaginal discharge. MUSCULOSKELETAL: Negative for muscle aches, swelling, arthritis, and arthralgias. NEUROLOGIC: Negative for stroke or TIA. ENDOCRINE: Negative for thyroid problems. SKIN: Negative for rash or itching. 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 Pylori History of Any Multi-Drug Resistant Organisms: None Reported Past Surgical History: Appendectomy, Breast Surgery, Cholecystectomy, Hysterectomy Additional Past Surgical History / Comment(s): uterine fibroid removed, lumpectomy left benign Past Anesthesia/Blood Transfusion Reactions: No Reported Reaction Past Psychological History: No Psychological Hx Reported Smoking Status: Never smoker Past Alcohol Use History: None Reported Past Drug Use History: None Reported - Past Family History Father Family Medical History: Cancer Additional Family Medical History / Comment(s): esophageal Mother Family Medical History: CVA/TIA Sister(s) Family Medical History: Cancer Additional Family Medical History / Comment(s): COLON Medications and Allergies Home Medications Medication Instructions Recorded Confirmed Type Loratadine [Claritin] 10 mg PO DAILY 03/20/14 08/27/18 History Ascorbic Acid [Vitamin C] 500 mg PO DAILY 01/18/17 08/27/18 History Cholecalciferol [Vitamin D3] 1,000 unit PO DAILY 01/18/17 08/27/18 History Cyanocobalamin [Vitamin B-12] 500 mcg PO DAILY 01/18/17 08/27/18 History RABEprazole SODIUM [Aciphex] 20 mg PO DAILY 01/18/17 08/27/18 History Estradiol [Divigel] 1 gm TOPICAL DAILY 03/13/18 08/27/18 History Allergies Allergy/AdvReac Type Severity Reaction Status Date / Time No Known Allergies Allergy Verified 08/27/18 13:21 Physical Exam Vitals: Vital Signs Temp Pulse Resp BP Pulse Ox 08/28/18 08:07 99.8 F H 90 20 105/64 94 L 08/28/18 01:03 98.5 F 74 16 121/80 96 08/27/18 19:58 99.2 F 70 20 123/81 94 L 08/27/18 15:50 98.1 F 70 14 108/69 95 08/27/18 11:25 98.6 F 67 18 113/74 96 General appearance: The patient is alert, oriented, in no acute distress. HET: Head is normocephalic and atraumatic. Pupils are equal and reactive. Oropharynx is clear without lesions. Neck: Supple without lymphadenopathy. Trachea midline. Heart: S1 S2. Regular rate and rhythm. Lungs: No crackles or wheezes are heard. Abdomen: Soft, mild midepigastric tenderness, nondistended with bowel sounds. No peritoneal signs. No palpable organomegaly or masses. Extremities: Normal skin color and turgor. No cyanosis, rash, ulceration, clubbing, or edema. Radial and pedal pulses are 2/4 bilaterally. Neurological: No focal deficits. Strength and sensation are grossly intact. Results CBC & Chem 7: 08/28/18 07:04 08/28/18 07:04 Labs: Abnormal Lab Results - Last 24 Hours (Table) 08/28/18 08/28/18 Range/Units 07:04 07:04 WBC 18.8 H (3.8-10.6) k/uL Plt Count 126 L (150-450) k/uL Neutrophils # 16.9 H (1.3-7.7) k/uL Lymphocytes # 0.7 L (1.0-4.8) k/uL Calcium 8.2 L (8.4-10.2) mg/dL Total Protein 6.2 L (6.3-8.2) g/dL Albumin 3.3 L (3.5-5.0) g/dL Lipase 2108 H (23-300) U/L Assessment and Plan (1) Idiopathic acute pancreatitis Current Visit: Yes Status: Acute Code(s): K85.00 - IDIOPATHIC ACUTE PANCREATITIS WITHOUT NECROSIS OR INFECTION SNOMED Code(s): 148284661 Plan: 1. We'll repeat IgG subclass 1-4. SHELBIE. Daily chemistries pancreatic enzymes CBC. Ice chips as tolerated. Patient is reporting moderate nausea without emesis. Antinausea medications will provide scopolamine patch in addition to Zofran. 2. Ultrasound rule out pseudocyst. Thank you for this kind referral and the opportunity to participate in the care of your patient. This consultation was discussed with Dr. Dan. The impression and plan of care have been directed as dictated.
--- NOTE | 2018-08-28 16:37 | XR ---
EXAMINATION TYPE: XR chest 2V DATE OF EXAM: 08/28/2018 COMPARISON: 09/17/2013 HISTORY: Leukocytosis TECHNIQUE: Frontal and lateral views of the chest are obtained. FINDINGS: There is no heart failure nor confluent pneumonic infiltrate. There is coarse interstitial density in the left lower lobe. There is no pleural effusion. Bony thorax is intact. IMPRESSION: Mild interstitial pneumonia left lower lobe is the same or increased compared to old exa m. There is clearing of the mild atelectasis right lung base compared to old exam.
[2018-08-28] MEDS: ONDANSETRON 4 MG/2 ML VIAL IVP SCH (19:12)
[2018-08-29] MEDS: ONDANSETRON 4 MG/2 ML VIAL IVP SCH ×5 (00:46→19:00)
[2018-08-29] MEDS: HYDROmorphone 1 MG/ML 1 ML SYRINGE IVP PRN ×6 (00:46→20:21)
[2018-08-29] MEDS: SODIUM CHLORIDE 0.9% 1,000 ML IV SCH ×2 (06:05→16:53)
[2018-08-29] MEDS ORDERED: LEVOFLOXACIN 750MG-D5W PMX 750 MG in DEXTROSE/WATER 1 150ML.BAG IVPB SCH (08:00)
[2018-08-29 08:14] LABS: Basophils % (A) 0 %; Eosinophils # (A) 0.1 k/uL (0-0.7); Eosinophils % (A) 1 %; HCT 36.7 % (34.0-46.0); HGB 11.9 gm/dL (11.4-16.0); Lymphocytes # (A) 0.7 k/uL (1.0-4.8); Lymphocytes % (A) 3 %; MCH 29.5 pg (25.0-35.0); MCHC 32.4 g/dL (31.0-37.0); Mean Platelet Volume 6.8; Monocytes % (A) 5 %; Neutrophils # (A) 20.1 k/uL (1.3-7.7); Neutrophils % (A) 90 %; Platelet Count 160 k/uL (150-450); RBC 4.04 m/uL (3.80-5.40); RDW 13.6 % (11.5-15.5); WBC 22.3 k/uL (3.8-10.6)
[2018-08-29 08:36] LABS: Anion Gap 9 mmol/L; Blood Urea Nitrogen 16 mg/dL (7-17); Calcium 7.8 mg/dL (8.4-10.2); Carbon Dioxide 24 mmol/L (22-30); Chloride 104 mmol/L (98-107); Glucose 96 mg/dL (74-99); Lipase 249 U/L (23-300); Potassium 3.3 mmol/L (3.5-5.1); Sodium 137 mmol/L (137-145)
[2018-08-29] MEDS ORDERED: POTASSIUM CHLORIDE 20 MEQ in WATER FOR INJECTION 1 100ML.BAG IVPB STA (08:52)
--- NOTE | 2018-08-29 09:43 | CT ---
EXAMINATION TYPE: CT abdomen pelvis wo con DATE OF EXAM: 08/29/2018 COMPARISON: 03/13/2018 HISTORY: Pancreatitis CT DLP: 1119 mGycm Examination of the solid and hollow viscera is limited given the lack of contrast. FINDINGS: LUNG BASES: Basilar atelectasis with small pleural effusions noted. LIVER/GB: Stable hepatic cystic lesion. Cholecystectomy clips are in place. PANCREAS: There is edema and inflammatory change involving the pancreas with peripancreatic formation . No evidence for pseudocyst or abscess. SPLEEN: No evidence for splenomegaly. No intrasplenic lesions seen. ADRENALS: No adrenal nodules identified. No evidence for thickening. KIDNEYS: No evidence for renal mass. No nephrolithiasis. No hydronephrosis. BOWEL: Appendectomy changes noted. No evidence of bowel obstruction. No inflammatory process. Scatter ed diverticulosis without diverticulitis. Lymph nodes: No evidence for adenopathy greater than 1 cm. Abdominal aorta: Atheromatous changes seen. No evidence for aneurysm. Genital organs: No significant abnormality. Other: Small amount of free fluid within the pelvis. IMPRESSION: 1. Findings compatible with acute pancreatitis. No evidence for pseudocyst or abscess formation at th is time. 2. Mild amount of ascites seen within the pelvis. 3. Basilar pleural effusions and compressive atelectasis.
[2018-08-29] MEDS: ENOXAPARIN 40 MG/0.4 ML SYRINGE SQ SCH (09:59)
--- NOTE | 2018-08-29 09:59 | P.PN ---
Subjective Progress Note Date: 08/29/18 Patient reporting that her abdominal spleen is controlled with Dilaudid but she is requiring it every 3 hours to remain pain-free, also reporting nausea is improved with Zofran and scopolamine currently on ice chips. The patient reports intermittent cough with some mild shortness of breath, reports compliance with IS. Patient afebrile overnight oral 100.2. Chest x-ray showing mild versus interstitial left lower lobe pneumonia Objective - Vital Signs Vital signs: Vital Signs Temp 98.0 F 08/29/18 07:50 Pulse 74 08/29/18 07:50 Resp 20 08/29/18 07:50 BP 109/68 08/29/18 07:50 Pulse Ox 94 L 08/29/18 07:50 Intake & Output 08/28/18 08/29/18 08/29/18 18:59 06:59 18:59 Other: # Voids 2 - Exam Constitutional: No acute distress, conversant, pleasant Eyes: Anicteric sclerae, moist conjunctiva, no lid-lag, PERRLA ENMT: NC/AT,Oropharynx clear, no erythema, exudates Neck:Supple, FROM, no masses, or JVD, No carotid bruits; No thyromegaly Lungs: Diminished in the bases, with bibasilar crackles Cardiovascular: Heart regular in rate and rhythm, No murmurs, gallops, or rubs no peripheral edema Abdominal: Soft ttp in epigastric area, hypoactive bowel sounds Skin: Normal temperature, tone, texture, turgor, No induration No subcutaneous nodules, No rash, lesions, No ulcers Extremities:No digital cyanosis No clubbing, Pedal pulses intact and symmetrical Radial pulses intact and symmetrical Normal gait and station, No calf tenderness Psychiatric: Alert and oriented to person, place and time, Appropriate affect Intact judgement Neuro: Muscles Strength 5/5 in all 4 extremities, Sensation to light touch grossly present throughout, Cranial nerves II-XII grossly intact. No focal sensory deficits - Labs CBC & Chem 7: 08/29/18 07:55 08/29/18 07:55 Labs: Abnormal Lab Results - Last 24 Hours (Table) 08/29/18 08/29/18 Range/Units 07:55 07:55 WBC 22.3 H (3.8-10.6) k/uL Neutrophils # 20.1 H (1.3-7.7) k/uL Lymphocytes # 0.7 L (1.0-4.8) k/uL Potassium 3.3 L (3.5-5.1) mmol/L Calcium 7.8 L (8.4-10.2) mg/dL Assessment and Plan (1) Idiopathic acute pancreatitis Narrative/Plan: * Continue current treatment and maintain nothing by mouth status lipase trending down from 5199 to 2108 to 258 * appreciate GI recommendations * Continue Dilaudid frequency to 1 mg every 3 hours when necessary * Continue with the Zofran and IV fluids * IgG subclasses ordered Current Visit: Yes Status: Acute Code(s): K85.00 - IDIOPATHIC ACUTE PANCREATITIS WITHOUT NECROSIS OR INFECTION SNOMED Code(s): 605408483 (2) Sepsis Narrative/Plan: * Concern for sepsis given patient's low fever in the setting of worsening leukocytosis WBC increasing from 19-22.3 * We'll check stat blood cultures, chest x-ray suggesting left interstitial pneumonia * We'll plan to obtain a CAT scan of abdomen and pelvis to rule out pseudocyst or abscess * Patient initiated on IV antibiotics with IV Levaquin * We'll obtain ID consultation for further recommendations Current Visit: Yes Status: Acute Code(s): A41.9 - SEPSIS, UNSPECIFIED ORGANISM SNOMED Code(s): 47107309 (3) Pneumonia Narrative/Plan: * Patient was started on Levaquin Current Visit: Yes Status: Acute Code(s): J18.9 - PNEUMONIA, UNSPECIFIED ORGANISM SNOMED Code(s): 357775529 (4) Hypokalemia Narrative/Plan: * We'll replace and recheck Current Visit: Yes Status: Acute Code(s): E87.6 - HYPOKALEMIA SNOMED Code( s): 65458063 Plan: Disposition anticipated discharge 1-2 days
[2018-08-29] MEDS: PANTOPRAZOLE 40 MG/10 ML VIAL IVP SCH (10:03)
[2018-08-29 13:20] LABS: IgG Subclass 3 27.7 mg/dL (11.0-85.0); IgG Subclass 4 95.8 mg/dL (3.0-175.0)
[2018-08-29] MEDS: PIPERACILLIN-TAZOBACTAM 3.375 GM in SODIUM CHLORIDE 0.9% 100 ML IVPB SCH (15:17)
--- NOTE | 2018-08-29 23:55 | P.PN ---
Subjective Progress Note Date: 08/29/18 Principal diagnosis: Acute pancreatitis the patient is seen lying in bed, reporting thatstill present but improved she is asking to try some liquids. No nausea or vomiting today. Objective - Vital Signs Vital signs: Vital Signs Temp 100.2 F H 08/29/18 20:41 Pulse 68 08/29/18 20:41 Resp 20 08/29/18 20:41 BP 104/68 08/29/18 20:41 Pulse Ox 95 08/29/18 20:41 Intake & Output 08/29/18 08/29/18 08/30/18 06:59 18:59 06:59 Intake Total 180 Balance 180 Intake: Oral 180 Other: Voiding Method Toilet # Voids 1 1 - Exam On physical examination, patient appears comfortable in no apparent distress. HEAD: Normocephalic, atraumatic. EYES: No scleral icterus. No conjunctival injection. MOUTH: No lesions, tongue midline. NECK: Trachea midline, no gross abnormalities. CHEST: Clear to auscultation with no wheezing or rhonchi appreciated. HEART: Regular rate and rhythm. ABDOMEN: Soft, tender to palpation. Bowel sounds are positive. No organomegaly. No guarding or rigidity. EXTREMITIES: No pedal edema. SKIN: No rashes, no jaundice. NEUROLOGIC: Alert and oriented x3. No focal deficits. - Labs CBC & Chem 7: 08/29/18 07:55 08/29/18 07:55 Labs: Abnormal Lab Results - Last 24 Hours (Table) 08/29/18 08/29/18 Range/Units 07:55 07:55 WBC 22.3 H (3.8-10.6) k/uL Neutrophils # 20.1 H (1.3-7.7) k/uL Lymphocytes # 0.7 L (1.0-4.8) k/uL Potassium 3.3 L (3.5-5.1) mmol/L Calcium 7.8 L (8.4-10.2) mg/dL Assessment and Plan (1) Idiopathic acute pancreatitis Narrative/Plan: Patient with recurrent episodes of acute pancreatitis, presenting with abdominal pain and serologic findings of pancreatitis. Currently improved however still experiencing some pain. Current Visit: Yes Status: Acute Code(s): K85.00 - IDIOPATHIC ACUTE PANCREATITIS WITHOUT NECROSIS OR INFECTION SNOMED Code(s): 027516758 Plan: Supportive care Continue fluid hydration Continue pain control We'll start liquid diet as tolerated Continue to monitor symptomatically Thank you for allowing us dysphagia in the care of the patient we will continue to follow
[2018-08-30] MEDS: SODIUM CHLORIDE 0.9% 1,000 ML IV SCH ×5 (00:02→23:48)
[2018-08-30] MEDS: PIPERACILLIN-TAZOBACTAM 3.375 GM in SODIUM CHLORIDE 0.9% 100 ML IVPB SCH ×4 (00:03→23:48)
[2018-08-30] MEDS: ONDANSETRON 4 MG/2 ML VIAL IVP SCH ×5 (00:03→23:48)
[2018-08-30] MEDS: HYDROmorphone 1 MG/ML 1 ML SYRINGE IVP PRN ×3 (01:41→12:00)
--- NOTE | 2018-08-30 06:19 | CONS ---
CONSULTATION DATE OF SERVICE: 08/29/2018. REASON FOR CONSULTATION: Acute pancreatitis and fever. HISTORY OF PRESENT ILLNESS: The patient is a 52-year-old female with a past medical history significant for idiopathic pancreatitis in this patient who did have history of recurrent pancreatitis in the past. Apparently the patient has been previously evaluated for the same condition at the [facility] where the patient did have EUS. The patient also had history of a cholecystectomy. Patient presenting to the ER at [facility] on 08/27/2018 with chief complaints of abdominal pain. The patient's pain has been mostly in the epigastric area. The patient the pain to be sharp which is almost 8/10 when she presented to the hospital. The patient did have associated nausea and episode of vomiting. The patient did have some chills but denies high-grade fever. With these symptoms, the patient was evaluated by the ER physician. On arrival to the ER, the patient was afebrile, temperature 97.8; however subsequently patient did spike a fever of 100.2 last evening. The patient also had an elevated white count of 16.2. However, the white count is up to 22.3 that prompted this infectious disease consultation. The patient did have a elevated lipase of 5199 and amylase of 708. Lipase is down to 49 as of this morning. The patient did have mildly positive UA. The patient did not have any CT of abdomen and pelvis completed. However, she has one CT done this morning and the report has been suggestive of acute pancreatitis with no evidence of pseudocyst or abscess formation; mild amount of ascites, bilateral effusion and compressive atelectasis. Infectious Disease was consulted for further recommendation regarding antibiotic therapy. REVIEW OF SYSTEMS: Positive points have been mentioned in HPI. Rest of the 14 systems has been negative. PAST MEDICAL HISTORY: Gastroesophageal reflux disease, history of idiopathic pancreatitis, pneumonia, duodenal ulcer, H pylori infection. PAST SURGICAL HISTORY: Appendectomy, breast surgery, cholecystectomy, hysterectomy. SOCIAL HISTORY: No history of smoking, drinking, or drug use. FAMILY HISTORY: Father history of esophageal cancer. Mother with history of CVA, TIA. Sister with history of colon cancer. ALLERGIES: No known drug allergies. MEDICATIONS: Medications include the patient is currently on Levaquin started this morning. She is on Protonix, Zofran, Narcan, Dilaudid, and Lovenox. PHYSICAL EXAMINATION: On examination, her blood pressure is 133/85 with a pulse of 79 temperature 97.4. She is 95% on room air. General description is a middle aged female, lying in bed in no distress. No tachypnea or accessory muscle of respiration use. HEENT examination shows no pallor or scleral icterus. Oral mucous membrane is dry. No pharyngeal erythema or thrush. NECK: Trachea central. No thyromegaly. LUNGS: Unlabored breathing, clear to auscultation anteriorly. No wheeze or crackle. HEART: S1, S2. Regular rate and rhythm. No added sounds. ABDOMEN: Soft, mildly tender in epigastric area. No guarding or rigidity. No organomegaly. EXTREMITIES: No edema of feet. SKIN EXAMINATION: No rash or mass palpable. NEUROLOGICAL: Patient is awake, alert, oriented x3. Mood and affect normal. LABS: Hemoglobin 11.9, white count 22.3 with a BUN of 16, creatinine 0.62. Electrolytes has been normal. Liver enzymes are normal. Lipase is down to 249. UA was mildly positive. DIAGNOSTIC IMPRESSION AND PLAN: The patient admitted to the hospital with abdominal pain and this patient did have significantly elevated lipase and amylase, likely acute pancreatitis in this patient who did have history of recurrent pancreatitis, possibly idiopathic etiology. The patient did have elevated white count more likely to have acute pancreatitis in a patient who did have a CT completed with no evidence of any pseudocyst or necrosis or abscess formation. PLAN: 1. We will start patient on Zosyn 3.375 grams q.8 hours. Discontinue the Levaquin. 2. Patient will continue n.p.o. State, bowel rest and pain management. 3. We will continue to monitor her clinical course closely. If the patient spikes any new fever or change in clinical condition, cultures will be repeated before adjusting antibiotic therapy. Thank you for this consultation. Will follow this patient along with you. MMODL / IJN: [id number] /
[2018-08-30 06:57] LABS: Basophils % (A) 0 %; Eosinophils # (A) 0.4 k/uL (0-0.7); Eosinophils % (A) 3 %; HCT 34.7 % (34.0-46.0); HGB 11.4 gm/dL (11.4-16.0); Lymphocytes % (A) 6 %; MCH 30.1 pg (25.0-35.0); MCHC 32.8 g/dL (31.0-37.0); MCV 91.7 fL (80.0-100.0); Mean Platelet Volume 7.4; Monocytes # (A) 0.8 k/uL (0-1.0); Monocytes % (A) 5 %; Neutrophils # (A) 12.7 k/uL (1.3-7.7); Neutrophils % (A) 85 %; Platelet Count 162 k/uL (150-450); RBC 3.78 m/uL (3.80-5.40); RDW 13.7 % (11.5-15.5); WBC 15.1 k/uL (3.8-10.6)
[2018-08-30 07:07] LABS: Anion Gap 5 mmol/L; Blood Urea Nitrogen 13 mg/dL (7-17); Calcium 7.8 mg/dL (8.4-10.2); Carbon Dioxide 26 mmol/L (22-30); Chloride 106 mmol/L (98-107); Glucose 96 mg/dL (74-99); Lipase 57 U/L (23-300); Potassium 3.3 mmol/L (3.5-5.1); Sodium 137 mmol/L (137-145)
[2018-08-30] MEDS: PANTOPRAZOLE 40 MG/10 ML VIAL IVP SCH (09:24)
[2018-08-30] MEDS: ENOXAPARIN 40 MG/0.4 ML SYRINGE SQ SCH (09:25)
--- NOTE | 2018-08-30 11:35 | P.PN ---
Subjective Progress Note Date: 08/30/18 Principal diagnosis: pancreatitis Feels better. Nausea better. WBC improved 15. Lipase normalized. Objective - Vital Signs Vital signs: Vital Signs Temp 98.6 F 08/30/18 09:33 Pulse 71 08/30/18 08:25 Resp 24 08/30/18 08:25 BP 114/79 08/30/18 08:25 Pulse Ox 95 08/30/18 08:25 Intake & Output 08/29/18 08/30/18 08/30/18 18:59 06:59 18:59 Intake Total 180 120 Balance 180 120 Intake: Oral 180 120 Other: Voiding Method Toilet # Voids 1 1 1 # Bowel Movements 3 - Constitutional General appearance: Present: average body habitus - EENT Eyes: Present: normal appearance ENT: Present: normal oropharynx - Neck Neck: Present: normal ROM - Respiratory Respiratory: bilateral: CTA - Cardiovascular Rhythm: regular Heart sounds: normal: S1, S2 - Gastrointestinal General gastrointestinal: Present: soft - Psychiatric Psychiatric: Present: A&O x's 3, appropriate affect - Labs CBC & Chem 7: 08/30/18 06:45 08/30/18 06:45 Labs: Abnormal Lab Results - Last 24 Hours (Table) 08/30/18 08/30/18 Range/Units 06:45 06:45 WBC 15.1 H (3.8-10.6) k/uL RBC 3.78 L (3.80-5.40) m/uL Neutrophils # 12.7 H (1.3-7.7) k/uL Potassium 3.3 L (3.5-5.1) mmol/L Calcium 7.8 L (8.4-10.2) mg/dL Microbiology - Last 24 Hours (Table) 08/29/18 09:09 Blood Culture - Preliminary Blood No Growth after 24 hours Assessment and Plan (1) Idiopathic acute pancreatitis Current Visit: Yes Status: Acute Code(s): K85.00 - IDIOPATHIC ACUTE PANCREATITIS WITHOUT NECROSIS OR INFECTION SNOMED Code(s): 195748177 Plan: 1. Advance diet as tolerated. SHELBIE/IgG studies unremarkable. RTO 3-4 weeks after DC. Assessment and plan of care discussed with Dr. Dan
[2018-08-30] MEDS ORDERED: POTASSIUM CHLORIDE ER 20 MEQ TAB.ER PO STA (13:27)
--- NOTE | 2018-08-30 13:46 | P.PN ---
Subjective Progress Note Date: 08/30/18 Patient reports her pain and nausea significantly improved, started on low-fat diet this morning doing well with that. Reports improvement of her shortness of air, reports cough that is nonproductive when working with her incentive spirometry. Patient with low-grade fever 100.2 last evening. Otherwise no acute events overnight Objective - Vital Signs Vital signs: Vital Signs Temp 98.1 F 08/30/18 12:09 Pulse 64 08/30/18 12:09 Resp 18 08/30/18 12:09 BP 99/67 08/30/18 12:09 Pulse Ox 94 L 08/30/18 12:09 Intake & Output 08/29/18 08/30/18 08/30/18 18:59 06:59 18:59 Intake Total 180 120 Balance 180 120 Intake: Oral 180 120 Other: Voiding Method Toilet # Voids 1 1 1 # Bowel Movements 3 - Exam Constitutional: No acute distress, conversant, pleasant Eyes: Anicteric sclerae, moist conjunctiva, no lid-lag, PERRLA ENMT: NC/AT,Oropharynx clear, no erythema, exudates Neck:Supple, FROM, no masses, or JVD, No carotid bruits; No thyromegaly Lungs: Diminished in the bases, clear to auscultation bilaterally Cardiovascular: Heart regular in rate and rhythm, No murmurs, gallops, or rubs no peripheral edema Abdominal: Soft ttp in epigastric area, hypoactive bowel sounds Skin: Normal temperature, tone, texture, turgor, No induration No subcutaneous nodules, No rash, lesions, No ulcers Extremities:No digital cyanosis No clubbing, Pedal pulses intact and symmetrical Radial pulses intact and symmetrical Normal gait and station, No calf tenderness Psychiatric: Alert and oriented to person, place and time, Appropriate affect Intact judgement Neuro: Muscles Strength 5/5 in all 4 extremities, Sensation to light touch grossly present throughout, Cranial nerves II-XII grossly intact. No focal sensory deficits - Labs CBC & Chem 7: 08/30/18 06:45 08/30/18 06:45 Labs: Abnormal Lab Results - Last 24 Hours (Table) 08/30/18 08/30/18 Range/Units 06:45 06:45 WBC 15.1 H (3.8-10.6) k/uL RBC 3.78 L (3.80-5.40) m/uL Neutrophils # 12.7 H (1.3-7.7) k/uL Potassium 3.3 L (3.5-5.1) mmol/L Calcium 7.8 L (8.4-10.2) mg/dL Microbiology - Last 24 Hours (Table) 08/29/18 10:34 Blood Culture - Preliminary Blood No Growth after 24 hours 08/29/18 09:09 Blood Culture - Preliminary Blood No Growth after 24 hours Assessment and Plan (1) Idiopathic acute pancreatitis Narrative/Plan: * Patient transitioned to low fat diet * lipase trending down from 5199 to 2108 to 258 to 57 * appreciate GI recommendations * Discontinue IV Dilaudid * Continue with the Zofran and IV fluids * IgG subclasses negative Current Visit: Yes Status: Resolved Code(s): K85.00 - IDIOPATHIC ACUTE PANCREATITIS WITHOUT NECROSIS OR INFECTION SNOMED Code(s): 686609662 (2) Sepsis Narrative/Plan: * Concern for sepsis given leukocytosis WBC decreasing from 22-15 * Blood cultures no growth 1 day, chest x-ray suggesting left interstitial pneumonia versus atelectasis we'll repeat chest x-ray today * CT abdomen and pelvis indicating findings consistent with acute pancreatitis with no evidence of pseudocyst or abscess bilateral pleural effusions and compressive atelectasis, * Appreciate ID recommendations regarding IV antibiotics Levaquin changed to Zosyn yesterday Current Visit: Yes Status: Acute Code(s): A41.9 - SEPSIS, UNSPECIFIED ORGANISM SNOMED Code(s): 02523310 (3) Pneumonia Narrative/Plan: * Patient continued now on Zosyn day 2 Current Visit: Yes Status: Acute Code(s): J18.9 - PNEUMONIA, UNSPECIFIED ORGANISM SNOMED Code(s): 945304238 (4) Hypokalemia Narrative/Plan: * We'll replace and recheck Current Visit: Yes Status: Acute Code(s): E87.6 - HYPOKALEMIA SNOMED Code( s): 54364438 Plan: Disposition anticipated discharge in 1 day if patient is afebrile and tolerating diet likely discharge tomorrow
--- NOTE | 2018-08-30 14:20 | XR ---
EXAMINATION TYPE: XR chest 2V DATE OF EXAM: 08/30/2018 COMPARISON: 08/28/2018 INDICATION: Sepsis, pneumonia TECHNIQUE: Frontal and lateral views of the chest are obtained. FINDINGS: The heart size is normal. The pulmonary vasculature is normal. Bibasilar infiltrates are present. Correlate for bibasilar atelectasis or pneumonia. Findings are dev eloping from comparison. IMPRESSION: 1. Bibasilar infiltrates. Correlate for atelectasis and pneumonia
[2018-08-30] MEDS: IPRATROPIUM-ALBUTEROL 3 ML NEB INHALATION SCH ×3 (16:16→23:41)
--- NOTE | 2018-08-30 17:28 | PN ---
PROGRESS NOTE DATE OF SERVICE: 08/30/2018 REASON FOR FOLLOWUP: Acute pancreatitis. INTERVAL HISTORY: The patient did have a low-grade fever of 100.2 last night; however, the patient has been afebrile since then. The patient is feeling slightly better. The patient's abdominal pain has improved. The patient denies having any chest pain. No shortness of breath or cough. Slight nausea but no vomiting. No diarrhea. PHYSICAL EXAMINATION: Blood pressure is 98/60 with a pulse of 108, temperature 98.8. She is 96% on room air. General description is a middle-aged female lying in bed in no distress. RESPIRATORY SYSTEM: Unlabored breathing. Clear to auscultation anteriorly. HEART: S1, S2. Regular rate and rhythm. ABDOMEN: Soft. No clinical tenderness. LABS: Hemoglobin 11.4, white count 15.1 with BUN of 13, creatinine 0.53. DIAGNOSTIC IMPRESSION AND PLAN: Patient with leukocytosis, more likely because of severe pancreatitis which is idiopathic in this patient. The patient at this time is to continue Zosyn while we wait for the white count to normalize. Clinically the patient remains afebrile continue with oral antibiotics. Continue with supportive care. MMODL / IJN: [id number] /
[2018-08-30] MEDS: guaiFENesin 600 MG TABLET.ER PO SCH (20:25)
[2018-08-31] MEDS: IPRATROPIUM-ALBUTEROL 3 ML NEB INHALATION SCH ×2 (03:30→09:37)
[2018-08-31] MEDS: ONDANSETRON 4 MG/2 ML VIAL IVP SCH ×2 (06:32→12:15)
[2018-08-31] MEDS ORDERED: PANTOPRAZOLE 40 MG TABLET PO SCH (07:30)
[2018-08-31 08:51] VITALS: BP 124/83; RESP 16; TEMP 98
[2018-08-31] MEDS: PIPERACILLIN-TAZOBACTAM 3.375 GM in SODIUM CHLORIDE 0.9% 100 ML IVPB SCH (08:52)
[2018-08-31] MEDS: SODIUM CHLORIDE 0.9% 1,000 ML IV SCH (08:52)
[2018-08-31] MEDS: guaiFENesin 600 MG TABLET.ER PO SCH (08:55)
[2018-08-31] MEDS: ENOXAPARIN 40 MG/0.4 ML SYRINGE SQ SCH (08:55)
[2018-08-31 09:01] LABS: Basophils % (A) 0 %; Eosinophils # (A) 0.5 k/uL (0-0.7); Eosinophils % (A) 6 %; HCT 33.9 % (34.0-46.0); HGB 10.9 gm/dL (11.4-16.0); Lymphocytes # (A) 0.9 k/uL (1.0-4.8); Lymphocytes % (A) 10 %; MCH 29.2 pg (25.0-35.0); MCHC 32.2 g/dL (31.0-37.0); MCV 90.6 fL (80.0-100.0); Mean Platelet Volume 6.9; Monocytes # (A) 0.4 k/uL (0-1.0); Monocytes % (A) 4 %; Neutrophils % (A) 78 %; Platelet Count 211 k/uL (150-450); RBC 3.75 m/uL (3.80-5.40); RDW 13.7 % (11.5-15.5); WBC 8.9 k/uL (3.8-10.6)
[2018-08-31 09:10] LABS: Anion Gap 5 mmol/L; Blood Urea Nitrogen 8 mg/dL (7-17); Calcium 7.9 mg/dL (8.4-10.2); Carbon Dioxide 27 mmol/L (22-30); Chloride 109 mmol/L (98-107); Glucose 125 mg/dL (74-99); Lipase 35 U/L (23-300); Potassium 3.2 mmol/L (3.5-5.1); Sodium 141 mmol/L (137-145)
[2018-08-31 09:41] VITALS: PULSE 76
--- NOTE | 2018-08-31 11:17 | P.DS ---
Providers Date of admission: 08/27/18 09:35 Expected date of discharge: 08/31/18 Attending physician: Brandi Sellers, DO Consults: 08/27/18 12:58 Consult Physician Routine Consulting Provider: Rajeev Berman Consult Reason/Comments: Acute pancreatitis Do you want consulting provider notified?: Yes 08/29/18 08:50 Consult Physician Routine Consulting Provider: Gay Clark Consult Reason/Comments: acute pancreatitis/fever Do you want consulting provider notified?: Yes Primary care physician: Mina Brower - Discharge Diagnosis(es) (1) Idiopathic acute pancreatitis Current Visit: Yes Status: Resolved (2) Sepsis Current Visit: Yes Status: Acute (3) Pneumonia Current Visit: Yes Status: Acute (4) Hypokalemia Current Visit: Yes Status: Acute Hospital Course: The patient is a 52-year-old female that was admitted for acute on chronic idiopathic pancreatitis after she presented with severe abdominal pain and intractable nausea and vomiting and was found to have a significantly elevated serum lipase of 5199. She was placed on standard therapy with IV fluids, made NPO and treated with IV Dilaudid for pain. There is concern For sepsis as a patient presented with a white count of 22 and had persistent fevers , CT abdomen and pelvis was negative for any pseudocyst or abscess, chest x-ray did reveal a left interstitial pneumonia with bibasilar infiltrates, she was placed on incentive spirometry and covered with broad-spectrum antibiotics with IV Zosyn. With treatment her leukocytosis and fevers resolved and her diet was gradually advanced to a low-fat diet which she was tolerating well on day of discharge. The patient was started on potassium replacement due to ongoing hypokalemia that was addressed while hospitalized. She was subsequently discharged home in stable condition with new prescription for potassium and Levaquin. She was instructed to follow-up with her primary care physician . This discharge process took approximately 35 minutes Patient Condition at Discharge: Good Plan - Discharge Summary Discharge Rx Participant: Yes New Discharge Prescriptions: New Levofloxacin [Levaquin] 500 mg PO DAILY 5 Days #5 tab Potassium Chloride ER [K-Dur 20] 20 meq PO DAILY #30 tab.er.prt Continue Loratadine [Claritin] 10 mg PO DAILY Cyanocobalamin [Vitamin B-12] 500 mcg PO DAILY RABEprazole SODIUM [Aciphex] 20 mg PO DAILY Cholecalciferol [Vitamin D3] 1,000 unit PO DAILY Ascorbic Acid [Vitamin C] 500 mg PO DAILY Estradiol [Divigel] 1 gm TOPICAL DAILY Discharge Medication List Loratadine [Claritin] 10 mg PO DAILY 03/20/14 [History] Ascorbic Acid [Vitamin C] 500 mg PO DAILY 01/18/17 [History] Cholecalciferol [Vitamin D3] 1,000 unit PO DAILY 01/18/17 [History] Cyanocobalamin [Vitamin B-12] 500 mcg PO DAILY 01/18/17 [History] RABEprazole SODIUM [Aciphex] 20 mg PO DAILY 01/18/17 [History] Estradiol [Divigel] 1 gm TOPICAL DAILY 03/13/18 [History] Levofloxacin [Levaquin] 500 mg PO DAILY 5 Days #5 tab 08/31/18 [Rx] Potassium Chloride ER [K-Dur 20] 20 meq PO DAILY #30 tab.er.prt 08/31/18 [Rx] Follow up Appointment(s)/Referral(s): Mina Brower MD [Primary Care Provider] - 1-2 days William Dan MD [STAFF PHYSICIAN] - 3 Weeks
[2018-09-01] MEDS ORDERED: POTASSIUM CHLORIDE ER 20 MEQ TAB.ER PO SCH (09:00)
--- NOTE | 2018-09-03 14:11 | CDI ---
Documentation Clarification Form Date: 09/03/18 From: Marybeth Angulo Phone: If you have a question regarding this query, please contact Rose Gill at [phone] between 8am and 5pm. Admit Date: 08/27/2018 9:35:00 AM Patient Name: Natasha Cox Visit Number: [id number] Discharge Date: 08/31/2018 1:15:00 PM ATTENTION: The Clinical Documentation Specialists (CDI) and [facility] Coding Staff appreciate your assistance in clarifying documentation. Please respond to the clarification below the line at the bottom and electronically sign. The CDI & [facility] Coding staff will review the response and follow-up if needed. Please note: Queries are made part of the Legal Health Record. If you have any questions, please contact the author of this message via ITS. Dr. Rudolph Barrera Sepsis has been documented in your progress notes and discharge summary. The patient presented with acute pancreatitis and was found to have pneumonia. Documentation of sepsis began on 08/29. History/Risk Factors: Patient has a history of recurrent pancreatitis and pneumonia. Clinical Indicators: Leukocytosis with continuing elevation of WBC until 08/29 and fever. WBC: 16.2 on admission then up to 22.3 by 08/29. Lactic Acid: 0.9 Vital Signs: T. 97.8 on admission, 100.2 on 08/28 and 08/29, P. 67 on admission, 108 on 08/30, R. 18 on admission, 24 on 08/29 and 08/30, BP 121/86 on admission, 99/60 on 08/29, 99/67 and 98/60 on 08/30 Treatment: IV Zosyn & IV Levofloxacin. Definition of Present on Admission (POA): A diagnosis present at the time the order for admission to inpatient status was written. For each diagnosis, documentation must be clear to determine if the condition was present at the time of the patients inpatient admission or developed during the hospital stay. Please clarify if Sepsis was POA: Yes Sepsis POA PHILLIPD
== END 2018-08-31 13:15 | disposition home or self-care (01) | DRG 871 ==
LOC: EC 07:03 → 6PED 09:35
PROVIDERS: ADMIT Internal Medicine; ATTEND Internal Medicine
DX: A41.9 Sepsis, unspecified organism (principal); J18.9 Pneumonia, unspecified organism; K85.00 Idiopathic acute pancreatitis without necrosis or infection; K86.1 Other chronic pancreatitis; E87.6 Hypokalemia; F41.0 Panic disorder [episodic paroxysmal anxiety]; K21.9 Gastro-esophageal reflux disease without esophagitis; Z87.11 Personal history of peptic ulcer disease; Z90.710 Acquired absence of both cervix and uterus; Z90.49 Acquired absence of other specified parts of digestive tract; Z79.899 Other long term (current) drug therapy; Z87.01 Personal history of pneumonia (recurrent); Z82.3 Family history of stroke; Z80.0 Family history of malignant neoplasm of digestive organs
CPT/HCPCS: 36415; 71046; 74176; 80048; 80053; 81001; 82150; 82787; 83605; 83690; 83735; 85025; 86038; 87040; 94640; 96361; 96374; 96375; 96376; 99285

== ENCOUNTER → 2018-12-13 | Outpatient (CLI) | payer MEDICARE, OTHER ==
--- NOTE | 2018-12-13 14:57 | CT ---
EXAMINATION TYPE: CT abdomen pelvis wo con DATE OF EXAM: 12/13/2018 COMPARISON: Prior CT 08/29/2018 HISTORY: Abdominal pain, diverticulitis CT DLP: 1019 mGycm Automated exposure control for dose reduction was used. TECHNIQUE: Helical acquisition of images from the lung bases through the pelvis. Patient received or al contrast only. FINDINGS: Lack of intravenous contrast could compromise sensitivity. LUNG BASES: Interval improved aeration at the lung bases. AORTA: No significant abnormality is appreciataed. LIVER/GB: Stable, there is low dense focus within the liver which statistically is likely to represen t cysts, patient is post cholecystectomy PANCREAS: Improvement as compared to prior exam SPLEEN: Indeterminate hypodense focus is noted within the spleen measuring approximately 2 cm in size ADRENALS: No significant abnormality is seen. KIDNEYS: No significant abnormality is seen. REPRODUCTIVE ORGANS: Not seen URINARY BLADDER: No significant abnormality is seen. BOWEL: Extensive diverticular changes associated with the colon. Oral contrast has not entered the c olon and is reached only the distal small bowel. No evident bowel obstruction, the appendix is not se en, metallic densities present just lateral to the cecum as distal aspect. FREE AIR: No Free Air is visible. ASCITES: None visible. PELVIC ADENOPATHY: None visualized. RETROPERITONEAL ADENOPATHY: No Retroperitoneal Adenopathy visible. OSSEOUS STRUCTURES: No significant abnormality is seen. IMPRESSION: EXTENSIVE DIVERTICULOSIS. INTERVAL IMPROVEMENT IN PATIENT'S APPEARANCE OF PANCREATITIS. NONCONTRAST E XAM. POSTOP CHANGES.
== END ==
LOC: RADCTMAIN 11:22
PROVIDERS: ATTEND Family Medicine
DX: K57.90 Diverticulosis of intestine, part unspecified, without perforation or abscess without bleeding (principal); K85.90 Acute pancreatitis without necrosis or infection, unspecified; Z98.890 Other specified postprocedural states
CPT/HCPCS: 74176

== ENCOUNTER 2019-04-28 09:34 | Day surgery (SDC) | payer OTHER ==
[2019-04-24 11:53] VITALS: BMI 31.3
[~2019-04-28 09:34] MED LIST: LACTATED RINGERS 1,000 ML IV SCH; LIDOCAINE 1% 20 ML VIAL (10MG/ML) FOR IV START INTRADERMA PRN
[2019-04-28 10:22] VITALS: RESP 16; TEMP 97.5
[2019-04-28] MEDS ORDERED: PROPOFOL 10 MG/ML 20 ML VIAL IV ONE (10:28)
[2019-04-28] MEDS ORDERED: fentaNYL (PF) 50 MCG/ML 2 ML AMP ONE (10:28)
[2019-04-28] MEDS ORDERED: MIDAZOLAM 2 MG/2 ML VIAL ONE (10:28)
--- NOTE | 2019-04-28 11:04 | P.PCN ---
Date of Procedure: 04/28/19 Description of Procedure: BRIEF HISTORY: 53-year-old female presenting for outpatient evaluation for diverticulitis. Previous colonoscopy in 2013 was significant for diverticulosis. First episode of acute colonic diverticulitis in 12/[address] of the abdomen at that time reporting extensive diverticular changes. PROCEDURE PERFORMED: Colonoscopy. PREOPERATIVE DIAGNOSIS: Diverticulitis, family history of colon cancer, last colonoscopy in 2013. ESTIMATED BLOOD LOSS: Minimal. IV sedation per Anesthesia. PROCEDURE: After informed consent was obtained, the patient, was brought into the endoscopy unit. IV sedation was administered by Anesthesia under continuous monitoring. Digital rectal examination was normal. Initially the Olympus CF-190 flexible video colonoscope was then inserted in the rectum, gradually advanced into the sigmoid where numerous diverticula were noted. At this time the colonoscope was withdrawn and a pediatric colonoscope was then inserted into the rectum and gradually advanced into the cecum without any difficulty. Careful examination wa s performed as the scope was gradually being withdrawn. Ileocecal valve and the appendiceal orifice were visualized and appeared normal. Prep was excellent. Mucosa of the cecum, ascending colon, transverse colon, descending colon, sigmoid colon, and rectum appeared normal. Numerous small and large diverticula noted in the sigmoid colon. Retroflexion was performed in the rectum and no lesions were seen. The patient tolerated the procedure well. IMPRESSION: Normal-appearing colon from rectum to cecum, with moderate left-sided diverticulosis. RECOMMENDATIONS: Findings of this examination were discussed with the patient and her . Okay to resume diet. Okay to resume medications. Would recommend repeat colonoscopy in 5 years for family history of colon cancer.
[2019-04-28 11:30] VITALS: BP 119/85; PULSE 71
== END 2019-04-28 11:53 | disposition home or self-care (01) ==
LOC: ORWHC2ENDO 09:34
PROVIDERS: ATTEND Internal Medicine
DX: K57.30 Diverticulosis of large intestine without perforation or abscess without bleeding (principal); Z80.0 Family history of malignant neoplasm of digestive organs; K21.9 Gastro-esophageal reflux disease without esophagitis; Z90.49 Acquired absence of other specified parts of digestive tract; Z90.710 Acquired absence of both cervix and uterus; Z79.899 Other long term (current) drug therapy
CPT/HCPCS: 45378; J2250; J3010; J2704

== ENCOUNTER → 2019-05-27 | Outpatient (CLI) | payer OTHER ==
--- NOTE | 2019-05-28 10:16 | MR ---
EXAMINATION TYPE: MR pancreas wo/w con DATE OF EXAM: 05/27/2019 COMPARISON: CT abdomen pelvis dated 12/13/2018 and 08/29/2018. MR pancreas 05/20/2018 HISTORY: Pancreatitis CONTRAST: Standard multiplanar, multisequence MRI departmental protocol utilizing 9 mL intravenous Gadavist michael olinium contrast. FINDINGS: There is no evidence of main pancreatic ductal dilatation of the main pancreatic duct measures 2.25 m m at the pancreatic body. Within the pancreatic head this measures 2.38 mm. Common bile duct the panc reatic head measures 5.5 mm and is within normal limits. No significant intrahepatic biliary ductal d ilatation. In the uncinate process and portions of the head of the pancreas there is ill-defined T2 h yperintensity with heterogenous enhancement throughout. Central punctate cystic focus measures 5 mm. This appears more pronounced on the prior MRI of 05/20/2018. Pancreatic body and tail are unremarkabl e. There is redemonstration of an approximately 7 mm hepatic cyst in the right hepatic lobe and 1.9 cm h epatic cyst and left hepatic lobe. No significant signal dropout on out of phase imaging to indicate hepatic steatosis. There is a 6 mm exophytic left renal cyst is nonenhancing and T2 hyperintense. No hydronephrosis of either kidney. The spleen is diffusely heterogenous as seen on the prior exams with multiple nonenhancing cysts and other mildly enhancing lesions. No new adenopathy seen in the abdomen. Subcutaneous tissues are unremarkable. Abdominal aorta is with in normal limits. Adrenal glands are symmetric. No dilated bowel. IMPRESSION: 1. There is abnormal morphology of the pancreatic uncinate process and head of the pancreas. This is more conspicuous than on the prior examination. The patient is known to have chronic pancreatitis, po ssibly IgG4 related pancreatic disease, which could account for this finding. If laboratory values an d clinical findings are discordant consideration for percutaneous biopsy could be given. No new ducta l dilatation or new pancreatic mass. 2. Redemonstration of numerous nonspecific splenic lesions that as stated on the prior could be relat ed to in autoimmune process. Some of these do appear as small cysts and overall findings are unchange d from the prior.
== END | disposition home or self-care (01) ==
LOC: RADMRIMAIN 12:17
PROVIDERS: ATTEND Nurse Practitioner
DX: K86.1 Other chronic pancreatitis (principal)
CPT/HCPCS: 74183; A9585

== ENCOUNTER → 2020-08-04 | Outpatient (CLI) | payer BC ==
[2020-08-05 01:06] LABS: Hemoglobin A1C 5.2 % (4.0-6.0)
[2020-08-05 02:14] LABS: ALT 14 U/L (8-44); AST 17 U/L (13-35); Albumin/Globulin Ratio 2.05 (1.60-3.17); Alkaline Phosphatase 102 U/L (41-126); Bilirubin, Conjugated <0.20 mg/dL (0.20-0.40); Calcium 9.4 mg/dL (8.7-10.3); Globulin 2.2 g/dL (1.6-3.3); Total Bilirubin 0.3 mg/dL (0.2-1.2); Total Protein 6.7 g/dL (6.2-8.2)
== END | disposition home or self-care (01) ==
LOC: LABWHC1 15:09
PROVIDERS: ATTEND Internal Medicine Gastroenterology
DX: K86.1 Other chronic pancreatitis (principal)
CPT/HCPCS: 36415; 80076; 82310; 82656; 83036; 83970; 83993

== ENCOUNTER → 2020-11-05 | Outpatient (CLI) | payer BC | END | disposition home or self-care (01) | LOC: RADUSWWP 13:07 | PROVIDERS: ATTEND Podiatrist Foot & Ankle Surgery | DX: I73.9 Peripheral vascular disease, unspecified (principal) | CPT/HCPCS: 93922 ==

== ENCOUNTER → 2020-12-23 | Outpatient (CLI) | payer BC | END | disposition home or self-care (01) | LOC: LABWHC1 07:22 | PROVIDERS: ATTEND Internal Medicine Gastroenterology | DX: R79.89 Other specified abnormal findings of blood chemistry (principal) | CPT/HCPCS: 36415; 82306 ==

== ENCOUNTER → 2021-03-21 | Outpatient (CLI) | payer BC ==
--- NOTE | 2021-03-21 11:07 | BD ---
EXAMINATION TYPE: Axial Bone Density DATE OF EXAM: 03/21/2021 COMPARISON: NONE CLINICAL HISTORY: Height: 67 IN Weight: 224 LBS RISK FACTORS HISTORY OF: Active: YES Diet low in dairy products/other sources of calcium: YES Postmenopausal woman: TOTAL HYST AGE 51 Take estrogen and/or progesterone medications: YES How long: DIVIGEL 4 YEARS MEDICATIONS: Additional Medications: VIT D, CALCIUM, DIVIGEL, ACID REFLUX MEDS, CLARITIN, MUSCLE RELAXER EXAM MEASUREMENTS: Bone mineral densitometry was performed using the code-laboration System. Bone mineral density as measured about the Lumbar spine is: ----- L1-L4(G/cm2): 1.076 T Score Values are as follows: ----- L2: -1.2 ----- L3: -1.5 ----- L4: -0.1 ----- L1-L4: -0.9 Bone mineral density BASELINE Bone mineral density about the R hip (g/cm2): 0.928 Bone mineral density about the L hip (g/cm2): 0.894 T Score values are as follows: -----R Neck: -0.8 -----L Neck: -1.0 -----R Total: 0.0 -----L Total: -0.2 Bone mineral density BASELINE IMPRESSION: No evidence for osteopenia or osteoporosis. NOTE: T-SCORE=SD OF THE YOUNG ADULT MEAN.
== END | disposition home or self-care (01) ==
LOC: RADBDWWP 07:36
PROVIDERS: ATTEND Psychiatry & Neurology Neurology
DX: Z78.0 Asymptomatic menopausal state (principal)
CPT/HCPCS: 77080

== ENCOUNTER 2021-04-16 07:44 | Inpatient (IN) | payer BC ==
[2021-04-16] MEDS ORDERED: SODIUM CHLORIDE 0.9% 2,000 ML IV STA (08:06)
[2021-04-16] MEDS ORDERED: SODIUM CHLORIDE 0.9% 1,000 ML IV STA (08:06)
[2021-04-16] MEDS ORDERED: HYDROmorphone 0.5 MG/0.5 ML SYRINGE IVP STA ×2 (08:06→12:09)
[2021-04-16] MEDS ORDERED: ONDANSETRON 4 MG/2 ML VIAL IVP STA (08:06)
[2021-04-16] MEDS ORDERED: PANTOPRAZOLE 40 MG/10 ML VIAL IVP STA (08:07)
--- NOTE | 2021-04-16 08:10 | ED ---
Abdominal Pain HPI - General Chief Complaint: Abdominal Pain Stated Complaint: Pancreatitis Time Seen by Provider: 04/16/21 07:53 Source: patient, RN notes reviewed, old records reviewed Mode of arrival: wheelchair Limitations: no limitations - History of Present Illness Initial Comments: This Patient is a 55-year-old female with history of pancreatitis. Patient states that since 04-13-2021 evening she has developed epigastric abdominal pain radiating towards her back. She said multiple episodes of vomiting and pain has progressed. Patient states that she has had a previous flare pancreatitis 1 month ago but treated this at home without eating and clear liquids. She reports she's been evaluated by Dr. Hardin as well as multiple specialists in the past including at [facility]. 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 She states that she is no history of alcohol use. She denies fevers, chills, shortness of breath, chest pain. She does report some mild diarrhea associated with nausea and vomit ing. She denies dysuria. - Related Data Home Medications Medication Instructions Recorded Confirmed Loratadine [Claritin] 10 mg PO DAILY 03/20/14 04/16/21 RABEprazole SODIUM [Aciphex] 20 mg PO BID 01/18/17 04/16/21 estradioL [Divigel] 1 gm TOPICAL DAILY 03/13/18 04/16/21 Cyclobenzaprine [Flexeril] 5 mg PO HS 04/16/21 04/16/21 Oxybutynin Chloride 5 mg PO BID 04/16/21 04/16/21 Allergies Allergy/AdvReac Type Severity Reaction Status Date / Time No Known Allergies Allergy Verified 04/16/21 09:41 Review of Systems ROS Statement: Those systems with pertinent positive or pertinent negative responses have been documented in the HPI. ROS Other: All systems not noted in ROS Statement are negative. Past Medical History Past Medical History: Blood Disorder, Eye Disorder, GERD/Reflux, Pneumonia Additional Past Medical History / Comment(s): pancreatitis, duodenal ulcer, H. Pylori, diverticulitis History of Any Multi-Drug Resistant Organisms: None Reported Past Surgical History: Appendectomy, Breast Surgery, Cholecystectomy, Hysterec jordy Additional Past Surgical History / Comment(s): breast biopsy, colonoscopy Past Anesthesia/Blood Transfusion Reactions: No Reported Reaction Past Psychological History: No Psychological Hx Reported Smoking Status: Never smoker Past Alcohol Use History: None Reported Past Drug Use History: None Reported - Past Family History Father Family Medical History: Cancer Additional Family Medical History / Comment(s): esophageal Mother Family Medical History: CVA/TIA Sister(s) Family Medical History: Cancer Additional Family Medical History / Comment(s): COLON General Exam Limitations: no limitations General appearance: alert, in no apparent distress Head exam: Present: atraumatic, normocephalic, normal inspection Eye exam: Present: normal appearance, PERRL, EOMI. Absent: scleral icterus, conjunctival injection, periorbital swelling ENT exam: Present: normal exam, mucous membranes moist Neck exam: Present: normal inspection. Absent: tenderness, meningismus, lymphadenopathy Respiratory exam: Present: normal lung sounds bilaterally. Absent: respiratory distress, wheezes, rales, rhonchi, stridor Cardiovascular Exam: Present: regular rate, normal rhythm, normal heart sounds. Absent: systolic murmur, diastolic murmur, rubs, gallop, clicks GI/Abdominal exam: Present: soft, tenderness (epigastric tenderness ), normal bowel sounds. Absent: distended, guarding, rebound, rigid Extremities exam: Present: normal inspection, full ROM, normal capillary refill. Absent: tenderness, pedal edema, joint swelling, calf tenderness Back exam: Present: normal inspection Neurological exam: Present: alert Psychiatric exam: Present: normal affect, normal mood Course Vital Signs 04/16/21 04/16/21 04/16/21 07:49 08:18 10:15 Temperature 97.9 F Pulse Rate 91 69 72 Respiratory 18 18 18 Rate Blood Pressure 145/92 139/89 136/83 O2 Sat by Pulse 97 97 96 Oximetry 04/16/21 10:53 Temperature Pulse Rate 69 Respiratory 18 Rate Blood Pressure 141/94 O2 Sat by Pulse 94 L Oximetry - Reevaluation(s) Reevaluation #1: 04/16/21 11:06 Contacted sounds physician, concern without GI physician available, did not want to have this Patient here and requested to transfer. I discussed with the Patient who is very concerning be transferred as her previous episodes of pancreatitis have improved with IV fluids and has been admitted here multiple times in the past. Discussed with Dr. Gomez, with recommendation to try another physician for admit. Medical Decision Making - Medical Decision Making This is a 55-year-old female who presents for complaints of nausea vomiting epigastric abdominal pain leading towards her back. She has history of chronic pancreatitis. Her most recent start symptoms started last Sunday. At this time patient's amylase and lipase are elevated consistent with pancreatitis. She was given 2 L bolus for nausea medicine and pain medication. Case was discussed Dr. Gomez, and discussed admission with Dr. Martinez. He agrees to admit patient, NPO, IV pain medication and IV hydration. - Lab Data Result diagrams: 04/16/21 08:11 04/16/21 08:11 Lab Results 04/16/21 04/16/21 04/16/21 Range/Units 08:11 08:11 10:15 WBC 16.9 H (3.8-10.6) k/uL RBC 5.08 (3.80-5.40) m/uL Hgb 14.4 (11.4-16.0) gm/dL Hct 42.7 (34.0-46.0) % MCV 84.1 (80.0-100.0) fL MCH 28.4 (25.0-35.0) pg MCHC 33.7 (31.0-37.0) g/dL RDW 14.4 (11.5-15.5) % Plt Count 177 (150-450) k/uL MPV 7.5 Neutrophils % 92 % Lymphocytes % 4 % Monocytes % 2 % Eosinophils % 1 % Basophils % 0 % Neutrophils # 15.6 H (1.3-7.7) k/uL Lymphocytes # 0.7 L (1.0-4.8) k/uL Monocytes # 0.3 (0-1.0) k/uL Eosinophils # 0.2 (0-0.7) k/uL Basophils # 0.0 (0-0.2) k/uL Sodium 135 L (137-145) mmol/L Potassium 3.7 (3.5-5.1) mmol/L Chloride 101 (98-107) mmol/L Carbon Dioxide 24 (22-30) mmol/L Anion Gap 10 mmol/L BUN 15 (7-17) mg/dL Creatinine 0.75 (0.52-1.04) mg/dL Est GFR (CKD-EPI)AfAm >90 (>60 ml/min/1.73 sqM) Est GFR (CKD-EPI)NonAf >90 (>60 ml/min/1.73 sqM) Glucose 139 H (74-99) mg/dL Calcium 9.5 (8.4-10.2) mg/dL Total Bilirubin 0.6 (0.2-1.3) mg/dL AST 23 (14-36) U/L ALT 13 (4-34) U/L Alkaline Phosphatase 112 (38-126) U/L Total Protein 7.3 (6.3-8.2) g/dL Albumin 4.1 (3.5-5.0) g/dL Amylase 424 H* (30-110) U/L Lipase 2245 H (23-300) U/L Coronavirus (PCR) Not Detected (Not Detectd) - Radiology Data Radiology results: report reviewed Ct abdomen and pelvis: KUB shows nonobstructive bowel gas pattern. Correlate films with ileus or enteritis follow-up study indicated. Findings consistent wi th patient's history of pancreatitits. Indeterminate findings within the spleen are chronic. Disposition Clinical Impression: Acute pancreatitis, Leukocytosis Disposition: ADMITTED IP TO THIS HOSP Condition: Stable Is patient prescribed a controlled substance at d/c from ED?: No Referrals: Mina Brower MD [Primary Care Provider] - 1-2 days Time of Disposition: 12:26
[2021-04-16 08:25] LABS: Basophils % (A) 0 %; Eosinophils # (A) 0.2 k/uL (0-0.7); Eosinophils % (A) 1 %; HCT 42.7 % (34.0-46.0); HGB 14.4 gm/dL (11.4-16.0); Lymphocytes # (A) 0.7 k/uL (1.0-4.8); Lymphocytes % (A) 4 %; MCH 28.4 pg (25.0-35.0); MCHC 33.7 g/dL (31.0-37.0); MCV 84.1 fL (80.0-100.0); Mean Platelet Volume 7.5; Monocytes # (A) 0.3 k/uL (0-1.0); Monocytes % (A) 2 %; Neutrophils # (A) 15.6 k/uL (1.3-7.7); Neutrophils % (A) 92 %; Platelet Count 177 k/uL (150-450); RBC 5.08 m/uL (3.80-5.40); RDW 14.4 % (11.5-15.5); WBC 16.9 k/uL (3.8-10.6)
[2021-04-16 08:39] LABS: ALT 13 U/L (4-34); AST 23 U/L (14-36); African American GFR (CKD) >90 (>60 ml/min/1.73 sqM); Albumin 4.1 g/dL (3.5-5.0); Alkaline Phosphatase 112 U/L (38-126); Anion Gap 10 mmol/L; Blood Urea Nitrogen 15 mg/dL (7-17); Calcium 9.5 mg/dL (8.4-10.2); Carbon Dioxide 24 mmol/L (22-30); Chloride 101 mmol/L (98-107); Glucose 139 mg/dL (74-99); Non-African American GFR(CKD) >90 (>60 ml/min/1.73 sqM); Potassium 3.7 mmol/L (3.5-5.1); Sodium 135 mmol/L (137-145); Total Bilirubin 0.6 mg/dL (0.2-1.3); Total Protein 7.3 g/dL (6.3-8.2)
[2021-04-16 08:57] LABS: Amylase 424 U/L (30-110)
--- NOTE | 2021-04-16 08:57 | XR ---
KUB HISTORY: Pain Frontal KUB and 2 images correlated to prior exam dated 03/13/2018 Surgical clips are present in the right upper quadrant, right hemiabdomen. Lung bases are clear. Ther e is no evident bowel obstruction or pneumoperitoneum, there are air-fluid levels without bowel diste ntion. Slight spinal curvature is again seen. Calcifications in the pelvis are again noted and likely represent phleboliths. IMPRESSION: Nonobstructive bowel gas pattern. Correlate for ileus or enteritis, follow-up as indicate d.
[2021-04-16 08:59] LABS: Lipase 2245 U/L (23-300)
--- NOTE | 2021-04-16 09:43 | CT ---
EXAMINATION TYPE: CT abdomen pelvis w con DATE OF EXAM: 04/16/2021 COMPARISON: CT 12/13/2018 and 08/29/2018 HISTORY: pancreatitis, leukocytosis CT DLP: 1330.1 mGycm Automated exposure control for dose reduction was used. TECHNIQUE: Helical acquisition of images from the lung bases through the pelvis have been completed. CONTRAST: Performed without Oral Contrast and with IV Contrast, patient injected with 100 mL of Isovue 300. FINDINGS: LUNG BASES: No significant abnormality is appreciated. AORTA: No significant abnormality is appreciated. LIVER/GB: No significant interval change is appreciated, patient is post cholecystectomy and there is a cystic focus in the liver. PANCREAS: Peripancreatic inflammatory changes are present, there is no evident abscess or pseudocyst formation. SPLEEN: Heterogeneous appearance is present, multiple foci of low-attenuation are present, likely pre sent on prior exam although there are differences in technique. ADRENALS: No significant abnormality is seen. KIDNEYS: No significant abnormality is seen. REPRODUCTIVE ORGANS: No significant abnormality is seen BOWEL: Diverticular changes associated with the sigmoid colon. FREE AIR: No Free Air visible. ASCITES: None visible. PELVIC ADENOPATHY: None visualized. RETROPERITONEAL ADENOPATHY: No Retroperitoneal Adenopathy visible. URINARY BLADDER: No significant abnormality is seen. OSSEOUS STRUCTURES: No significant abnormality is seen. IMPRESSION: FINDINGS CONSISTENT WITH PATIENT'S HISTORY PANCREATITIS. INDETERMINATE FINDINGS WITHIN THE SPLEEN ARE CHRONIC
[2021-04-16] MEDS ORDERED: METOCLOPRAMIDE 5 MG/ML 2 ML VIAL IVP STA (12:09)
[2021-04-16] MEDS ORDERED: MORPHINE SULFATE 4 MG/ML SYRINGE IV PRN (12:27)
[2021-04-16] MEDS ORDERED: NALOXONE 0.4 MG/ML 1 ML VIAL IV PRN (12:27)
[2021-04-16 13:06] LABS: Appearance,Urine Clear (Clear); Bilirubin,Urine Negative (Negative); Blood,Urine Negative (Negative); Color,Urine Light Yellow; Glucose,Urine (UA) Negative (Negative); Ketones,Urine 2+ (Negative); Leukocyte Esterase,Urine Negative (Negative); Nitrite,Urine Negative (Negative); Protein,Urine Negative (Negative); Specific Gravity,Urine 1.041 (1.001-1.035); Urobilinogen,Urine <2.0 mg/dL (<2.0)
[2021-04-16] MEDS: MEROPENEM 2 GM in SODIUM CHLORIDE 0.9% 100 ML IVPB SCH ×2 (16:07→23:01)
[2021-04-16] MEDS: ONDANSETRON 4 MG/2 ML VIAL IVP PRN ×2 (16:08→23:01)
[2021-04-16] MEDS: HYDROmorphone 0.5 MG/0.5 ML SYRINGE IVP PRN ×3 (16:08→23:00)
[2021-04-16] MEDS: SODIUM CHLORIDE 0.9% 1,000 ML IV SCH ×2 (16:09→23:01)
--- NOTE | 2021-04-16 17:15 | HP ---
HISTORY AND PHYSICAL DATE OF SERVICE: 04/16/2021 CHIEF COMPLAINT: Abdominal pain. HISTORY OF PRESENT ILLNESS: This 55-year-old woman with a past medical history of multiple medical problems, including recurrent pancreatitis, history of pneumonia, history of diverticulitis, appendectomy, has been followed by Dr. Hardin in the outpatient setting. The patient has also seen a physician at [facility]. Autoimmune pancreatitis was suspected. Currently the patient is complaining of severe abdominal pain which is felt in the anterior part of the abdomen for the last several days. The patient came to [facility] and was admitted for further evaluation and treatment. The patient's pain was radiating to the back, also. The patient had vomiting as well. The patient has severe pain. A CT scan of the abdomen and pelvis was also done which was suggestive of pancreatitis, and the patient was admitted for further evaluation and treatment. The option for referring elsewhere was offered to the patient, but the patient apparently refused a referral to any other hospital at this time. No chest pain. No palpitations. No fever. No cough. PAST MEDICAL HISTORY: History of recurrent pancreatitis, history of GERD, history of diverticulosis, history of appendectomy, breast surgery. MEDICATIONS: Oxybutynin, AcipHex, estradiol, Claritin, Flexeril. ALLERGIES: NONE. FAMILY HISTORY: History of colon cancer. SOCIAL HISTORY: No history of smoking. No history of alcohol intake. REVIEW OF SYSTEMS: ENT: No diminished hearing. No diminished vision. CARDIOVASCULAR SYSTEM: No angina, palpitations. RESPIRATORY SYSTEM: No cough, hemoptysis. GI: As mentioned earlier. : As mentioned earlier. NERVOUS SYSTEM: No numbness, weakness. ALLERGY/IMMUNOLOGY: No asthma or hay fever. MUSCULOSKELETAL: As mentioned earlier. HEMATOLOGY/ONCOLOGY: No history of anemia. ENDOCRINE: No history of diabetes or hypothyroidism. CONSTITUTIONAL: As mentioned earlier. DERMATOLOGY: Negative. RHEUMATOLOGY: Negative. PSYCHIATRY: As mentioned earlier. PHYSICAL EXAMINATION: Patient alert and oriented x3. Pulse 74, blood pressure 133/81, respiration 20, temperature 98 degrees, pulse ox 97% on room air. HEENT: Conjunctivae normal. NECK: No jugular venous distention. CARDIOVASCULAR: S1, S2 muffled. RESPIRATION: Breath sounds diminished at the bases. A few scattered rhonchi. ABDOMEN: Soft. Mild diffuse tenderness in the anterior part. No guarding, no rigidity. No mass palpable. LEGS: No edema. No swelling. NERVOUS SYSTEM: Higher functions as mentioned earlier. Moves all 4 limbs. No focal motor or sensory deficit. LYMPHATICS: No lymph node palpable in neck, axillae or groin. SKIN: No ulcer, rash, bleeding. JOINTS: No active deforming arthropathy. LABS: WBC 16.9, sodium 135, glucose 139. Amylase is 424 and lipase is 2245. COVID-19 is negative. ASSESSMENT: 1. Acute severe pancreatitis with possible sepsis, present on admission. 2. Increased white count. 3. Hyponatremia. 4. Elevated lipase, amylase. 5. History of autoimmune pancreatitis. 6. History of gastroesophageal reflux disease. 7. History of pneumonia. 8. History of duodenal ulcer. 9. History of Helicobacter pylori. 10.History of surgery. 11.History of cholecystectomy. 12.Obesity. Body mass index of 31.3. 13.FULL CODE. RECOMMENDATIONS AND DISCUSSION: In this 55-year-old woman who presented with multiple complex medical issues, we will monitor the patient closely, continue the current medications. Will keep the patient n.p.o. Symptomatic treatment of pain. Otherwise, I would also recommend a brief course of empiric antibiotics. Obtain cultures also. Otherwise, continue the IV fluids. Prognosis is guarded. Further recommendations to follow. MMODL / IJN: [id number] / MTDSharifa
[2021-04-16] MEDS: HEPARIN SODIUM,PORCINE/PF 5,000 UNIT/0.5 ML SYRINGE SQ SCH (20:46)
[2021-04-16] MEDS: PANTOPRAZOLE 40 MG/10 ML VIAL IVP SCH (20:46)
[2021-04-16] MEDS: OXYBUTYNIN CHLORIDE 5 MG TAB PO SCH (20:47)
[2021-04-16] MEDS: CYCLOBENZAPRINE 5 MG TAB PO SCH (20:47)
[2021-04-17] MEDS: HYDROmorphone 0.5 MG/0.5 ML SYRINGE IVP PRN ×6 (02:18→20:53)
[2021-04-17] MEDS: SODIUM CHLORIDE 0.9% 1,000 ML IV SCH ×2 (06:20→08:20)
[2021-04-17 06:33] LABS: Basophils % (A) 0 %; Eosinophils # (A) 0.3 k/uL (0-0.7); Eosinophils % (A) 2 %; HGB 13.2 gm/dL (11.4-16.0); Lymphocytes # (A) 0.8 k/uL (1.0-4.8); Lymphocytes % (A) 4 %; MCH 28.2 pg (25.0-35.0); MCV 85.6 fL (80.0-100.0); Mean Platelet Volume 7.3; Monocytes # (A) 0.8 k/uL (0-1.0); Monocytes % (A) 4 %; Neutrophils # (A) 17.3 k/uL (1.3-7.7); Neutrophils % (A) 89 %; Platelet Count 164 k/uL (150-450); RBC 4.68 m/uL (3.80-5.40); RDW 14.5 % (11.5-15.5); WBC 19.4 k/uL (3.8-10.6)
[2021-04-17 06:43] LABS: ALT 9 U/L (4-34); AST 19 U/L (14-36); African American GFR (CKD) >90 (>60 ml/min/1.73 sqM); Albumin 3.2 g/dL (3.5-5.0); Alkaline Phosphatase 83 U/L (38-126); Amylase 112 U/L (30-110); Anion Gap 8 mmol/L; Blood Urea Nitrogen 13 mg/dL (7-17); Calcium 8.4 mg/dL (8.4-10.2); Carbon Dioxide 23 mmol/L (22-30); Chloride 104 mmol/L (98-107); Glucose 92 mg/dL (74-99); Lipase 344 U/L (23-300); Non-African American GFR(CKD) >90 (>60 ml/min/1.73 sqM); Potassium 3.4 mmol/L (3.5-5.1); Sodium 135 mmol/L (137-145); Total Bilirubin 0.7 mg/dL (0.2-1.3)
[2021-04-17] MEDS: LORATADINE 10 MG TAB PO SCH (08:36)
[2021-04-17] MEDS: HEPARIN SODIUM,PORCINE/PF 5,000 UNIT/0.5 ML SYRINGE SQ SCH ×2 (08:36→20:01)
[2021-04-17] MEDS: MEROPENEM 2 GM in SODIUM CHLORIDE 0.9% 100 ML IVPB SCH ×3 (08:36→23:21)
[2021-04-17] MEDS: OXYBUTYNIN CHLORIDE 5 MG TAB PO SCH ×2 (08:36→20:02)
[2021-04-17] MEDS: PANTOPRAZOLE 40 MG/10 ML VIAL IVP SCH ×2 (08:37→20:00)
[2021-04-17] MEDS: ONDANSETRON 4 MG/2 ML VIAL IVP PRN ×2 (08:41→18:02)
[2021-04-17] MEDS ORDERED: Potassium Replacement Protocol 1 EACH MISC MISCELLANE PRN (10:16)
[2021-04-17] MEDS ORDERED: Magnesium Replacement Protocol 1 EACH MISC MISCELLANE PRN (10:16)
[2021-04-17] MEDS: ESTRADIOL TOPICAL SCH (10:44)
[2021-04-17] MEDS: HYDROcodone/APAP 5-325MG 1 EACH TAB PO PRN (12:52)
[2021-04-17] MEDS: SODIUM CHLORIDE 0.9% 1,000 ML with POTASSIUM CHLORIDE 20 MEQ IV SCH ×4 (13:42→20:23)
--- NOTE | 2021-04-17 13:55 | PN ---
PROGRESS NOTE DATE OF SERVICE: 04/17/2021 This 55-year-old woman was admitted with abdominal pain and acute pancreatitis. Patient had previous history of recurrent immune mediated pancreatitis, evaluated at [facility] also. Yesterday when the patient came in, the patient was offered transfer because of the lack of GI service over the weekend, but the patient refused and the patient is willing to stay. Currently the pain is slightly better. The pancreatic enzymes trending is also down. Patient started on empiric antibiotics. Cultures are negative so far. White count is slightly elevated. Infectious disease evaluation has been sought. PAST MEDICAL: Reviewed. REVIEW OF SYSTEMS: CARDIOVASCULAR No angina or palpitations. RESPIRATORY No cough, no hemoptysis. GI As mentioned earlier. No dysuria or hematuria. NERVOUS No numbness or weakness. CURRENT MEDICATIONS: Reviewed include [place], Flexeril, heparin, Dilaudid, Claritin, meropenem. Doses reviewed. Other medication also reviewed. PHYSICAL EXAMINATION: Alert and oriented x3. Pulse 81, blood pressure 130/79, respiration 18, temperature 98.2, pulse ox 97% on room air. HEENT: Conjunctivae normal. Oral mucosa moist. NECK: No jugular venous distention. No lymph node enlargement. CARDIOVASCULAR: S1, S2, muffled. No S3, no S4, RESPIRATORY: Diminished breath sounds at the bases. ABDOMEN: Soft. Mild diffuse discomfort. No guarding. No mass palpable. Bowel sounds present. No ascites. LEGS: No edema, no swelling. NERVOUS SYSTEM: No focal deficits. LAB STUDIES: WBC 19.4, mostly neutrophils. Sodium 135, potassium 3.4. Amylase is 112 and lipase is 334 showing diminishing trends. COVID-[address] scan reviewed personally. ASSESSMENT: 1. Acute severe pancreatitis with possible sepsis present on admission. Culture negative. 2. Increased WBC. 3. Hyponatremia. 4. Elevated lipase and amylase. 5. History of autoimmune pancreatitis. 6. History of GERD. 7. History of pneumonia. 8. History of duodenal ulcer. 9. History of H pylori. 10.History of cholecystectomy. 11.Hyponatremia. 12.Hypokalemia. 13.Obesity with body mass index of 31.3. 14.FULL CODE. RECOMMENDATIONS: Recommend to continue current management and symptomatic treatment. Recommend clear liquids carefully and advance diet as tolerated. Infectious disease evaluation. Repeat labs in the morning, amylase, lipase and CBC. Follow cultures. We will follow the replacement protocols. Continue to monitor. MMODL / IJN: [id number] /
[2021-04-17 13:58] LABS: Chol/HDL Ratio 2.21 Ratio; VLDL Calculation 8.32 mg/dL (5.00-40.00)
[2021-04-17] MEDS: CYCLOBENZAPRINE 5 MG TAB PO SCH (20:01)
[2021-04-18] MEDS: HYDROcodone/APAP 5-325MG 1 EACH TAB PO PRN ×2 (01:27→16:49)
[2021-04-18] MEDS: ONDANSETRON 4 MG/2 ML VIAL IVP PRN ×3 (01:27→18:49)
[2021-04-18] MEDS: SODIUM CHLORIDE 0.9% 1,000 ML with POTASSIUM CHLORIDE 20 MEQ IV SCH ×4 (03:19→23:18)
[2021-04-18 05:44] LABS: Basophils % (A) 0 %; Eosinophils # (A) 0.7 k/uL (0-0.7); Eosinophils % (A) 5 %; HCT 37.3 % (34.0-46.0); HGB 12.2 gm/dL (11.4-16.0); Lymphocytes # (A) 1.2 k/uL (1.0-4.8); Lymphocytes % (A) 10 %; MCH 28.2 pg (25.0-35.0); MCHC 32.6 g/dL (31.0-37.0); MCV 86.5 fL (80.0-100.0); Mean Platelet Volume 7.6; Monocytes # (A) 0.6 k/uL (0-1.0); Monocytes % (A) 5 %; Neutrophils # (A) 9.8 k/uL (1.3-7.7); Neutrophils % (A) 79 %; Platelet Count 147 k/uL (150-450); RBC 4.32 m/uL (3.80-5.40); RDW 14.5 % (11.5-15.5); WBC 12.4 k/uL (3.8-10.6)
[2021-04-18 06:01] LABS: ALT 8 U/L (4-34); AST 21 U/L (14-36); African American GFR (CKD) >90 (>60 ml/min/1.73 sqM); Albumin 2.8 g/dL (3.5-5.0); Alkaline Phosphatase 77 U/L (38-126); Anion Gap 6 mmol/L; Blood Urea Nitrogen 10 mg/dL (7-17); Calcium 8.4 mg/dL (8.4-10.2); Carbon Dioxide 24 mmol/L (22-30); Chloride 104 mmol/L (98-107); Glucose 88 mg/dL (74-99); Magnesium 1.9 mg/dL (1.6-2.3); Non-African American GFR(CKD) >90 (>60 ml/min/1.73 sqM); Potassium 3.5 mmol/L (3.5-5.1); Sodium 134 mmol/L (137-145); Total Bilirubin 0.6 mg/dL (0.2-1.3); Total Protein 5.6 g/dL (6.3-8.2)
--- NOTE | 2021-04-18 07:29 | P.CONS ---
History of Present Illness - Reason for Consult Consult date: 04/17/21 - History of Present Illness History of present illness : Patient is 55-year-old female with a past medical history significant for recurrent pancreatitis which has been thought to be related to idiopathic etiology and has been evaluated at [facility] and apparently she did have improvement her with the steroids and the patient did have a biopsy of the pancreae that was inconclusive or negative for any specific etiology patient due for follow-up with Dr. Sylvester every 6 months patient is presenting to the hospital yesterday for evaluation of abdominal pain that has been getting worse for the last 3 days pain has been mostly in the epigastric area describing to more of a sharp in nature intensity almost 9 out of 10 with episodes of vomitings no diarrhea patient denies having high-grade fever with the symptoms the patient was evaluated by the ER physician on arrival to the ER the patient was afebrile and no fever has been recorded subsequently patient did have white count 16 point tenderness up to 19.4 today patient did have normal liver enzymes amylase and lipase has was elevated however they're trending down urine has been negative dai PCR was negative patient did have a CT of abdominal pelvis finding consistent with the pancreatitis no evidence of any complication such as pseudocyst patient was started on meropenem 2 g every 8 hour infectious disease was consulted for pancreatitis and elevated WBC Review of system: CONSTITUTIONAL: Positive for weakness denies fever. EYES: No complaint. ENT: No complaint. RESPIRATORY: No complaint. CARDIOVASCULAR: No complaint. GENITOURINARY: No complaint. GASTROINTESTINAL as per history of present illness. MUSCULOSKELETAL: No complaint. INTEGUMENTARY: No complaint. PSYCHOLOGIC: No complaint. ENDOCRINE: No complaint. NEUROLOGIC: No complaint. Past medical history : Reviewed, documented below Past surgical history : Reviewed, documented below Social history: Reviewed, documented below Medications: Reviewed, as documented below EXAMINATION: Vital sigans= Reviewed and documented below GENERAL DESCRIPTION: Middle-aged female lying in bed, no distress. No tachypnea or accessory muscle of respiration use. HEENT: Shows Pallor , no scleral icterus. Oral mucous membrane is dry. NECK: Trachea central, no thyromegaly. LUNGS: Unlabored breathing. Clear to auscultation anteriorly. No wheeze or crackle. HEART: S1, S2, regular rate and rhythm. ABDOMEN: Soft, epigastric tenderness , guarding or rigidity EXTREMITIES: No edema of feet. SKIN: No rash, no masses palpable. NEUROLOGICAL: The patient is awake, alert, oriented x3, mood and affect normal. LABS AND RADIOLOGY: Reviewed results see below Assessment : Patient with a history of recurrent pancreatitis idiopathic etiology being admitted to hospital with another episode of pancreatitis, elevated white count more likely due to inflammation of the pancreas clinically not behaving as a pancreatic pseudocyst or any abscess CT abdominal pelvis did not show any features of complication associated with the pancreatitis and the patient currently do not have any obvious focus of infection Plan: 1-switch meropenem to 1 g every 8 hour 2-gentle IV fluid and bowel rest 3-check inflammatory markers We will follow on clinical condition and cultures to further adjust medication if needed Thank you for this consultation we will follow the patient along with you Past Medical History Past Medical History: Blood Disorder, Eye Disorder, GERD/Reflux, Pneumonia Additional Past Medical History / Comment(s): pancreatitis, duodenal ulcer, H. Pylori, diverticulitis History of Any Multi-Drug Resistant Organisms: None Reported Past Surgical History: Appendectomy, Breast Surgery, Cholecystectomy, Hysterectomy Additional Past Surgical History / Comment(s): breast biopsy, colonoscopy Past Anesthesia/Blood Transfusion Reactions: No Reported Reaction Past Psychological History: No Psychological Hx Reported Smoking Status: Never smoker Past Alcohol Use History: None Reported Past Drug Use History: None Reported - Past Family History Father Family Medical History: Cancer Additional Family Medical History / Comment(s): esophageal Mother Family Medical History: CVA/TIA Sister(s) Family Medical History: Cancer Additional Family Medical History / Comment(s): COLON Medications and Allergies Home Medications Medication Instructions Recorded Confirmed Type Loratadine [Claritin] 10 mg PO DAILY 03/20/14 04/16/21 History RABEprazole SODIUM [Aciphex] 20 mg PO BID 01/18/17 04/16/21 History estradioL [Divigel] 1 gm TOPICAL DAILY 03/13/18 04/16/21 History Cyclobenzaprine [Flexeril] 5 mg PO HS 04/16/21 04/16/21 History Oxybutynin Chloride 5 mg PO BID 04/16/21 04/16/21 History Allergies Allergy/AdvReac Type Severity Reaction Status Date / Time No Known Allergies Allergy Verified 04/16/21 09:41 Physical Exam Vitals: Vital Signs Temp Pulse Resp BP Pulse Ox 04/17/21 14:00 98.7 F 78 18 118/76 97 04/17/21 08:30 98.7 F 84 16 115/78 96 04/17/21 02:00 98.4 F 79 16 119/78 94 L 04/16/21 19:56 98.7 F 81 18 130/79 97 Intake and Output 04/17/21 04/17/21 04/17/21 06:59 14:59 22:59 Intake Total 1300 Balance 1300 Intake: Intake, IV Titration 1300 Amount Meropenem 2 gm In Sodium 100 Chloride 0.9% 100 ml @ 33 .3 mls/hr IVPB Q8HR CHERY Rx#:[id number] Sodium Chloride 0.9% 1, 1200 000 ml @ 150 mls/hr IV . Q6H40M CHERY Rx#:[id number] Other: # Voids 3 Results CBC & Chem 7: 04/18/21 05:28 04/18/21 05:28 Labs: Abnormal Lab Results - Last 24 Hours (Table) 04/17/21 04/17/21 Range/Units 06:19 06:19 WBC 19.4 H (3.8-10.6) k/uL Neutrophils # 17.3 H (1.3-7.7) k/uL Lymphocytes # 0.8 L (1.0-4.8) k/uL Sodium 135 L (137-145) mmol/L Potassium 3.4 L (3.5-5.1) mmol/L Total Protein 6.0 L (6.3-8.2) g/dL Albumin 3.2 L (3.5-5.0) g/dL HDL Cholesterol 62.00 H (40.00-60.00) mg/dL Amylase 112 H (30-110) U/L Lipase 344 H (23-300) U/L
[2021-04-18] MEDS: MEROPENEM 1 GM in SODIUM CHLORIDE 0.9% 100 ML IVPB SCH ×2 (08:10→17:01)
[2021-04-18] MEDS: LORATADINE 10 MG TAB PO SCH (08:11)
[2021-04-18] MEDS: PANTOPRAZOLE 40 MG/10 ML VIAL IVP SCH ×2 (08:11→20:26)
[2021-04-18] MEDS: HYDROmorphone 0.5 MG/0.5 ML SYRINGE IVP PRN ×2 (08:12→12:52)
[2021-04-18] MEDS: OXYBUTYNIN CHLORIDE 5 MG TAB PO SCH ×2 (08:12→20:26)
[2021-04-18] MEDS: HEPARIN SODIUM,PORCINE/PF 5,000 UNIT/0.5 ML SYRINGE SQ SCH ×2 (08:12→20:26)
[2021-04-18] MEDS: ESTRADIOL TOPICAL SCH (08:14)
[2021-04-18] MEDS: 0.9% NACL WITH KCL 20 MEQ/L 1,000 ML IV SCH ×2 (12:50→19:24)
--- NOTE | 2021-04-18 13:58 | P.CONS ---
History of Present Illness - Reason for Consult Consult date: 04/18/21 Pancreatitis Requesting physician: Sherri Martinez - Chief Complaint Abdominal pain - History of Present Illness This 55-year-old female who presented to the emergency department 2 days ago with complaints of abdominal pain mostly in the epigastric and right upper quadrant that is consistent with her pain associated with pancreatitis. Patient has a history of pancreatitis diagnosed approximately 8 years ago and was following with Lilly Bautista in GI office. She's had multiple episodes since where she has been hospitalized. Her last hospitalization was in August 2018. She has followed up with [facility] and had an EUS which was negative for autoimmune pancreatitis. She has no previous history of heavy alcoholism or family history of pancreatitis. States the pain is getting slightly better, she's been on a clear liquid diet and tolerating well. On presentation to the emergency department she had an amylase of 424 and lipase of 2245 which came down yesterday to 112 and 344 respectively. She's had no elevation in her LFTs. She is denying any fevers or chills, no nausea or vomiting. Review of Systems REVIEW OF SYSTEMS: CARDIOPULMONARY: No chest pain or shortness of breath. Gastrointestinal: Right upper quadrant and epigastric pain. Nausea but no vomiting. No hematemesis, coffee-ground emesis. No rectal bleeding, or melena. GENITOURINARY: No dysuria or hematuria. MUSCULOSKELETAL: Reports normal range of motion., Joint pain. SKIN: No rashes. No jaundice. ENDOCRINE: No chills, fevers. No excessive weight gain or loss. No polydipsia or polyuria. PSYCHIATRIC: Unremarkable. NEUROLOGY: No change in mental status. Denies dizziness, headache. ENT: Vision unremarkable. CONSTITUTIONAL: No recent weight loss. No fever, chills, night sweats. Past Medical History Past Medical History: Blood Disorder, Eye Disorder, GERD/Reflux, Pneumonia Additional Past Medical History / Comment(s): pancreatitis, duodenal ulcer, H. Pylori, diverticulitis History of Any Multi-Drug Resistant Organisms: None Reported Past Surgical History: Appendectomy, Breast Surgery, Cholecystectomy, Hysterectomy Additional Past Surgical History / Comment(s): breast biopsy, colonoscopy Past Anesthesia/Blood Transfusion Reactions: No Reported Reaction Past Psychological History: No Psychological Hx Reported Smoking Status: Never smoker Past Alcohol Use History: None Reported Past Drug Use History: None Reported - Past Family History Father Family Medical History: Cancer Additional Family Medical History / Comment(s): esophageal Mother Family Medical History: CVA/TIA Sister(s) Family Medical History: Cancer Additional Family Medical History / Comment(s): COLON Medications and Allergies Home Medications Medication Instructions Recorded Confirmed Type Loratadine [Claritin] 10 mg PO DAILY 03/20/14 04/16/21 History RABEprazole SODIUM [Aciphex] 20 mg PO BID 01/18/17 04/16/21 History estradioL [Divigel] 1 gm TOPICAL DAILY 03/13/18 04/16/21 History Cyclobenzaprine [Flexeril] 5 mg PO HS 04/16/21 04/16/21 History Oxybutynin Chloride 5 mg PO BID 04/16/21 04/16/21 History Allergies Allergy/AdvReac Type Severity Reaction Status Date / Time No Known Allergies Allergy Verified 04/16/21 09:41 Physical Exam Vitals: Vital Signs Temp Pulse Resp BP Pulse Ox 04/18/21 07:34 98.1 F 72 17 132/85 95 04/18/21 02:00 98.9 F 92 18 122/75 95 04/17/21 20:00 99.2 F 93 16 116/74 94 L 04/17/21 14:00 98.7 F 78 18 118/76 97 Intake and Output 04/17/21 04/18/21 04/18/21 22:59 06:59 14:59 Intake Total 120 Balance 120 Intake: Oral 120 Other: Voiding Method Toilet # Voids 2 1 2 General appearance: The patient is alert, oriented, appears in no acute distress. HET: Head is normocephalic and atraumatic. Conjunctiva pink. Sclera anicteric. Neck: Supple without lymphadenopathy. Trachea midline. Heart: S1 S2. Regular rate and rhythm. Lungs: Clear to auscultation. Abdomen: Soft, right upper quadrant and epigastric tenderness, nondistended with bowel sounds. No guarding or rigidity. Skin: No rashes. No jaundice. Extremities: Normal skin color and turgor. No pedal edema. Neurological: No focal deficits. Alert and oriented 3.. Results CBC & Chem 7: 04/18/21 05:28 04/18/21 05:28 Labs: Abnormal Lab Results - Last 24 Hours (Table) 04/17/21 04/18/21 04/18/21 Range/Units 06:19 05:28 05:28 WBC 12.4 H (3.8-10.6) k/uL Plt Count 147 L (150-450) k/uL Neutrophils # 9.8 H (1.3-7.7) k/uL Sodium 134 L (137-145) mmol/L Total Protein 5.6 L (6.3-8.2) g/dL Albumin 2.8 L (3.5-5.0) g/dL HDL Cholesterol 62.00 H (40.00-60.00) mg/dL CT scan - abdomen: report reviewed (Peripancreatic inflammatory changes are present, there is no evident abscess or pseudocyst formation) Assessment and Plan (1) Acute pancreatitis Narrative/Plan: 55-year-old female with past medical history that includes pancreatitis first diagnosed 8 years ago with subsequent hospitalizations since. Last hospitalization August 2018. Patient has had extensive workup including f ollow-up at [facility] with the EUS which she states was negative for autoimmune pancreatitis. At this time unknown reason for pancreatitis. No previous history of alcoholism or family history of pancreatitis. On admission patient was noted to have elevation in both amylase and lipase. LFTs have been normal. Patient was also noted to have leukocytosis on admission with a WBC of 16.9. Repeat labs show improvement in her amylase and lipase as well as WBC. She's been afebrile. Pain is improving. Current Visit: Yes Status: Acute Code(s): K85.90 - ACUTE PANCREATITIS WITHOUT NECROSIS OR INFECTION, UNSP SNOMED Code(s): 282131639 (2) Leukocytosis Current Visit: Yes Status: Acute Code(s): D72.829 - ELEVATED WHITE BLOOD CELL COUNT, UNSPECIFIED SNOMED Code(s): 821608535 Plan: 1. Continue symptomatic and supportive care 2. Continue IV hydration 2. Antiemetics as needed 3. Pain medication as needed 4. Continue with clear liquid diet, advance to full liquids tomorrow 5. Repeat lipase in morning Thank you for this consultation, we'll continue to follow. Dr. Giuseppe Hardin I agree with the dictator's note, documented as a scribe by Akua Pisano.
[2021-04-18] MEDS: CYCLOBENZAPRINE 5 MG TAB PO SCH (20:26)
--- NOTE | 2021-04-18 20:30 | PN ---
PROGRESS NOTE DATE OF SERVICE: 04/18/2021 This 55-year-old woman who was admitted with abdominal pain and acute recurrent pancreatitis also had possible autoimmune pancreatitis. The patient was given empiric antibiotics. Infectious Disease and Gastroenterology are following the patient closely. Gastroenterology has recommended continuing the hydration and the rest of the medications. Currently the patient is complaining of some minimal abdominal pain. Diet is being advanced. No chest pain. No palpitations. No fever. PHYSICAL EXAMINATION: Alert and oriented x3. Pulse 85, blood pressure 122/77, respiration 12, temperature 97.8, pulse ox 94% on room air. HEENT: Conjunctivae normal. NECK: No jugular venous distention. CARDIOVASCULAR: S1, S2 muffled. RESPIRATION: Breath sounds diminished at the bases. A few scattered rhonchi. ABDOMEN: Soft. Mild diffuse tenderness. LEGS: No edema. No swelling. NERVOUS SYSTEM: No focal deficit. LAB STUDIES: WBC 12.4. Sodium 134, potassium 3.5. Amylase and lipase noted. ASSESSMENT: 1. Acute severe pancreatitis with possible sepsis, present on admission. Culture negative. 2. Increased white count. 3. Hyponatremia. 4. History of autoimmune pancreatitis. 5. Elevated amylase, lipase. 6. History of gastroesophageal reflux disease. 7. History of pneumonia. 8. History of duodenal ulcer. 9. History of Helicobacter pylori. 10.History of cholecystectomy. 11.Hypokalemia. 12.Obesity with body mass index of 31.3. 13.FULL CODE. RECOMMENDATIONS AND DISCUSSION: I recommend to continue current medications, continue with symptomatic treatment. Abdominal CT scan reviewed. Will repeat enzymes tomorrow. Further recommendations to follow. MMODL / IJN: [id number] /
[2021-04-19] MEDS: MEROPENEM 1 GM in SODIUM CHLORIDE 0.9% 100 ML IVPB SCH ×4 (00:11→23:49)
[2021-04-19] MEDS: HYDROcodone/APAP 5-325MG 1 EACH TAB PO PRN ×4 (02:23→23:54)
[2021-04-19] MEDS: 0.9% NACL WITH KCL 20 MEQ/L 1,000 ML IV SCH ×3 (04:33→23:49)
[2021-04-19 06:24] LABS: HCT 37.5 % (34.0-46.0); HGB 12.8 gm/dL (11.4-16.0); MCH 28.9 pg (25.0-35.0); MCHC 34.1 g/dL (31.0-37.0); MCV 84.9 fL (80.0-100.0); Mean Platelet Volume 7.6; Platelet Count 165 k/uL (150-450); RBC 4.42 m/uL (3.80-5.40); RDW 14.4 % (11.5-15.5); WBC 11.3 k/uL (3.8-10.6)
[2021-04-19 07:01] LABS: ALT 9 U/L (4-34); AST 20 U/L (14-36); African American GFR (CKD) >90 (>60 ml/min/1.73 sqM); Alkaline Phosphatase 90 U/L (38-126); Amylase 36 U/L (30-110); Anion Gap 7 mmol/L; Blood Urea Nitrogen 7 mg/dL (7-17); Calcium 8.4 mg/dL (8.4-10.2); Carbon Dioxide 24 mmol/L (22-30); Chloride 103 mmol/L (98-107); Glucose 76 mg/dL (74-99); Lipase 33 U/L (23-300); Non-African American GFR(CKD) >90 (>60 ml/min/1.73 sqM); Potassium 3.7 mmol/L (3.5-5.1); Sodium 134 mmol/L (137-145); Total Bilirubin 0.5 mg/dL (0.2-1.3)
[2021-04-19] MEDS: HEPARIN SODIUM,PORCINE/PF 5,000 UNIT/0.5 ML SYRINGE SQ SCH ×2 (08:44→21:03)
[2021-04-19] MEDS: PANTOPRAZOLE 40 MG/10 ML VIAL IVP SCH ×2 (08:44→21:03)
[2021-04-19] MEDS: OXYBUTYNIN CHLORIDE 5 MG TAB PO SCH ×2 (08:44→21:03)
[2021-04-19] MEDS: LORATADINE 10 MG TAB PO SCH (08:45)
[2021-04-19] MEDS: ESTRADIOL TOPICAL SCH (09:00)
--- NOTE | 2021-04-19 13:47 | P.PN ---
Subjective Progress Note Date: 04/19/21 Principal diagnosis: Pancreatitis This is a 55-year-old female who was admitted with acute pancreatitis with a past history of recurrent pancreatitis. His been tolerating her clear liquids. She has not had much of an appetite. She states her abdominal pain is definitely improving. She has some nausea but no vomiting. Amylase and lipase are both within normal limits. She's been afebrile. WBC 11.3, hemoglobin 12.8 amylase 36 lipase 33. Objective - Vital Signs Vital signs: Vital Signs Temp 98.5 F 04/19/21 02:00 Pulse 73 04/19/21 02:00 Resp 16 04/19/21 02:00 BP 107/73 04/19/21 02:00 Pulse Ox 95 04/19/21 02:00 Intake & Output 04/18/21 04/19/21 04/19/21 18:59 06:59 18:59 Intake Total 120 120 Balance 120 120 Intake: Oral 120 120 Other: Voiding Method Toilet # Voids 2 1 - Exam General appearance: The patient is alert, oriented, appears in no acute distress. HET: Head is normocephalic and atraumatic. Conjunctiva pink. Sclera anicteric. Neck: Supple without lymphadenopathy. Abdomen: Soft, mild right upper quadrant and epigastric tenderness, nondistended with bowel sounds. No guarding or rigidity. Extremities: Normal skin color and turgor. No pedal edema Skin: No rashes, no jaundice Neurological: No focal deficits. Alert and oriented -3. - Labs CBC & Chem 7: 04/19/21 05:51 04/19/21 05:51 Labs: Abnormal Lab Results - Last 24 Hours (Table) 04/19/21 04/19/21 Range/Units 05:51 05:51 WBC 11.3 H (3.8-10.6) k/uL Sodium 134 L (137-145) mmol/L Creatinine 0.49 L (0.52-1.04) mg/dL Total Protein 6.0 L (6.3-8.2) g/dL Albumin 3.0 L (3.5-5.0) g/dL Assessment and Plan (1) Acute pancreatitis Narrative/Plan: 55-year-old female with past medical history that includes pancreatitis first diagnosed 8 years ago with subsequent hospitalizations since. Last hospitalization August 2018. Patient has had extensive workup including foll ow-up at [facility] with the EUS which she states was negative for autoimmune pancreatitis. At this time unknown reason for pancreatitis. No previous history of alcoholism or family history of pancreatitis. On admission patient was noted to have elevation in both amylase and lipase. LFTs have been normal. Patient was also noted to have leukocytosis on admission with a WBC of 16.9. Repeat labs show improvement in her amylase and lipase as well as WBC. She's been afebrile. Pain is improving. Current Visit: Yes Status: Acute Code(s): K85.90 - ACUTE PANCREATITIS WITHOUT NECROSIS OR INFECTION, UNSP SNOMED Code(s): 916687858 (2) Leukocytosis Current Visit: Yes Status: Acute Code(s): D72.829 - ELEVATED WHITE BLOOD CELL COUNT, UNSPECIFIED SNOMED Code(s): 633055709 Plan: 1. Continue symptomatic and supportive care 2. Continue IV hydration 2. Antiemetics as needed 3. Pain medication as needed 4. The patient's to full liquid diet 5. Encourage ambulation 6. Patient is able to tolerate full liquid diet, she may be discharged home from a gastroenterology standpoint Thank you for this consultation. Dr. Giuseppe Hardin I agree with the dictator's note, documented as a scribe by Akua Pisano.
--- NOTE | 2021-04-19 14:42 | PN ---
PROGRESS NOTE DATE OF SERVICE: 04/19/2021 REASON FOR FOLLOWUP: Leukocytosis secondary to pancreatitis. INTERVAL HISTORY: The patient is afebrile. The patient's abdominal pain has slightly decreased in intensity. The patient denies having any chest pain, shortness of breath or cough. Some nausea but no vomiting. No diarrhea. PHYSICAL EXAMINATION: Blood pressure 153/94, pulse 83, temperature 98.5. She is 95% on room air. General description is a middle-aged female up in the room in no distress. RESPIRATORY SYSTEM: Unlabored breathing. Clear to auscultation anteriorly. HEART: S1, S2. Regular rate and rhythm. ABDOMEN: Soft. Mildly tender. No guarding or rigidity. EXTREMITIES: No edema of the feet. LABS: Hemoglobin is white count 11.3, creatinine 0.49. DIAGNOSTIC IMPRESSION AND PLAN: Patient with leukocytosis secondary to pancreatitis in this patient currently covered with meropenem; to continue while monitoring clinical course closely. Continue supportive care. MMODL / IJN: [id number] /
[2021-04-19] MEDS: ONDANSETRON 4 MG/2 ML VIAL IVP PRN (16:55)
--- NOTE | 2021-04-19 17:28 | PN ---
PROGRESS NOTE DATE OF SERVICE: 04/19/2021 This 55-year-old woman who was admitted with recurrent pancreatitis is being closely monitored. No chest pain. No palpitations. No fever. Patient is still complaining of some abdominal discomfort. Gastroenterology is following the patient closely. PHYSICAL EXAMINATION: Alert and oriented x3. Pulse 88, blood pressure 122/84, respiration 18, temperature 98.2, pulse ox 97% on room air. HEENT: Conjunctivae normal. NECK: No jugular venous distention. CARDIOVASCULAR: S1, S2 muffled. RESPIRATION: Breath sounds diminished at the bases. No rhonchi. No crackles. ABDOMEN: Soft. Mild diffuse discomfort present in the left upper quadrant. Otherwise, no guarding or rigidity. No mass palpable. Bowel sounds present. LEGS: No edema. No swelling. NERVOUS SYSTEM: No focal deficit. LABS: WBC 11.6, sodium 134, potassium 3.7. Amylase is 36, lipase is 33. ASSESSMENT: 1. Acute severe pancreatitis with possible sepsis, present on admission. Culture negative. 2. Increased white count. 3. Hyponatremia. 4. History of autoimmune pancreatitis. 5. Elevated amylase and lipase. 6. History of gastroesophageal reflux disease. 7. History of pneumonia. 8. History of duodenal ulcer. 9. History of Helicobacter pylori. 10.History of cholecystectomy. 11.Hypokalemia. 12.Obesity with body mass index of 31.3. 13.FULL CODE. RECOMMENDATIONS AND DISCUSSION: I recommend to continue current medications, continue with symptomatic treatment. Continue with the empiric antibiotics. Repeat labs tomorrow. Advance diet cautiously. Closely follow with Gastroenterology. Guarded prognosis. Further recommendations to follow. MMODL / IJN: [id number] /
[2021-04-19 20:06] VITALS: RESP 16
[2021-04-19] MEDS: CYCLOBENZAPRINE 5 MG TAB PO SCH (21:03)
[2021-04-20] MEDS: 0.9% NACL WITH KCL 20 MEQ/L 1,000 ML IV SCH (05:28)
[2021-04-20] MEDS: HYDROcodone/APAP 5-325MG 1 EACH TAB PO PRN (05:30)
[2021-04-20 05:49] LABS: Basophils % (A) 1 %; Eosinophils # (A) 0.7 k/uL (0-0.7); Eosinophils % (A) 12 %; HCT 38.4 % (34.0-46.0); HGB 12.5 gm/dL (11.4-16.0); Lymphocytes # (A) 1.3 k/uL (1.0-4.8); Lymphocytes % (A) 21 %; MCH 27.6 pg (25.0-35.0); MCHC 32.6 g/dL (31.0-37.0); MCV 84.6 fL (80.0-100.0); Mean Platelet Volume 7.5; Monocytes # (A) 0.3 k/uL (0-1.0); Monocytes % (A) 5 %; Neutrophils # (A) 3.6 k/uL (1.3-7.7); Neutrophils % (A) 58 %; Platelet Count 191 k/uL (150-450); RBC 4.54 m/uL (3.80-5.40); RDW 14.5 % (11.5-15.5); WBC 6.2 k/uL (3.8-10.6)
[2021-04-20 06:17] LABS: ALT 10 U/L (4-34); AST 19 U/L (14-36); African American GFR (CKD) >90 (>60 ml/min/1.73 sqM); Albumin 2.8 g/dL (3.5-5.0); Alkaline Phosphatase 71 U/L (38-126); Amylase 36 U/L (30-110); Anion Gap 5 mmol/L; Blood Urea Nitrogen 6 mg/dL (7-17); Calcium 8.5 mg/dL (8.4-10.2); Carbon Dioxide 27 mmol/L (22-30); Chloride 105 mmol/L (98-107); Glucose 92 mg/dL (74-99); Lipase 36 U/L (23-300); Non-African American GFR(CKD) >90 (>60 ml/min/1.73 sqM); Potassium 4.1 mmol/L (3.5-5.1); Sodium 137 mmol/L (137-145); Total Bilirubin 0.3 mg/dL (0.2-1.3); Total Protein 5.5 g/dL (6.3-8.2)
[2021-04-20] MEDS: PANTOPRAZOLE 40 MG/10 ML VIAL IVP SCH (08:11)
[2021-04-20] MEDS: HEPARIN SODIUM,PORCINE/PF 5,000 UNIT/0.5 ML SYRINGE SQ SCH (08:11)
[2021-04-20] MEDS: LORATADINE 10 MG TAB PO SCH (08:12)
[2021-04-20] MEDS: MEROPENEM 1 GM in SODIUM CHLORIDE 0.9% 100 ML IVPB SCH (08:12)
[2021-04-20] MEDS: ESTRADIOL TOPICAL SCH (08:12)
[2021-04-20] MEDS: OXYBUTYNIN CHLORIDE 5 MG TAB PO SCH (08:14)
[2021-04-20 09:36] VITALS: BP 131/85; PULSE 74; TEMP 97.7
--- NOTE | 2021-04-20 14:27 | PN ---
PROGRESS NOTE DATE OF SERVICE: 04/20/2021. REASON FOR FOLLOWUP: Leukocytosis. INTERVAL HISTORY: Patient was seen on rounds this morning. The patient denies having any chest pain or shortness of breath or cough. Abdominal pain has been , has been tolerating her diet. No vomiting or diarrhea. PHYSICAL EXAMINATION: Blood pressure 131/85, pulse of 74, temperature 97.7. She is 98% on room air. General description is a middle-aged female up in the room in no distress. Respiratory system: Unlabored breathing, clear to auscultation anteriorly. Heart S1, S2. Regular rate and rhythm. Abdomen soft, no guarding. No rigidity. LABS: White count has normalized. DIAGNOSTIC IMPRESSION AND PLAN: Patient with white count, more likely acute pancreatitis. Clinical suspicion low for infective pancreatitis pseudocyst. Recommend no antibiotic on discharge and close outpatient followup with her GI. Continue supportive care. MMODL / IJN: [id number] /
--- NOTE | 2021-04-21 10:28 | DS ---
DISCHARGE SUMMARY DATE OF SERVICE: 04/20/2021 FINAL DIAGNOSES: 1. Acute severe pancreatitis with possible sepsis, present on admission. Culture negative. 2. Increased WBC. 3. Hyponatremia. 4. History of autoimmune pancreatitis. 5. Elevated amylase lipase. 6. Improved. 7. History of gastroesophageal reflux disease. 8. History of pneumonia. 9. History of duodenal ulcer. 10.History of Helicobacter pyloric. 11.History of cholecystectomy. 12.Hypokalemia. 13.Obesity with body mass index of 31.6. 14.FULL CODE. DISCHARGE DISPOSITION: The patient will be discharged in stable condition with guarded prognosis. HISTORY OF PRESENT ILLNESS: This 55-year-old woman with past medical history of multiple medical problems admitted with recurrent pancreatitis. The patient was treated symptomatically. Gastroenterology service is not available in the beginning of the admission, but later Dr. Hardin saw the patient and recommended continue the current medication. Dr. Clark also saw the patient for Infectious Disease point of view. Cultures are negative. On exam, vitals signs are stable. Cardiovascular S1, S2. Abdomen soft. Mild diffuse discomfort. Legs: No edema. No swelling. Nervous system: No focal deficits. DISCHARGE DISPOSITION: Patient discharged in stable condition. Guarded prognosis with the following advice and medications: 1. Diet is soft. 2. Follow up with Dr. Shahbaz Hardin in 1 week. 3. Follow up with Dr. Brower the primary physician, labs CBC, CMP. DISCHARGE MEDICATIONS: 1. Rabeprazole 20 mg p.o. b.i.d. 2. Claritin 10 mg daily. 3. Divigel 1 g topical. 4. Flexeril 5 mg q.h.s. 5. Oxybutynin 5 mg p.o. b.i.d. 6. [place] 5 mg q.6 p.r.n. MMODL / IJN: [id number] /
== END 2021-04-20 12:45 | disposition home or self-care (01) | DRG 871 ==
LOC: EC 07:44 → 6PED 12:13 → OBSVTOIN 04-18 12:32
PROVIDERS: ADMIT Hospitalist; ATTEND Hospitalist
DX: A41.9 Sepsis, unspecified organism (principal); K85.90 Acute pancreatitis without necrosis or infection, unspecified; E87.1 Hypo-osmolality and hyponatremia; K86.1 Other chronic pancreatitis; D89.89 Other specified disorders involving the immune mechanism, not elsewhere classified; E66.9 Obesity, unspecified; E87.6 Hypokalemia; Z68.31 Body mass index [BMI] 31.0-31.9, adult; Z86.19 Personal history of other infectious and parasitic diseases; Z87.01 Personal history of pneumonia (recurrent); Z87.11 Personal history of peptic ulcer disease; Z20.822 Contact with and (suspected) exposure to COVID-19; Z90.49 Acquired absence of other specified parts of digestive tract; Z90.710 Acquired absence of both cervix and uterus; Z80.0 Family history of malignant neoplasm of digestive organs; K21.9 Gastro-esophageal reflux disease without esophagitis; R74.8 Abnormal levels of other serum enzymes; Z82.3 Family history of stroke
CPT/HCPCS: 36415; 74018; 74177; 80053; 80061; 81003; 82150; 83690; 83735; 85025; 85027; 87635; 93005; 96361; 96374; 96375; 99285

== ENCOUNTER → 2021-08-16 | Outpatient (CLI) | payer BC | END | disposition home or self-care (01) | LOC: LABWHC1 14:30 | PROVIDERS: ATTEND Internal Medicine Gastroenterology | DX: K86.1 Other chronic pancreatitis (principal) | CPT/HCPCS: 36415; 82306; 83036 ==

== ENCOUNTER → 2021-11-30 | Outpatient (CLI) | payer BC ==
[~2021-11-30] MED LIST changes: +BEBTELOVIMAB (EUA) 175 MG/2 ML VIAL IV NR; -LACTATED RINGERS 1,000 ML IV SCH; -LIDOCAINE 1% 20 ML VIAL (10MG/ML) FOR IV START INTRADERMA PRN; +SODIUM CHLORIDE 0.9% 500 ML 500 ML in EMPTY BAG 1 BAG IV PRN
[2021-11-30 14:01] VITALS: BP 126/82; PULSE 80; RESP 16; TEMP 98
== END ==
LOC: PROCWHC3 13:00
PROVIDERS: ATTEND Physician Assistant
DX: U07.1 COVID-19 (principal); E66.9 Obesity, unspecified; Z68.31 Body mass index [BMI] 31.0-31.9, adult
CPT/HCPCS: Q0222; M0222

== ENCOUNTER → 2022-10-11 | Outpatient (CLI) | payer BC ==
[2022-10-11 09:02] LABS: Phosphorus 2.7 mg/dL (2.5-4.5)
== END | disposition home or self-care (01) ==
LOC: LABWHC1 07:27
PROVIDERS: ATTEND Surgery
DX: E21.3 Hyperparathyroidism, unspecified (principal)
CPT/HCPCS: 36415; 82306; 82310; 82330; 83970; 84100

== ENCOUNTER 2022-10-25 07:59 | Inpatient (IN) | payer BC ==
[2022-10-25] MEDS ORDERED: SODIUM CHLORIDE 0.9% 2,000 ML IV STA (08:13)
[2022-10-25] MEDS ORDERED: ONDANSETRON 4 MG/2 ML VIAL IVP STA (08:13)
[2022-10-25] MEDS ORDERED: KETOROLAC 15 MG/ML 1 ML VIAL IVP STA (08:13)
[2022-10-25] MEDS ORDERED: HYDROmorphone 0.5 MG/0.5 ML SYRINGE IVP STA (08:14)
[2022-10-25 08:34] LABS: Basophils % (A) 0 %; Eosinophils # (A) 0.1 k/uL (0-0.7); Eosinophils % (A) 1 %; HCT 40.8 % (34.0-46.0); HGB 13.8 gm/dL (11.4-16.0); Lymphocytes # (A) 1.1 k/uL (1.0-4.8); Lymphocytes % (A) 9 %; MCH 27.9 pg (25.0-35.0); MCHC 33.8 g/dL (31.0-37.0); MCV 82.3 fL (80.0-100.0); Mean Platelet Volume 7.8; Monocytes # (A) 0.5 k/uL (0-1.0); Monocytes % (A) 4 %; Neutrophils # (A) 10.7 k/uL (1.3-7.7); Neutrophils % (A) 86 %; Platelet Count 189 k/uL (150-450); RBC 4.96 m/uL (3.80-5.40); RDW 14.8 % (11.5-15.5); WBC 12.5 k/uL (3.8-10.6)
[2022-10-25 08:46] LABS: ALT 19 U/L (4-34); AST 21 U/L (14-36); African American GFR (CKD) >90 (>60 ml/min/1.73 sqM); Albumin 3.8 g/dL (3.5-5.0); Alkaline Phosphatase 83 U/L (38-126); Anion Gap 8 mmol/L; Blood Urea Nitrogen 16 mg/dL (7-17); Carbon Dioxide 26 mmol/L (22-30); Chloride 104 mmol/L (98-107); Glucose 127 mg/dL (74-99); Non-African American GFR(CKD) 86 (>60 ml/min/1.73 sqM); Potassium 4.1 mmol/L (3.5-5.1); Sodium 138 mmol/L (137-145); Total Bilirubin 0.6 mg/dL (0.2-1.3); Total Protein 6.8 g/dL (6.3-8.2)
[2022-10-25 08:51] LABS: Amylase 375 U/L (30-110)
--- NOTE | 2022-10-25 08:55 | ED ---
Abdominal Pain HPI - General Chief Complaint: Abdominal Pain Stated Complaint: Abd pain Time Seen by Provider: 10/25/22 08:09 Source: patient, RN notes reviewed Mode of arrival: ambulatory Limitations: no limitations - History of Present Illness Initial Comments: 56-year-old female presents emergency Department with chief complaint of abdominal pain. Patient states that she's been having vomiting, abdominal last 24 hours. 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 Patient states this pain feels very similar does radiate to her back she has no chest pain or shortness of breath she states that she had a normal bowel movement yesterday which she normally is constipated. She has no dysuria no hematuria she's had a prior cholecystomy, appendectomy. - Related Data Home Medications Medication Instructions Recorded Confirmed Loratadine [Claritin] 10 mg PO DAILY 03/20/14 04/16/21 RABEprazole SODIUM [Aciphex] 20 mg PO BID 01/18/17 04/16/21 estradioL [Divigel] 1 gm TOPICAL DAILY 03/13/18 04/16/21 Cyclobenzaprine [Flexeril] 5 mg PO HS 04/16/21 04/16/21 Oxybutynin Chloride 5 mg PO BID 04/16/21 04/16/21 Previous Rx's Medication Instructions Recorded HYDROcodone/APAP 5-325MG [[place] 1 each PO Q6HR PRN #12 tab 04/20/21 5-325] Allergies Allergy/AdvReac Type Severity Reaction Status Date / Time No Known Allergies Allergy Verified 10/25/22 08:06 Review of Systems ROS Statement: Those systems with pertinent positive or pertinent negative responses have been documented in the HPI. ROS Other: All systems not noted in ROS Statement are negative. Past Medical History Past Medical History: Blood Disorder, Eye Disorder, GERD/Reflux, Pneumonia Additional Past Medical History / Comment(s): pancreatitis, duodenal ulcer, H. Pylori, diverticulitis History of Any Multi-Drug Resistant Organisms: None Reported Past Surgical History: Appendectomy, Breast Surgery, Cholecystectomy, Hysterectomy Additional Past Surgical History / Comment(s): breast biopsy, colonoscopy Past Anesthesia/Blood Transfusion Reactions: No Reported Reaction Past Psychological History: No Psychological Hx Reported Smoking Status: Never smoker Past Alcohol Use History: None Reported Past Drug Use History: None Reported - Past Family History Father Family Medical History: Cancer Additional Family Medical History / Comment(s): esophageal Mother Family Medical History: CVA/TIA Sister(s) Family Medical History: Cancer Additional Family Medical History / Comment(s): COLON General Exam Limitations: no limitations General appearance: alert, in no apparent distress Head exam: Present: atraumatic, normocephalic, normal inspection Eye exam: Present: normal appearance, PERRL, EOMI. Absent: scleral icterus, conjunctival injection, periorbital swelling Respiratory exam: Present: normal lung sounds bilaterally. Absent: respiratory distress, wheezes, rales, rhonchi, stridor Cardiovascular Exam: Present: regular rate, normal rhythm, normal heart sounds. Absent: systolic murmur, diastolic murmur, rubs, gallop, clicks GI/Abdominal exam: Present: soft, tenderness, normal bowel sounds. Absent: distended, guarding, rebound, rigid Course Vital Signs 10/25/22 10/25/22 08:02 08:21 Temperature 98.1 F 97.5 F L Pulse Rate 71 57 L Respiratory 22 20 Rate Blood Pressure 118/78 122/79 O2 Sat by Pulse 99 99 Oximetry Medical Decision Making - Medical Decision Making Was pt. sent in by a medical professional or institution (, PA, BILINGUAL MEDICAL ASSISTANT, urgent care, hospital, or half-way...) When possible be specific @ -No Did you speak to anyone other than the patient for history (EMS, parent, family, police, friend...)? What history was obtained from this source @ -No Did you review nursing and triage notes (agree or disagree)? Why? @ -I reviewed and agree with nursing and triage notes Were old charts reviewed (outside hosp., previous admission, EMS record, old EKG, old radiological studies, urgent care reports/EKG's, half-way records)? Report findings @ -No old charts were reviewed Differential Diagnosis (chest pain, altered mental status, abdominal pain women, abdominal pain men, vaginal bleeding, weakness, fever, dyspnea, syncope, headache, dizziness, GI bleed, back pain, seizure, CVA, palpatations, mental health, musculoskeletal)? @ -Differential Abdominal Pain Women: Appendicitis, Cholecystitis, diverticulosis, ischemic bowel, pancreatitis, hepatitis, UTI, gastroenteritis, AAA, incarcerated hernia, bowel obstruction, constipation, inflammatory bowel, hepatitis, peptic ulcer disease, splenic infarction, perforated viscus, vulvitis, ovarian torsion, PID, kidney stone, placenta abruption, this is not meant to be an all-inclusive listable EKG interpreted by me (3pts min.). @ -None X-rays interpreted by me (1pt min.). @ -None done CT interpreted by me (1pt min.). @ -None done U/S interpreted by me (1pt. min.). @ -None done What testing was considered but not performed or refused? (CT, X-rays, U/S, labs)? Why? @ -CT ordered as inpatient aspect What meds were considered but not given or refused? Why? @ -None Did you discuss the management of the patient with other professionals (professionals i.e. , PA, BILINGUAL MEDICAL ASSISTANT, lab, RT, psych nurse, social science teacher, television writer, te acher, chief supply chain officer, case sealer)? Give summary @ -Herman nurse practitioner for [facility] for admission with CAT scan, repeat labs, fluid hydration, pain control and possible GI consult Was smoking cessation discussed for >3mins.? @ -No Was critical care preformed (if so, how long)? @ -No Were there social determinants of health that impacted care today? How? (Homelessness, low income, unemployed, alcoholism, drug addiction, transportation, low edu. Level, literacy, decrease access to med. care, residential, rehab)? @ -No Was there de-escalation of care discussed even if they declined (Discuss DNR or withdrawal of care, Hospice)? DNR status @ -No What co-morbidities impacted this encounter? (DM, HTN, Smoking, COPD, CAD, Cancer, CVA, ARF, Chemo, Hep., AIDS, mental health diagnosis, sleep apnea, morbid obesity)? @ -Recurrent pancreatitis Was patient admitted / discharged? Hospital course, mention meds given and route, prescriptions, significant lab abnormalities, going to OR and other pertinent info. @ -Admitted patient has elevated lipase, amylase pain consistent with acute pancreatitis. Patient will be admitted nothing by mouth IV fluids, pain control and antiemetics. Undiagnosed new problem with uncertain prognosis? @ -No Drug Therapy requiring intensive monitoring for toxicity (Heparin, Nitro, Insulin, Cardizem)? @ -No Were any procedures done? @ -No Diagnosis/symptom? @ -Acute pancreatitis Acute, or Chronic, or Acute on Chronic? @ -Acute on chronic Uncomplicated (without systemic symptoms) or Complicated (systemic symptoms)? @ -Uncomplicated Side effects of treatment? @ -No Exacerbation, Progression, or Severe Exacerbation? @ -No Poses a threat to life or bodily function? How? (Chest pain, [place], [place], pneumonia, PE, COPD, DKA, ARF, appy, cholecystitis, CVA, Diverticulitis, Homicidal, Suici tyler, threat to staff... and all critical care pts) @ -No - Lab Data Result diagrams: 10/25/22 08:24 10/25/22 08:24 Lab Results 10/25/22 10/25/22 Range/Units 08:24 08:24 WBC 12.5 H (3.8-10.6) k/uL RBC 4.96 (3.80-5.40) m/uL Hgb 13.8 (11.4-16.0) gm/dL Hct 40.8 (34.0-46.0) % MCV 82.3 (80.0-100.0) fL MCH 27.9 (25.0-35.0) pg MCHC 33.8 (31.0-37.0) g/dL RDW 14.8 (11.5-15.5) % Plt Count 189 (150-450) k/uL MPV 7.8 Neutrophils % 86 % Lymphocytes % 9 % Monocytes % 4 % Eosinophils % 1 % Basophils % 0 % Neutrophils # 10.7 H (1.3-7.7) k/uL Lymphocytes # 1.1 (1.0-4.8) k/uL Monocytes # 0.5 (0-1.0) k/uL Eosinophils # 0.1 (0-0.7) k/uL Basophils # 0.0 (0-0.2) k/uL Sodium 138 (137-145) mmol/L Potassium 4.1 (3.5-5.1) mmol/L Chloride 104 (98-107) mmol/L Carbon Dioxide 26 (22-30) mmol/L Anion Gap 8 mmol/L BUN 16 (7-17) mg/dL Creatinine 0.78 (0.52-1.04) mg/dL Est GFR (CKD-EPI)AfAm >90 (>60 ml/min/1.73 sqM) Est GFR (CKD-EPI)NonAf 86 (>60 ml/min/1.73 sqM) Glucose 127 H (74-99) mg/dL Calcium 9.0 (8.4-10.2) mg/dL Total Bilirubin 0.6 (0.2-1.3) mg/dL AST 21 (14-36) U/L ALT 19 (4-34) U/L Alkaline Phosphatase 83 (38-126) U/L Total Protein 6.8 (6.3-8.2) g/dL Albumin 3.8 (3.5-5.0) g/dL Amylase 375 H* (30-110) U/L Lipase 3234 H (23-300) U/L Disposition Clinical Impression: Acute pancreatitis Disposition: ADMITTED IP TO THIS HOSP Condition: Fair Referrals: Mina Brower MD [Primary Care Provider] - 1-2 days Time of Disposition: 09:08
[2022-10-25 08:57] LABS: Lipase 3234 U/L (23-300)
[2022-10-25] MEDS ORDERED: NALOXONE 0.4 MG/ML 1 ML VIAL IV PRN (09:02)
[2022-10-25] MEDS ORDERED: SODIUM CHLORIDE 0.9% 1,000 ML IV SCH (09:15)
--- NOTE | 2022-10-25 10:08 | CT ---
EXAMINATION TYPE: CT abdomen pelvis w con CT DLP: 1594.6 mGycm, Automated exposure control for dose reduction was used. DATE OF EXAM: 10/25/2022 9:57 AM COMPARISON: CT abdomen pelvis most recent from 04/16/2021. CLINICAL INDICATION:Female, 56 years old with history of pancreatitis; Pancreatitis TECHNIQUE: Standard CT of the abdomen and pelvis following the administration of 100 cc of Isovue 3 00 IV contrast material. Coronal and sagittal reformats were performed. FINDINGS: LOWER CHEST: Posterior dependent subsegmental atelectasis is noted. ABDOMEN LIVER: Stable hepatic cysts with largest measuring up to 2.2 cm. GALLBLADDER AND BILE DUCTS: The gallbladder is surgically absent. PANCREAS: Heterogenous enhancement of the pancreas with surrounding inflammatory changes and trace fl uid. No organized peripancreatic fluid collection. No parenchymal calcifications. No pancreatic ducta l dilatation. The portal vein, SMV, and splenic vein are patent. No evidence for pseudoaneurysm. SPLEEN: Heterogenous spleen with multiple stable hypodense lesions demonstrated. These are likely davide ign due to stability. ADRENAL GLANDS: Unremarkable. KIDNEYS AND URETERS: No evidence of hydronephrosis or renal calculus. The kidneys enhance symmetrical ly. Subcentimeter stable cortical focus within the posterior left mid kidney which is too small to ch aracterize but likely represents a cyst. PELVIS BLADDER: Unremarkable REPRODUCTIVE: Unremarkable. ABDOMEN & PELVIS STOMACH AND BOWEL: Small hiatal hernia, duodenum is unremarkable. Distal colonic diverticulosis witho ut evidence for acute diverticulitis. No evidence of bowel obstruction. PERITONEUM: No evidence of pneumoperitoneum or free fluid. VASCULATURE: No evidence of aortic aneurysm. MUSCULOSKELETAL: No acute osseous abnormalities LYMPH NODES: No gross evidence for lymphadenopathy. SOFT TISSUE/ABDOMINAL WALL: Small fat filled umbilical hernia. IMPRESSION: 1. Findings consistent with acute interstitial edematous pancreatitis. No organized peripancreatic f luid collections or vascular locations. 2. Colonic diverticulosis without evidence for acute diverticulitis. 3. Multiple stable hypodense lesions within the spleen. These are likely benign due to stability from 2020.
[2022-10-25 10:50] LABS: Appearance,Urine Clear (Clear); Bilirubin,Urine Negative (Negative); Blood,Urine Negative (Negative); Color,Urine Light Yellow; Glucose,Urine (UA) Negative (Negative); Ketones,Urine Trace (Negative); Leukocyte Esterase,Urine Negative (Negative); Nitrite,Urine Negative (Negative); PH, Urine 7.5 (5.0-8.0); Protein,Urine Negative (Negative); Specific Gravity,Urine 1.024 (1.001-1.035); Urobilinogen,Urine <2.0 mg/dL (<2.0)
[2022-10-25] MEDS: HYDROmorphone 0.5 MG/0.5 ML SYRINGE IVP PRN ×4 (12:46→22:17)
--- NOTE | 2022-10-25 13:35 | P.HPIM ---
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 pylori duodenal ulcer, and diverticulitis. She presented to the emergency department with a chief complaint of epigastric and left upper quadrant abdominal pain, nausea, and vomiting. Patient seen and fully evaluated in ER room 11 and reported the symptoms began approximately 24 hours ago and progressively worsened. Patient states abdominal pain radiates straight through into her back and left flank similar to previous episodes of her pancreatitis. patient states last episode of pancreatitis was greater than 18 months ago. Patient denies having any other complaints including fever, chills, diaphoresis, headache, lightheadedness, dizziness, chest pain or palpitations, shortness of breath, cough, congestion, or experiencing any urinary or bowel complaints. Patient reports past surgical history of cholecystectomy, appendectomy, and hysterectomy. She underwent full evaluation in the emergency department. Labs completed and reviewed. CBC consistent with leukocytosis with WBC count of 12.5 with left shift with neutrophils of 10.7. BMP unremarkable. Liver profile also unremarkable. Amylase critical at 375 and lipase elevated at 3234. urinalysis was negative for blood or infection. CT abdomen and pelvis with IV contrast was completed in radiology report reviewed showing findings consistent with acute interstitial edematous pancreatitis with no organized. Pancreatic fluid collections or vascular locations, colonic diverticulosis without evidence of acute diverticulitis, and multiple stable hypodense lesions within the spleen (reported likely benign due to stability from 2020). Discussed patient reports, clinical findings, laboratory analysis, and imaging findings in detail with ED provider and patient being admitted under our services to general medical unit time.at this time. Review of systems: Pertinent positives and negatives as discussed in HPI, a complete review of systems was performed and all other systems are negative. Physical exam: Vital signs reviewed and stable. General: Nontoxic, no distress and appears stated age. Derm: Skin warm and dry, normal coloration for ethnicity. Head: Atraumatic, normocephalic and symmetric. Eyes: EOMs intact, no lid lag, and anicteric sclera Mouth: no lip lesions, mucus membranes moist Cardiovascular: regular rate and rhythm with normal S1S2, no murmur, positive posterior tibial pulses bilaterally, and cap refill < 2 seconds. Lungs: Respirations even, regular, and unlabored on room air. Lungs CTA bilaterally, no rhonchi, no rales, no wheezing, and no accessory muscle usage. Abdominal: soft, tenderness upon palpation to epigastric and left upper quadrant, no guarding, no appreciable organomegaly. shell press operator and Cullens signs. Ext: ROM intact. No gross muscle atrophy, no edema, no contractures Neuro: Speech clear, face symmetrical and CN II-XII grossly intact with no noted focal neuro deficits Psych: Alert and oriented to person, place, time, and situation. Appropriate and pleasant affect. Assessment and Plan of Care: Acute pancreatitis Intractable abdominal pain, nausea, and vomiting secondary to above -Labs completed and reviewed. CBC consistent with leukocytosis with WBC count of 12.5 with left shift with neutrophils of 10.7. BMP unremarkable. Liver profile also unremarkable. Amylase critical at 375 and lipase elevated at 3234. -Urinalysis was negative for blood or infection. -CT abdomen and pelvis with IV contrast was completed in radiology report reviewed showing findings consistent with acute interstitial edematous pancreatitis with no organized. Pancreatic fluid collections or vascular locations, colonic diverticulosis without evidence of acute diverticulitis, and multiple stable hypodense lesions within the spleen (reported likely benign due to stability from 2020). -Discussed patient reports, clinical findings, laboratory analysis, and imaging findings in detail with ED provider and patient being admitted under our services to general medical unit time.at this time. -NPO may advance to clear liquids as pt tolerates. -Pain management with Toradol 15 mg IVP every 6 hours for mild to moderate pain and Dilaudid 1 mg IVP every 3 hours as needed for severe pain. -Antiemetics as needed for nausea and/or vomiting with Zofran 4 mg ICP every 6 hours or Compazine 10 mg IVP if zofran not controlling. -Vigorous IV fluid hydration with lactated Ringer's at 150 mL's per hour. Splenic lesions -Radiologist reports stable hypodense lesions within the time due to stability from 2020. Recommend patient continue to follow up outpatient for long-term monitoring. The patient is admitted with an anticipated greater than 2 midnight stay for evaluation of acute pancreatitis CODE STATUS: Full code DVT prophylaxis: Lovenox Discussed with: Pt, pt's at bedside, RN, and ED physician. Anticipated discharge date: 2-[address]: Home Patient was seen independently by Nurse Practitioner. This document was prepared using [employer] dictation software. Please allow for errors in second baller while rare they do occur. Herman Levy NP rendered care for this patient independently, reviewed the findings and plan as documented in the note above. I did not physically speak with or examine the patient on this date. Past Medical History Past Medical History: Blood Disorder, Eye Disorder, GERD/Reflux, Pneumonia Additional Past Medical History / Comment(s): pancreatitis, duodenal ulcer, H. Pylori, diverticulitis History of Any Multi-Drug Resistant Organisms: None Reported Past Surgical History: Appendectomy, Breast Surgery, Cholecystectomy, Hysterectomy Additional Past Surgical History / Comment(s): breast biopsy, colonoscopy Past Anesthesia/Blood Transfusion Reactions: No Reported Reaction Past Psychological History: No Psychological Hx Reported Smoking Status: Never smoker Past Alcohol Use History: None Reported Past Drug Use History: None Reported - Past Family History Father Family Medical History: Cancer Additional Family Medical History / Comment(s): esophageal Mother Family Medical History: CVA/TIA Sister(s) Family Medical History: Cancer Additional Family Medical History / Comment(s): COLON Medications and Allergies Home Medications Medication Instructions Recorded Confirmed Type Loratadine [Claritin] 10 mg PO DAILY 03/20/14 10/25/22 History RABEprazole SODIUM [Aciphex] 20 mg PO BID 01/18/17 10/25/22 History estradioL [Divigel] 1 gm TOPICAL DAILY 03/13/18 10/25/22 History Clindamycin Phosphate [Cleocin T 1 applic TOPICAL HS 10/25/22 10/25/22 History 1%] Tretinoin [Tretinoin 0.1%] 1 applic TOPICAL HS 10/25/22 10/25/22 History Allergies Allergy/AdvReac Type Severity Reaction Status Date / Time No Known Allergies Allergy Verified 10/25/22 10:00 Physical Exam Vitals: Vital Signs Temp Pulse Resp BP Pulse Ox 10/25/22 09:49 97.8 F 73 18 111/76 98 10/25/22 08:21 97.5 F L 57 L 20 122/79 99 10/25/22 08:02 98.1 F 71 22 118/78 99 Intake and Output 10/24/22 10/25/22 10/25/22 22:59 06:59 14:59 Other: Voiding Method Toilet Weight 90.718 kg Results CBC & Chem 7: 10/25/22 08:24 10/25/22 08:24 Labs: Abnormal Lab Results - Last 24 Hours (Table) 10/25/22 10/25/22 10/25/22 Range/Units 08:24 08:24 10:31 WBC 12.5 H (3.8-10.6) k/uL Neutrophils # 10.7 H (1.3-7.7) k/uL Glucose 127 H (74-99) mg/dL Amylase 375 H* (30-110) U/L Lipase 3234 H (23-300) U/L Urine Ketones Trace H (Negative) Thrombosis Risk Factor Assmnt - Choose All That Apply Any of the Below Risk Factors Present?: Yes Each Factor Represents 1 point: Age 41-60 years Other Risk Factors: No Other congenital or acquired thrombophilia - If yes, enter type in comment: No Thrombosis Risk Factor Assessment Total Risk Factor Score: 1 Thrombosis Risk Factor Assessment Level: Low Risk
[2022-10-25] MEDS: PROCHLORPERAZINE INJ 10 MG/2 ML VIAL IVP PRN (13:42)
[2022-10-25] MEDS: LACTATED RINGERS 1,000 ML IV SCH ×2 (14:34→21:06)
[2022-10-25] MEDS: KETOROLAC 15 MG/ML 1 ML VIAL IVP PRN (15:23)
[2022-10-25] MEDS: ONDANSETRON 4 MG/2 ML VIAL IVP PRN (17:27)
[2022-10-25] MEDS: PANTOPRAZOLE 40 MG TABLET PO SCH (20:09)
[2022-10-26] MEDS: ONDANSETRON 4 MG/2 ML VIAL IVP PRN ×3 (01:11→18:43)
[2022-10-26] MEDS: HYDROmorphone 0.5 MG/0.5 ML SYRINGE IVP PRN ×3 (01:11→07:30)
[2022-10-26] MEDS: LACTATED RINGERS 1,000 ML IV SCH ×4 (04:26→23:58)
[2022-10-26] MEDS: PROCHLORPERAZINE INJ 10 MG/2 ML VIAL IVP PRN ×3 (07:58→20:41)
[2022-10-26] MEDS ORDERED: PANTOPRAZOLE 40 MG/10 ML VIAL IV SCH (09:00)
[2022-10-26 09:30] LABS: HCT 39.7 % (37.2-46.3); HGB 12.4 g/dL (12.0-15.0); MCHC 31.2 g/dL (32.0-37.0); MCV 86.3 fL (80.0-97.0); Mean Platelet Volume 10.1 fL (9.5-12.2); NRBC Per 100 WBC 0 /100 WBCS (0.0-0.0); Platelet Count 184 X 10*3/uL (140-440); RDW 14.6 % (11.5-14.5); WBC 15.83 X 10*3/uL (4.50-10.00)
[2022-10-26] MEDS: ENOXAPARIN 40 MG/0.4 ML SYRINGE SQ SCH (10:08)
[2022-10-26] MEDS: PANTOPRAZOLE 40 MG TABLET PO SCH ×2 (10:08→20:33)
[2022-10-26] MEDS: HYDROmorphone 1 MG/ML 1 ML SYRINGE IVP PRN ×5 (10:38→23:25)
[2022-10-26] MEDS: KETOROLAC 15 MG/ML 1 ML VIAL IVP PRN ×2 (11:46→18:01)
--- NOTE | 2022-10-26 13:37 | P.PN ---
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 pylori duodenal ulcer, and diverticulitis. She presented to the emergency department with a chief complaint of epigastric and left upper quadrant abdominal pain, nausea, and vomiting. Patient seen and fully evaluated in ER room 11 and reported the symptoms began approximately 24 hours ago and progressively worsened. Patient states abdominal pain radiates straight through into her back and left flank similar to previous episodes of her pancreatitis. patient states last episode of pancreatitis was greater than 18 months ago. Patient denies having any other complaints including fever, chills, diaphoresis, headache, lightheadedness, dizziness, chest pain or palpitations, shortness of breath, cough, congestion, or experiencing any urinary or bowel complaints. Patient reports past surgical history of cholecystectomy, appendectomy, and hysterectomy. She underwent full evaluation in the emergency department. Labs completed and reviewed. CBC consistent with leukocytosis with WBC count of 12.5 with left shift with neutrophils of 10.7. BMP unremarkable. Liver profile also unremarkable. Amylase critical at 375 and lipase elevated at 3234. urinalysis was negative for blood or infection. CT abdomen and pelvis with IV contrast was completed in radiology report reviewed showing findings consistent with acute interstitial edematous pancreatitis with no organized. Pancreatic fluid collections or vascular locations, colonic diverticulosis without evidence of acute diverticulitis, and multiple stable hypodense lesions within the spleen (reported likely benign due to stability from 2020). Discussed patient reports, clinical findings, laboratory analysis, and imaging findings in detail with ED provider and patient being admitted under our services to general medical unit time.at this time. Physical exam: Patient seen and fully evaluated at bedside. She continues to report unchanged pain to epigastric and left upper quadrant. Patient reports current pain medication regimen does help in controlling pain but wears off shortly before pain medication is again due. She continues with nausea, denies any episodes of vomiting. She remains afebrile since admission. Vital signs reviewed and stable. General: Nontoxic, no distress and appears stated age. Derm: Skin warm and dry, normal coloration for ethnicity. Head: Atraumatic, normocephalic and symmetric. Eyes: EOMs intact, no lid lag, and anicteric sclera Mouth: no lip lesions, mucus membranes moist Cardiovascular: regular rate and rhythm with normal S1S2, no murmur, positive posterior tibial pulses bilaterally, and cap refill < 2 seconds. Lungs: Respirations even, regular, and unlabored on room air. Lungs CTA bilaterally, no rhonchi, no rales, no wheezing, and no accessory muscle usage. Abdominal: soft, tenderness upon palpation to epigastric and left upper quadrant, no guarding, no appreciable organomegaly. assorter and Cullens signs. Ext: ROM intact. No gross muscle atrophy, no edema, no contractures Neuro: Speech clear, face symmetrical and CN II-XII grossly intact with no noted focal neuro deficits Psych: Alert and oriented to person, place, time, and situation. Appropriate and pleasant affect. Assessment and Plan of Care: Acute pancreatitis Intractable abdominal pain, nausea, and vomiting secondary to above -Labs completed and reviewed. CBC revealing worsening leukocytosis with WBC count of 15.83 as well as worsening lipase increasing to 4612 from previous 3234. Order placed for LDH so Les score can be assessed. -CT abdomen and pelvis with IV contrast was completed and radiology report reviewed on 10/25/22 showing findings consistent with acute interstitial edematous pancreatitis with no organized. Pancreatic fluid collections or vascular locations, colonic diverticulosis without evidence of acute diverticulitis, and multiple stable hypodense lesions within the spleen (reported likely benign due to stability from 2020). -Continue with NPO may advance to clear liquids as pt tolerates. -Pain management with Toradol 15 mg IVP every 6 hours for mild to moderate pain and Dilaudid 1 mg IVP every 3 hours as needed for severe pain. -Antiemetics as needed for nausea and/or vomiting with Zofran 4 mg ICP every 6 hours or Compazine 10 mg IVP if zofran not controlling. -Continue with Vigorous IV fluid hydration with lactated Ringer's at 150 mL's per hour. Splenic lesions -Radiologist reports stable hypodense lesions within the time due to stability from 2020. Recommend patient continue to follow up outpatient for long-term monitoring. The patient is admitted with an anticipated greater than 2 midnight stay for evaluation of acute pancreatitis CODE STATUS: Full code DVT prophylaxis: Lovenox Discussed with: Pt and RN Anticipated discharge date: Pending clinical course Anticipated discharge place: Home Patient was seen independently by Nurse Practitioner. This document was prepared using [employer] dictation software. Please allow for errors in wildlife veterinarian while rare they do occur. Herman Levy, PHOTONICS TECHNICIAN rendered care for this patient independently, reviewed the findings and plan as documented in the note above. I did not physically speak with or examine the patient on this benson Objective - Vital Signs Vital signs: Vital Signs Temp 99.2 F 10/26/22 06:54 Pulse 72 10/26/22 06:54 Resp 16 10/26/22 06:54 BP 111/77 10/26/22 06:54 Pulse Ox 92 L 10/26/22 06:54 FiO2 Intake & Output 10/25/22 10/26/22 10/26/22 18:59 06:59 18:59 Weight 90.718 kg Other: Voiding Method Toilet Toilet # Voids 2 2 - Labs CBC & Chem 7: 10/26/22 05:46 10/26/22 05:46 Labs: Abnormal Lab Results - Last 24 Hours (Table) 10/25/22 10/26/22 10/26/22 Range/Units 10:31 05:46 05:46 WBC 15.83 H (4.50-10.00) X 10*3/uL MCHC 31.2 L (32.0-37.0) g/dL RDW 14.6 H (11.5-14.5) % Lipase 4612 H (23-300) U/L Urine Ketones Trace H (Negative)
[2022-10-26 13:53] LABS: African American GFR (CKD) 109.8 (60.0-200.0); Albumin 3.6 g/dL (3.8-4.9); Albumin/Globulin Ratio 1.57 (1.60-3.17); Anion Gap 10.4 mmol/L (10.00-18.00); BUN/Creat Ratio 17.02 Ratio (12.00-20.00); Blood Urea Nitrogen 12.2 mg/dL (9.0-27.0); Calcium 8.6 mg/dL (8.7-10.3); Carbon Dioxide 24.6 mmol/L (20.0-27.5); Globulin 2.3 g/dL (1.6-3.3); Non-African American GFR(CKD) 94.8 (60.0-200.0); Potassium 4.2 mmol/L (3.5-5.5); Total Bilirubin 0.4 mg/dL (0.30-1.20); Total Protein 5.9 g/dL (6.2-8.2)
[2022-10-27] MEDS: HYDROmorphone 1 MG/ML 1 ML SYRINGE IVP PRN ×6 (02:28→21:02)
[2022-10-27] MEDS: ONDANSETRON 4 MG/2 ML VIAL IVP PRN ×3 (02:28→19:52)
[2022-10-27] MEDS: KETOROLAC 15 MG/ML 1 ML VIAL IVP PRN ×3 (04:38→18:23)
[2022-10-27] MEDS: PROCHLORPERAZINE INJ 10 MG/2 ML VIAL IVP PRN ×3 (04:43→21:02)
[2022-10-27 05:28] LABS: Albumin 2.9 g/dL (3.5-5.0)
[2022-10-27 05:31] LABS: Basophils % (A) 0 %; Eosinophils # (A) 0.1 k/uL (0-0.7); Eosinophils % (A) 0 %; HCT 35.8 % (34.0-46.0); HGB 11.9 gm/dL (11.4-16.0); Lymphocytes # (A) 0.8 k/uL (1.0-4.8); Lymphocytes % (A) 5 %; MCH 27.8 pg (25.0-35.0); MCHC 33.1 g/dL (31.0-37.0); MCV 83.9 fL (80.0-100.0); Mean Platelet Volume 7.5; Monocytes # (A) 0.9 k/uL (0-1.0); Monocytes % (A) 6 %; Neutrophils # (A) 13.9 k/uL (1.3-7.7); Neutrophils % (A) 88 %; Platelet Count 168 k/uL (150-450); RBC 4.27 m/uL (3.80-5.40); RDW 14.8 % (11.5-15.5); WBC 15.9 k/uL (3.8-10.6)
[2022-10-27 05:32] LABS: Magnesium 1.8 mg/dL (1.6-2.3)
[2022-10-27 05:59] LABS: ALT 13 U/L (4-34); AST 20 U/L (14-36); African American GFR (CKD) >90 (>60 ml/min/1.73 sqM); Albumin/Globulin Ratio 1.1; Alkaline Phosphatase 67 U/L (38-126); Anion Gap 7 mmol/L; Blood Urea Nitrogen 10 mg/dL (7-17); Calcium 7.9 mg/dL (8.4-10.2); Carbon Dioxide 25 mmol/L (22-30); Chloride 100 mmol/L (98-107); Globulin 2.6 g/dL; Glucose 81 mg/dL (74-99); Non-African American GFR(CKD) >90 (>60 ml/min/1.73 sqM); Potassium 3.6 mmol/L (3.5-5.1); Sodium 132 mmol/L (137-145); Total Bilirubin 0.9 mg/dL (0.2-1.3); Total Protein 5.5 g/dL (6.3-8.2)
[2022-10-27] MEDS: LACTATED RINGERS 1,000 ML IV SCH ×3 (06:28→19:55)
[2022-10-27] MEDS: ENOXAPARIN 40 MG/0.4 ML SYRINGE SQ SCH (09:24)
[2022-10-27] MEDS: PANTOPRAZOLE 40 MG TABLET PO SCH ×2 (09:24→20:23)
--- NOTE | 2022-10-27 12:05 | P.PN ---
Subjective Progress Note Date: 10/27/22 Patient reports improvement in her abdominal pain, however, patient says that the pain is still there. Had received Dilaudid approximately 20 minutes prior to my arrival. 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 pylori duodenal ulcer, and diverticulitis who presented to the e mergency department with a chief complaint of epigastric and left upper quadrant abdominal pain, nausea, and vomiting. Patient seen and fully evaluated in ER room 11. Labs completed and reviewed. CBC consistent with leukocytosis with WBC count of 12.5 with left shift with neutrophils of 10.7. BMP unremarkable. Liver profile also unremarkable. Amylase critical at 375 and lipase elevated at 3234. urinalysis was negative for blood or infection. CT abdomen and pelvis with IV contrast was completed in radiology report reviewed showing findings consistent with acute interstitial edematous pancreatitis with no organized. Pancreatic fluid collections or vascular locations, colonic diverticulosis without evidence of acute diverticulitis, and multiple stable hypodense lesions within the spleen (reported likely benign due to stability from 2020). Discussed patient reports, clinical findings, laboratory analysis, and imaging findings in detail with ED provider and patient being admitted under our services to general medical unit time.at this time. Assessment: Acute pancreatitis Intractable abdominal pain, nausea, and vomiting secondary to above Splenic lesions Plan: Today, patient is afebrile, 128/82, heart rate 92, 93% on 2 L nasal cannula CBC shows stable white blood cell count of 15.9 Basic metabolic panel shows hyponatremia to 132 Liver function tests show total protein of 5.5, albumin of 2.9 Lipase was 652 LDH was 177 Continue IV fluids: Lactated Ringer's and 150 mL per hour Continue pain control: Dilaudid 1 mg every 3 hours when necessary, Toradol 15 mg every 6 hours when necessary Continue nausea control: Zofran 4 mg every 8 hours when necessary, Compazine 10 mg every 6 hours when necessary Continue PPI Continue nothing by mouth status Patient is full code Enoxaparin daily for DVT prophylaxis Objective - Vital Signs Vital signs: Vital Signs Temp 97.6 F 10/27/22 06:50 Pulse 92 10/27/22 06:50 Resp 18 10/27/22 09:30 BP 128/82 10/27/22 06:50 Pulse Ox 93 L 10/27/22 06:50 FiO2 Intake & Output 10/26/22 10/27/22 10/27/22 18:59 06:59 18:59 Other: Voiding Method Toilet Toilet Toilet # Voids 4 2 - Labs CBC & Chem 7: 10/27/22 04:26 10/27/22 04:26 Labs: Abnormal Lab Results - Last 24 Hours (Table) 10/26/22 10/27/22 10/27/22 Range/Units 05:46 04:26 04:26 WBC 15.9 H (3.8-10.6) k/uL Neutrophils # 13.9 H (1.3-7.7) k/uL Lymphocytes # 0.8 L (1.0-4.8) k/uL Sodium (137-145) mmol/L Calcium 8.6 L (8.7-10.3) mg/dL Total Protein 5.9 L (6.2-8.2) g/dL Albumin 3.6 L (3.8-4.9) g/dL Albumin/Globulin Ratio 1.57 L (1.60-3.17) g/dL Lipase 652 H (23-300) U/L 10/27/22 Range/Units 04:26 WBC (3.8-10.6) k/uL Neutrophils # (1.3-7.7) k/uL Lymphocytes # (1.0-4.8) k/uL Sodium 132 L (137-145) mmol/L Calcium 7.9 L (8.7-10.3) mg/dL Total Protein 5.5 L (6.2-8.2) g/dL Albumin 2.9 L (3.8-4.9) g/dL Albumin/Globulin Ratio (1.60-3.17) g/dL Lipase (23-300) U/L
[2022-10-28] MEDS: KETOROLAC 15 MG/ML 1 ML VIAL IVP PRN ×2 (01:52→06:55)
[2022-10-28] MEDS: HYDROmorphone 1 MG/ML 1 ML SYRINGE IVP PRN ×3 (01:52→12:00)
[2022-10-28] MEDS: LACTATED RINGERS 1,000 ML IV SCH ×2 (01:55→09:20)
[2022-10-28] MEDS: PROCHLORPERAZINE INJ 10 MG/2 ML VIAL IVP PRN (06:55)
[2022-10-28] MEDS: ENOXAPARIN 40 MG/0.4 ML SYRINGE SQ SCH (09:20)
[2022-10-28] MEDS: PANTOPRAZOLE 40 MG TABLET PO SCH (09:20)
[2022-10-28 09:27] VITALS: BP 115/78; PULSE 84; RESP 18; TEMP 98.5
[2022-10-28 09:34] LABS: Basophils # (A) 0.04 X 10*3/uL (0.00-0.10); Basophils % (A) 0.3 %; Eosinophils # (A) 0.19 X 10*3/uL (0.04-0.35); Eosinophils % (A) 1.3 %; HCT 33.6 % (37.2-46.3); HGB 10.8 g/dL (12.0-15.0); Immature Grans, Automated 0.3 %; Lymphocytes # (A) 0.78 X 10*3/uL (0.90-5.00); Lymphocytes % (A) 5.2 %; MCH 27.1 pg (27.0-32.0); MCHC 32.1 g/dL (32.0-37.0); MCV 84.2 fL (80.0-97.0); Mean Platelet Volume 9.9 fL (9.5-12.2); Monocytes # (A) 1.15 X 10*3/uL (0.20-1.00); Monocytes % (A) 7.7 %; NRBC Per 100 WBC 0 /100 WBCS (0.0-0.0); Neutrophils # (A) 12.73 X 10*3/uL (1.80-7.70); Neutrophils % (A) 85.2 %; Platelet Count 180 X 10*3/uL (140-440); RBC 3.99 X 10*6/uL (4.10-5.20); RDW 14.4 % (11.5-14.5); WBC 14.94 X 10*3/uL (4.50-10.00)
[2022-10-28 09:45] LABS: African American GFR (CKD) 118.9 (60.0-200.0); Anion Gap 10.8 mmol/L (10.00-18.00); BUN/Creat Ratio 12.83 Ratio (12.00-20.00); Blood Urea Nitrogen 7.7 mg/dL (9.0-27.0); Calcium 8.2 mg/dL (8.7-10.3); Carbon Dioxide 25.2 mmol/L (20.0-27.5); Magnesium 1.8 mg/dL (1.5-2.4); Non-African American GFR(CKD) 102.6 (60.0-200.0); Potassium 3.3 mmol/L (3.5-5.5)
--- NOTE | 2022-10-28 13:34 | P.DS ---
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 pylori duodenal ulcer, and diverticulitis who presented to the emergency department with a chief complaint of epigastric and left upper quadrant abdominal pain, nausea, and vomiting. Patient seen and fully evaluated in ER room 11. Labs completed and reviewed. CBC consistent with leukocytosis with WBC count of 12.5 with left shift with neutrophils of 10.7. BMP unremarkable. Liver profile also unremarkable. Amylase critical at 375 and lipase elevated at 3234. urinalysis was negative for blood or infection. CT abdomen and pelvis with IV contrast was completed in radiology report reviewed showing findings consistent with acute interstitial edematous pancreatitis with no organized. Pancreatic fluid collections or vascular locations, colonic diver ticulosis without evidence of acute diverticulitis, and multiple stable hypodense lesions within the spleen (reported likely benign due to stability from 2020). The patient was discussed in detail with ED provider and patient was admitted under our services to general medical unit time at this time. Patient was made nothing by mouth and was provided IV fluids as well as narcotics for pain control, Zofran/Compazine when necessary for nausea control. After 48 hours of hospitalization, patient was able to tolerate a diet and had significant improvement in pain. She was discharged home with instructions to follow-up with primary care physician. I spent 34 minutes coordinating this discharge on 10/28 Gen: awake, alert HEENT: normocephalic, atraumatic, good hearing acuity, moist mucous membranes Resp: good air exchange, breathing comfortably with no accessory muscle use CVS: good distal perfusion x 4, GI: soft, NTTP, ND : no SPT, no CVAT, parks catheter not present MSK: no pitting edema, no clubbing Neuro: non-focal, moving all extremities Psych: cooperative, euthymic mood Patient Condition at Discharge: Good Plan - Discharge Summary Discharge Rx Participant: No New Discharge Prescriptions: Continue Loratadine [Claritin] 10 mg PO DAILY RABEprazole SODIUM [Aciphex] 20 mg PO BID estradioL [Divigel] 1 gm TOPICAL DAILY Clindamycin Phosphate [Cleocin T 1%] 1 applic TOPICAL HS Tretinoin [Tretinoin 0.1%] 1 applic TOPICAL HS Discharge Medication List Loratadine [Claritin] 10 mg PO DAILY 03/20/14 [History] RABEprazole SODIUM [Aciphex] 20 mg PO BID 01/18/17 [History] estradioL [Divigel] 1 gm TOPICAL DAILY 03/13/18 [History] Clindamycin Phosphate [Cleocin T 1%] 1 applic TOPICAL HS 10/25/22 [History] Tretinoin [Tretinoin 0.1%] 1 applic TOPICAL HS 10/25/22 [History] Follow up Appointment(s)/Referral(s): Mina Brower MD [Primary Care Provider] - 1-2 days Discharge Disposition: HOME SELF-CARE
== END 2022-10-28 15:04 | disposition home or self-care (01) | DRG 440 ==
LOC: EC 07:59 → 6NMEDSUR 09:02 → OBSVTOIN 10-26 15:09
PROVIDERS: ADMIT Student in an Organized Health Care Education/Training Program; ATTEND Student in an Organized Health Care Education/Training Program
DX: K85.80 Other acute pancreatitis without necrosis or infection (principal); K86.1 Other chronic pancreatitis; D73.89 Other diseases of spleen; K57.30 Diverticulosis of large intestine without perforation or abscess without bleeding; D75.9 Disease of blood and blood-forming organs, unspecified; K21.9 Gastro-esophageal reflux disease without esophagitis; Z87.11 Personal history of peptic ulcer disease; Z90.49 Acquired absence of other specified parts of digestive tract; Z90.710 Acquired absence of both cervix and uterus; Z87.19 Personal history of other diseases of the digestive system
CPT/HCPCS: 36415; 74177; 80048; 80053; 81003; 82150; 83615; 83690; 83735; 85025; 85027; 96361; 96374; 96375; 99285

== ENCOUNTER → 2023-08-30 | Outpatient (CLI) | payer BC | END | disposition home or self-care (01) | LOC: LABWHC1 13:47 | PROVIDERS: ATTEND Internal Medicine Gastroenterology | DX: K86.1 Other chronic pancreatitis (principal) | CPT/HCPCS: 36415; 82306; 83036; 83970 ==